=== PATIENT | female | born 1960 | race Caucasian/White ===

== ENCOUNTER 2016-08-10 07:14 | Emergency (ER) | payer BC, OTHER ==
[~2016-08-10] VITALS: Ht 162.6 cm; Wt 61.2 kg
[~2016-08-10 07:14] MED LIST: ACC200C; ACHYD1T PO; ACYC-109 PO; ASPI-587 PO; B IN1TAB2 PO; BIRTH CONTROL PILLS PO; BISO1TAB39; BISO5TAB8; BUPR150T49; CARV6.252 PO; CHLS4PK PO; CHOL200035 PO; CHOL239.; CHOL239. PO; CITA10TA PO; DCS100C PO; DEXL60CA5 PO; DICY10CA26; DOMPERIDONE 10MG PO; DOMPERIDONE PO; DULO30CA48 PO; DULO60CA6 PO; ESOM20CA; ESTR1TAB24 PO; FLC150T PO; FLUC200T45 PO; FLUO20CA25 PO; GABA-488 PO; GEMF600T3 PO; HYDR-2890 PO; HYDR1TAB PO; IBP800T PO; LEVO250T7 PO; LORA0.5T; LOW-OGESTREL; LVT.05T PO; LYSI500T13 PO; MELO-195 PO; MULT-68 PO; NITR-65 PO; NITR100C3 PO; NORG1TAB PO; OMEP20TA2 PO; ORPH100T PO; OXYB15TA PO; OXYC-100 PO; OXYC-309 PO; PHEN200T27 PO; PHEN37.555 PO; PRD50T PO; ROPI1TAB PO; TRAM50TA2 PO
[2016-08-10] MEDS ORDERED: fentaNYL INJECTION 100 MCG/2 ML AMP ONE (07:27)
[2016-08-10] MEDS ORDERED: fentaNYL INJECTION 100 MCG/2 ML AMP IVP ONE (07:30)
[2016-08-10 07:46] LABS: BASOPHILS % (AUTO) 1 % (0-10); EOSINOPHILS # (AUTO) 0.2 10^3/uL (0.0-0.3); EOSINOPHILS % (AUTO) 3 % (0-10); LYMPHOCYTES # (AUTO) 1.7 X 10^3 (1.0-4.0); LYMPHOCYTES % (AUTO) 26 % (12-44); MEAN CORPUSCULAR HEMOGLOBIN 30 PG (25-34); MEAN CORPUSCULAR HGB CONC 33 G/DL (32-36); MEAN CORPUSCULAR VOLUME 91 FL (80-99); MEAN PLATELET VOLUME 9.9 FL (7.4-10.4); MONOCYTES # (AUTO) 0.7 X 10^3 (0.0-1.0); MONOCYTES % (AUTO) 11 % (0-12); NEUTROPHILS # (AUTO) 3.9 X 10^3 (1.8-7.8); NEUTROPHILS % (AUTO) 60 % (42-75); PLATELET COUNT 246 10^3/uL (130-400); RED BLOOD COUNT 4.33 10^6/uL (4.35-5.85); RED CELL DISTRIBUTION WIDTH 13.4 % (10.0-14.5); WHITE BLOOD COUNT 6.6 10^3/uL (4.3-11.0)
[2016-08-10 07:57] LABS: PROTHROMBIN TIME PATIENT 12.4 SEC (12.2-14.7)
[2016-08-10] MEDS ORDERED: CLINDAMYCIN 900 MG/50 ML IVPB 50 ML IV ONE (08:00)
[2016-08-10] MEDS ORDERED: TETANUS,DIPTH,PERTUSS P/F (BOOSTRIX) 0.5 ML VIAL IM ONE (08:00)
[2016-08-10 08:06] LABS: ALANINE AMINOTRANSFERASE 15 U/L (0-55); ANION GAP 9 MMOL/L (5-14); ASPARTATE AMINO TRANSFERASE 24 U/L (5-34); BILIRUBIN,TOTAL 0.3 MG/DL (0.1-1.0); BLOOD UREA NITROGEN 13 MG/DL (7-18); BUN/CREATININE RATIO 19; CALCIUM 8.7 MG/DL (8.5-10.1); CARBON DIOXIDE 23 MMOL/L (21-32); CHLORIDE 109 MMOL/L (98-107); GFR ESTIMATED > 60; GLUCOSE 111 MG/DL (70-105); POTASSIUM 4.5 MMOL/L (3.6-5.0); SODIUM 141 MMOL/L (135-145); TOTAL PROTEIN 6.3 G/DL (6.4-8.2)
[2016-08-10 08:07] LABS: ALCOHOL < 10 MG/DL (<10)
[2016-08-10] MEDS ORDERED: HYDROmorphone (DILAUDID) 2 MG/ML VIAL IM STA (08:11)
[2016-08-10] MEDS ORDERED: HYDROmorphone (DILAUDID) 2 MG/ML VIAL ONE (08:12)
--- NOTE | 2016-08-10 08:14 | Diagnostic Imaging Report ---
EXAMINATION: 3 views of the left hand. INDICATION: Injury to the fifth metacarpal with a drill. FINDINGS: There is a comminuted fracture of the radial aspect of the neck of the fifth metatarsal with multiple bone fragments seen. The largest fragment is the 5 mm in length. The fracture does not appear to involve the entire transverse plane of the neck of the fifth metacarpal and appears limited to the radial aspect. No subluxation or dislocation. No other fracture seen. Air in the soft tissues is noted. IMPRESSION: Fracture with comminution involving the radial aspect of the neck of the fifth metacarpal bone. Dictated by: Dictated on workstation # [id number]
[2016-08-10] MEDS ORDERED: NS IV 500 ML 500 ML IV ONE (08:32)
[2016-08-10] MEDS ORDERED: NS IV 500 ML 500 ML ONE (08:33)
[2016-08-10] MEDS ORDERED: ONDANSETRON 4 MG/2 ML (SDV) Z0FRAN IVP ONE (08:45)
[2016-08-10] MEDS ORDERED: LIDOCAINE 1% INJ 20 ML (XYLOCAINE) VIAL INJ ONE (10:15)
--- NOTE | 2016-08-10 10:35 | ED Upper Extremity ---
General Chief Complaint: Upper Extremity Stated Complaint: LEFT HAND INJURY Nursing Triage Note: PT PRESENTS WITH A LT HAND INJURY, STATES SHE RAN A DRILL BIT THROUGH HER HAND WHILE AT WORK. BLEEDING IS CONTROLLED AT THIS TIME WITH A GAUZE DRESSING AND WRAP. Nursing Sepsis Screen: No Definite Risk Source: patient Exam Limitations: no limitations (BEBE HARDING MD) History of Present Illness Time seen by provider: 07:26 Initial Comments This 55 presents with left hand injury after she plunged a drill press through her hand. She has deviation of the fifth finger but retains sensation and capillary refill. Tendon function seems to be affected. Injury location likely involves tendons near the fifth metacarpal. Patient denies any other injuries. Onset: just prior to arrival (BEBE HARDING MD) Allergies and Home Medications Allergies Coded Allergies: Penicillins (Verified Allergy, Unknown, 03/09/08) Home Medications Acyclovir 400 Mg Tablet 400 MG PO BID (Reported) Aspirin 81 Mg Tablet. #14 81 MG PO DAILY Prescribed by: ZANDRA BEARD on 09/30/14 0921 Carvedilol 6.25 Mg Tablet 6.25 MG PO BID (Reported) Cholecalciferol (Vitamin D3) 2,000 Unit Capsule 4,000 UNIT PO DAILY (Reported) TAKE 2 (2,000UNITS) TABS Clindamycin HCl 300 Mg Capsule #40 300 MG PO QID Prescribed by: BEBE SEVERINO on 08/10/16 1036 Dexlansoprazole 60 Mg Cap.mp 60 MG PO BID (Reported) Duloxetine HCl 30 Mg Capsule. 30 MG PO HS (Reported) TAKE ALONG WITH 60MG TAB Duloxetine Hcl 60 Mg Capsule.dr 60 MG PO HS (Reported) Estradiol 1 Mg Tablet 1 MG PO DAILY (Reported) Fluoxetine Hcl 20 Mg Capsule 20 MG PO DAILY (Reported) Gabapentin 300 Mg Capsule 300 MG PO BID (Reported) Levothyroxine Sodium 50 Mcg Tablet 50 MCG PO DAILY (Reported) Lysine Hcl 500 Mg Tablet 500 MG PO DAILY (Reported) Meloxicam 15 Mg Tablet 15 MG PO DAILY (Reported) Multivitamins W-Iron 1 Tab Tablet 1 TAB PO DAILY (Reported) Oxybutynin Chloride 15 Mg Tab.osm.24 15 MG PO DAILY (Reported) Oxycodone HCl/Acetaminophen 1 Each Tablet #60 1-2 EACH PO Q6H PRN PRN PAIN Prescribed by: BEBE SEVERINO on 08/10/16 1036 Oxycodone Hcl/Acetaminophen 1 Tab Tablet 1-2 TAB PO Q4H PRN PRN PAIN (Reported) PRN PAIN Oxycodone Hcl/Acetaminophen 1 Each Tablet #30 1-2 EACH PO Q4H Prescribed by: JACKLYN GORE on 11/25/14 0922 Constitutional: no symptoms reported EENTM: no symptoms reported Respiratory: no symptoms reported Cardiovascular: no symptoms reported Gastrointestinal: no symptoms reported Genitourinary: no symptoms reported Musculoskeletal: see HPI Skin: see HPI Psychiatric/Neurological: No Symptoms Reported (BEBE HARDING MD) Past Ucxdqby-Gebqeo-Lfxxxj Hx Patient Social History Alcohol Use: Rarely Uses Recreational Drug Use: No Smoking Status: Current Everyday Smoker Type Used: Cigarettes Recent Foreign Travel: No Contact w/Someone Who Travel: No Recent Infectious Disease Expo: No Recent Hopitalizations: No (BEBE HARDING MD) Immunizations Up To Date Date of Influenza Vaccine: Mar 23, 2014 (BEBE HARDING MD) Seasonal Allergies Seasonal Allergies: Yes (BEBE HARDING MD) Surgeries HX Surgeries: Yes (LAP TONIA, BILAT C TUNNEL, NECK ARTHROSCOPY RIGHT/ KNEE, ERCP, SKIN LESION) Surgeries: Abdominal, Bladder Surgery, Gallbladder, Hysterectomy, Orthopedic (BEBE HARDING MD) Respiratory Hx Respiratory Disorders: No (BEBE HARDING MD) Cardiovascular Hx Cardiac Disorders: Yes Cardiac Disorders: Hypertension (BEBE HARDING MD) Neurological Hx Neurological Disorders: Yes (Gastroparesis) Neurological Disorders: Neuropathy (BEBE HARDING MD) Reproductive System : No Hx Reproductive Disorders: No Sexually 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 Disease: No [employer]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 [employer] History: Hysterectomy (BEBE HARDING MD) Genitourinary Hx Genitourinary Disorders: No Genitourinary Disorders: UTI-Chronic (BEBE HARDING MD) Gastrointestinal Hx Gastrointestinal Disorders: Yes (GASTROPEENPRISES, DUMPING SYNDROME, ) Gastrointestinal Disorders: Gastroesophageal Reflux (BEBE HARDING MD) Musculoskeletal Hx Musculoskeletal Disorders: Yes Musculoskeletal Disorders: Degenerate Disk Disease, Arthritis (BEBE HARDING MD) Endocrine Hx Endocrine Disorders: No (BEBE HARDING MD) HEENT HX ENT Disorders: Yes (PARTIAL PLATE, oral herpes) (BEBE HARDING MD) Cancer Hx Cancer: No (BEBE HARDING MD) Psychosocial Hx Psychiatric Problems: Yes Behavioral Health Disorders: Depression (BEBE HARDING MD) Integumentary HX Skin/Integumentary Disorder: No (BEBE HARDING MD) Blood Transfusions Hx Blood Disorders: No (BEBE HARDING MD) Physical Exam Vital Signs Vital Sign - Last 12Hours 08/10/16 07:20 Temp 97.8 Pulse 77 Resp 22 B/P 137/96 Pulse Ox 97 O2 Delivery Room Air (EDDIE IZQUIERDO APRN) Vital Signs Capillary Refill : Less Than 3 Seconds (BEBE HARDING MD) General Appearance: WD/WN moderate distress HEENT: PERRL/EOMI normal ENT inspection Neck: normal inspection Cardiovascular: regular rate, rhythm no edema no murmur Respiratory: lungs clear normal breath sounds no respiratory distress no accessory muscle use Shoulder: normal inspection non-tender no evidence of injury normal ROM Elbow/Forearm: normal inspection, non-tender, no evidence of injury, normal ROM Wrist: Yes normal inspection, Yes non-tender, Yes no evidence of injury, Yes normal ROM Hand: Left (Circular wound penetrating through the left hand near the distal fifth metacarpal. Minimal bleeding. Deviation of the fifth finger away from the hand. 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 nml as tested no motor/sensory deficits alert normal mood/affect oriented x 3 Skin: normal color warm/dry other (See above) (BEBE HARDING MD) Progress/Results/Core Measures Results/Orders Lab Results Laboratory Tests Test 08/10/16 07:25 Range/Units Activated Partial Thromboplast Time 28 24-35 SEC Alanine Aminotransferase (ALT/SGPT) 15 0-55 U/L Albumin 4.0 3.2-4.5 G/DL Alkaline Phosphatase 101 40-136 U/L Anion Gap 9 5-14 MMOL/L Aspartate Amino Transf (AST/SGOT) 24 5-34 U/L BUN/Creatinine Ratio 19 Basophils # (Auto) 0.0 0.0-0.1 10^3/uL Basophils (%) (Auto) 1 0-10 % Blood Urea Nitrogen 13 7-18 MG/DL Calcium Level 8.7 8.5-10.1 MG/DL Carbon Dioxide Level 23 21-32 MMOL/L Chloride Level 109 H 98-107 MMOL/L Creatinine 0.70 0.60-1.30 MG/DL Eosinophils # (Auto) 0.2 0.0-0.3 10^3/uL Eosinophils (%) (Auto) 3 0-10 % Estimat Glomerular Filtration Rate > 60 Glucose Level 111 H 70-105 MG/DL Hematocrit 39 35-52 % Hemoglobin 13.1 11.5-16.0 G/DL INR Comment 1.0 0.8-1.4 Lymphocytes # (Auto) 1.7 1.0-4.0 X 10^3 Lymphocytes (%) (Auto) 26 12-44 % Mean Corpuscular Hemoglobin 30 25-34 PG Mean Corpuscular Hemoglobin Concent 33 32-36 G/DL Mean Corpuscular Volume 91 80-99 FL Mean Platelet Volume 9.9 7.4-10.4 FL Monocytes # (Auto) 0.7 0.0-1.0 X 10^3 Monocytes (%) (Auto) 11 0-12 % Neutrophils # (Auto) 3.9 1.8-7.8 X 10^3 Neutrophils (%) (Auto) 60 42-75 % Platelet Count 246 130-400 10^3/uL Potassium Level 4.5 3.6-5.0 MMOL/L Prothrombin Time 12.4 12.2-14.7 SEC Red Blood Count 4.33 L 4.35-5.85 10^6/uL Red Cell Distribution Width 13.4 10.0-14.5 % Serum Alcohol < 10 <10 MG/DL Sodium Level 141 135-145 MMOL/L Total Bilirubin 0.3 0.1-1.0 MG/DL Total Protein 6.3 L 6.4-8.2 G/DL White Blood Count 6.6 4.3-11.0 10^3/uL (EDDIE IZQUIERDO APRN) Medications Given in ED Current Medications Medications Dose Ordered Sig/Abhinav Route Start Time Stop Time Status Last Admin Dose Admin Clindamycin Phosphate/Dextrose 50 ml @ 100 mls/hr ONCE ONCE IV 08/10/16 08:00 08/10/16 08:29 DC 08/10/16 08:20 100 MLS/HR Diphtheria/ Tetanus/Acell Pertussis 0.5 ml 0.5 ml ONCE ONCE IM 08/10/16 08:00 08/10/16 08:01 DC 08/10/16 08:20 0.5 ML Fentanyl Citrate 100 mcg 100 mcg STK-MED ONCE .ROUTE 08/10/16 07:27 08/10/16 07:29 DC 08/10/16 07:33 100 MCG Ondansetron HCl 8 mg ONCE ONCE IVP 08/10/16 08:45 08/10/16 08:46 DC 08/10/16 08:48 8 MG Sodium Chloride 500 ml @ 0 mls/hr Q0M ONCE IV 08/10/16 08:32 08/10/16 08:34 DC 08/10/16 08:35 100 MLS/HR (EDDIE IZQUIERDO APRN) Vital Signs/I&O Vital Sign - Last 12Hours 08/10/16 07:20 Temp 97.8 Pulse 77 Resp 22 B/P 137/96 Pulse Ox 97 O2 Delivery Room Air (EDDIE IZQUIERDO APRN) Blood Pressure Mean: 110 Progress Note : Progress Note Pain was controlled with fentanyl and Dilaudid. X-ray showed fracture of the distal fifth metacarpal. Tetanus immunization was administered. Case was reviewed with Dr. Lira who also reviewed it with Dr. Sumner. They advised wound debridement and irrigation in the emergency room, antibiotic administration, and splinting. She should contact Dr. Sumner's office for an appointment time early next week. Patient received fentanyl and Dilaudid for pain management. Clindamycin 900 mg IV was administered for initial antibiotic prophylaxis. Wound was debrided and irrigated by Eddie Izquierdo APRN. Hand was dressed and splinted with a Colles' splint. (BEBE HARDING MD) Diagnostic Imaging Diagonstic Imaging: Xray Plain Films/CT/US/NM/MRI: hand Comments Left hand x-ray viewed by me and report reviewed. See report below: NAME: TEE WHYTE [facility] REC#: [id number] PT STATUS: REG ER : 1960 PHYSICIAN: BEBE HARDING MD ADMIT DATE: 08/10/16/ER Signed Date of Exam: 08/10/16 HAND, LEFT, 3 VIEWS EXAMINATION: 3 views of the left hand. INDICATION: Injury to the fifth metacarpal with a drill. FINDINGS: There is a comminuted fracture of the radial aspect of the neck of the fifth metatarsal with multiple bone fragments seen. The largest fragment is the 5 mm in length. The fracture does not appear to involve the entire transverse plane of the neck of the fifth metacarpal and appears limited to the radial aspect. No subluxation or dislocation. No other fracture seen. Air in the soft tissues is noted. IMPRESSION: Fracture with comminution involving the radial aspect of the neck of the fifth metacarpal bone. Dictated by: Dictated on workstation # [id number] Dict: 08/10/16801 Trans: 08/10/16816 [facility] [id number] Interpreted by: JULISSA MULLER MD Electronically signed by:JULISSA MULLER MD 08/10/16 08 (BEBE HARDING MD) Departure Communication Progress Notes 1037-hand was anesthetized with a total of 8 mL of 1 percent lidocaine without epinephrine. I then thoroughly irrigated through the wound channel with 500 mL of saline and a splash shield. No foreign bodies were identified upon exploration at the end of this. This was not sutured given the contaminated nature of it. Rather, 4 x 4 gauze was placed over the dorsal and volar wound entrances, wrapped with gauze and placed in a Colles' splint. Patient has been given clindamycin and has orthopedic follow-up scheduled. (EDDIE IZQUIERDO APRN) Impression Impression: Primary Impression: Open fracture of fifth metacarpal bone of left hand Qualified Code: S62.337B - Displaced fracture of neck of fifth metacarpal bone , left hand, initial encounter for open fracture Additional Impression: Injury of tendon of left hand Qualified Code: S66.902A - Unspecified injury of unspecified muscle, fascia and tendon at wrist and hand level, left hand, initial encounter Disposition: 01 HOME, SELF-CARE Condition: Improved Departure-Patient Inst. Decision time for Depature: 09:30 (BEBE HARDING MD) Referrals: COURTNEY DONOVAN MD (PCP/Family) Primary Care Physician HELENE SUMNER DO Patient Instructions: Hand Fracture Add. Discharge Instructions: Keep the left hand elevated to the level of the heart as much as possible. Change dressing as needed when soiled. Call Dr. Sumner's office today to schedule an appointment early next week. Use your pain medications as prescribed. Icing in 20 minute intervals may help with pain and swelling. Return to care if you have problems or concerns, especially if you develop signs of infection such as pus like drainage, increasing redness, increasing pain, or fever. Complete your antibiotics as prescribed unless otherwise directed by a physician. All discharge instructions reviewed with patient and/or family. Voiced understanding. Scripts Clindamycin HCl 300 Mg [id number] Mg PO QID #40 CAP Prov:BEBE HARDING MD 08/10/16 Oxycodone HCl/Acetaminophen (Percocet 5-325 mg Tablet)1 Each Tablet1-2 Each PO Q6H PRN PAIN #60 TAB Prov:BEBE HARDING MD 08/10/16 Copy Copies To 1: HELENE SUMNER JOSHUA T MD Aug 10, 2016 10:35 EDDIE IZQUIERDO APRN Aug 10, 2016 10:39
[2016-08-10] MEDS ORDERED: OXYC-197 PO (10:36)
[2016-08-10] MEDS ORDERED: CLIN300C11 PO (10:36)
[2016-08-10 11:17] VITALS: BP 122/72
== END 2016-08-10 11:17 | disposition home or self-care (01) ==
LOC: EDUNIT# 07:14 → ER 07:16
DX: S62.337B Displaced fracture of neck of fifth metacarpal bone, left hand, initial encounter for open fracture (principal); S66.902A Unspecified injury of unspecified muscle, fascia and tendon at wrist and hand level, left hand, initial encounter; Z23 Encounter for immunization; F17.210 Nicotine dependence, cigarettes, uncomplicated; Z79.899 Other long term (current) drug therapy; Z79.82 Long term (current) use of aspirin; W31.1XXA Contact with metalworking machines, initial encounter; Y92.59 Other trade areas as the place of occurrence of the external cause; Y99.0 Civilian activity done for income or pay
CPT/HCPCS: 36415; 73130; 80053; 80320; 85025; 85610; 85730; 90471; 90715; 96361; 96365; 96375

== ENCOUNTER → 2017-07-25 | Outpatient (CLI) | payer OTHER ==
[~2017-07-25] MED LIST changes: +CLIN300C11 PO; +OXYC-197 PO
--- NOTE | 2017-07-25 12:09 | Diagnostic Imaging Report ---
Indication: Routine screening. Comparison: Comparison is made with prior exams from 02/08/2015 and 12/29/2013. The current study was also evaluated with a Computer Aided Detection (CAD) system. Findings: Scattered parenchymal densities are identified bilaterally. The parenchymal pattern is stable. No dominant mass or malignant-appearing microcalcifications are seen. Axillae are unremarkable. Impression: BI-RADS category 1. No mammographic features suspicious for malignancy are identified. ACR BI-RADS Category 1: Negative. Result letter will be mailed to the patient. Note: At least 10% of breast cancer is not imaged by mammography. Dictated on workstation # [id number]
== END ==
LOC: RAD 09:58
PROVIDERS: ATTEND Obstetrics & Gynecology
DX: Z12.31 Encounter for screening mammogram for malignant neoplasm of breast (principal)
CPT/HCPCS: 77067

== ENCOUNTER → 2018-02-08 | Outpatient (CLI) | payer OTHER ==
--- NOTE | 2018-02-08 16:57 | Diagnostic Imaging Report ---
EXAM: MRI left foot and ankle without contrast. DATE: February 08, 2018. INDICATION: 57-year-old female, lump at the volar aspect of the foot for 3-4 weeks. COMPARISON: None. TECHNIQUE: Multiple noncontrast MRI sequences at the level of the left foot and ankle were obtained. FINDINGS: There is inconsistent nwjwl-um-pfrz of imaging, amongst the imaging sequences provided. A marker was placed at the area of specific focal concern. There is a nodular area of signal measuring approximately 15 x 10 x 7 mm in size at this location which is volar to the base of the fifth metatarsal. This lesion is similar in signal to skeletal muscle on the T1-weighted sequence and is slightly T2 hypointense. Postcontrast images were not obtained. This limits assessment for internal enhancement and evaluation of potential malignancy. This abnormality is nonspecific. There is thickening of the medial cord of the plantar fascia. There is a calcaneal heel spur. There is no evidence of active plantar fasciitis. There is common peroneal tenosynovitis and tenosynovitis of tibialis posterior and flexor digitorum longus. There is no identified tendon tear. The Lisfranc ligament proper is intact. The anterior talofibular, posterior talofibular, and calcaneofibular ligaments appear intact. The anterior and posterior syndesmotic ligaments are intact. The Achilles tendon is intact. There is no acute fracture, bone contusion, or evidence of osteonecrosis. There is a ciqzkbfl-gn-mlxzq posterior subtalar joint effusion. There is no tibiotalar joint effusion. IMPRESSION: 1. Nonspecific round mass-like area of abnormal signal within the volar soft tissues at the level of the fifth metatarsal base measuring approximately 15 x 10 x 7 mm in size. Limitations for assessment of enhancement given lack of intravenous contrast. This is entirely nonspecific in appearance. 2. Common peroneal tenosynovitis and tenosynovitis of tibialis posterior and flexor digitorum longus. No identified tendon tear. 3. Veboeifz-im-aukcz posterior subtalar joint effusion. Dictated on workstation # [id number]
== END ==
LOC: RAD 15:03
PROVIDERS: ATTEND Podiatrist Foot & Ankle Surgery
DX: M65.872 Other synovitis and tenosynovitis, left ankle and foot (principal)
CPT/HCPCS: 73721

== ENCOUNTER 2018-04-24 05:37 | Outpatient (CLI) | payer OTHER ==
[~2018-04-24] VITALS: Ht 162.6 cm; Wt 63.0 kg
[~2018-04-24 05:37] MED LIST changes: -OXYC-197 PO; +OXYC1TAB87 PO
[2018-04-24] MEDS ORDERED: GABA800T2 PO (12:48)
[2018-04-24] MEDS ORDERED: ESTR1TAB24 PO (12:48)
[2018-04-24] MEDS ORDERED: CHOL4PAC PO (12:48)
[2018-04-24] MEDS ORDERED: ACYC400T PO (12:48)
[2018-04-24] MEDS ORDERED: CARV6.252 PO (12:48)
[2018-04-24] MEDS ORDERED: FLUC200T PO (12:48)
[2018-04-24] MEDS ORDERED: OXYB15TA PO (12:48)
[2018-04-24] MEDS ORDERED: LEVO75TA6 PO (12:48)
[2018-04-24] MEDS ORDERED: FLUO40CA PO (12:48)
[2018-04-24] MEDS ORDERED: MELO15TA39 PO (12:48)
== END 2018-04-24 14:01 | disposition home or self-care (01) ==
LOC: PREOP 05:37
PROVIDERS: ATTEND Urology
DX: Z01.818 Encounter for other preprocedural examination (principal)

== ENCOUNTER 2018-04-26 06:57 | Day surgery (SDC) | payer OTHER ==
[~2018-04-26] VITALS: Ht 162.6 cm; Wt 63.0 kg
[~2018-04-26 06:57] MED LIST changes: +ACYC400T PO; +CHOL4PAC PO; +FLUC200T PO; +FLUO40CA PO; +GABA800T2 PO; +LEVO75TA6 PO; +MELO15TA39 PO
--- OUTSIDE RECORDS SUMMARY | 2018-04-26 07:00 | XMS REPORT | Clinical Summary ---
Author Author [facility] Organization [facility] Address Unknown Phone Unavailable Care Team Providers Care Endoscopy Support Specialist Name Role Phone Sandy Casanova MD PCP Source Comments Some departments are not documenting in the electronic medical record. If you do not see the information that you expected, contact Release of Information in the Health Information Management department at [phone] for further assistance in locating additional records.[facility] Allergies Active Allergy Reactions Severity Noted Date Comments Penicillins SEE COMMENTS Low 04/25/2017 Unconscious Current Medications Prescription Sig. Disp. Refills Start End Date Status Date acyclovir (ZOVIRAX) 400 Take 400 mg by mouth 02/12/20 Active mg tablet daily. 17 carvedilol (COREG) 6.25 Take 6.25 mg by mouth 02/12/20 Active mg tablet daily. 17 CHOLESTYRAMINE LIGHT 4 Take 1 packet by mouth 02/12/20 Active gram packet daily. 17 estradiol (ESTRACE) 1 mg Take 1 mg by mouth daily. 02/12/20 Active tablet 17 fluconazole (DIFLUCAN) Take 200 mg by mouth 03/20/20 Active 200 mg tablet every 7 days. Mondays 17 fluoxetine(+) (PROZAC) 40 Take 40 mg by mouth 02/12/20 Active mg capsule daily. 17 gabapentin (NEURONTIN) Take 800 mg by mouth 02/12/20 Active 800 mg tablet twice daily. 17 levothyroxine (SYNTHROID) Take 75 mcg by mouth 02/12/20 Active 75 mcg tablet daily 30 minutes before 17 breakfast. meloxicam (MOBIC) 15 mg Take 15 mg by mouth 02/12/20 Active tablet daily. 17 oxybutynin XL (DITROPAN Take 15 mg by mouth 02/12/20 Active XL) 15 mg tablet daily. 17 calcium carbonate (TUMS) Chew 1,000 mg by mouth Active 500 mg (200 mg elemental daily as needed. calcium) chewable tablet pantoprazole DR Take 40 mg by mouth twice Active (PROTONIX) 40 mg tablet daily. 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 Displaced fracture of neck of left fifth metacarpal bone with routine 2016 healing Overview: Added automatically from request for surgery [id number] Trigger finger 05/21/2017 Overview: Added automatically from request for surgery [id number] Closed displaced fracture of neck of fifth metacarpal bone of left hand with routine healing Laceration of left hand 05/07/2017 Family History Medical History Relation Name Comments Stroke Mother Osteoporosis Sister Relation Name Status Comments Mother Sister Social History Tobacco Use Types Packs/Day Years Used Date Current Every Day Smoker 1 23 Smokeless Tobacco: Never Used Alcohol Use Drinks/Week oz/Week Comments Yes very rarely Sex Assigned at Date Recorded Not on file Last Filed Vital Signs Vital Sign Reading Time Taken Blood Pressure 116/70 10/12/2017 11:03 AM CDT Pulse 61 10/12/2017 11:03 AM CDT Temperature 36.8 C (98.2 F) 07/05/2017 1:47 PM [employer] Respiratory Rate - - Oxygen Saturation 97% 07/05/2017 3:15 PM [employer] Inhaled Oxygen - - Concentration Weight 61.2 kg (135 lb) 10/12/2017 11:03 AM CDT Height 162.6 cm (5' 4.02") 10/12/2017 11:03 AM CDT Body Mass Index 23.16 10/12/2017 11:03 AM CDT Plan of Treatment Health Maintenance Due Date Last Done Comments HEPATITIS C SCREENING 1960 PHYSICAL (COMPREHENSIVE) 12/07/1966 EXAM PERTUSSIS VACCINE 12/07/1970 HIV SCREENING 12/07/1974 TETANUS VACCINE 12/07/1976 CERVICAL CANCER SCREENING 12/07/1989 BREAST CANCER SCREENING 1999 COLORECTAL CANCER 12/07/2009 SCREENING SHINGLES RECOMBINANT 12/07/2009 VACCINE (1 of 2) INFLUENZA VACCINE 01/23/2018 Results Not on filefrom Last 3 Months
--- OUTSIDE RECORDS SUMMARY | 2018-04-26 07:03 | XMS REPORT | CCD ---
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 Name Role Phone PP Unavailable CCM Unavailable Summary Purpose Interface Exchange Insurance Providers Payer name Policy type / Coverage type Covered libertarian ID Effective Begin Date Effective End Date [facility] [employer] Insurance [id number] Unknown Family history Father Diagnosis Age At Onset Hypertension Unknown Diabetes Unknown Arthritis Unknown Diabetes Unknown Sister Diagnosis Age At Onset Anemia Unknown Diabetes Unknown Hyperlipidemia Unknown Osteoporosis Unknown Arthritis Unknown Hypertension Unknown Mother Diagnosis Age At Onset Anemia Unknown Hypertension Unknown Stroke Unknown Heart Attack Unknown Diabetes Unknown Arthritis Unknown Social History Social History Element Codes Description Effective Dates Marital status Unknown Kaveh 11/01/2016 Employment Unknown Currently employed [employer] 01/06/[address]: 21816826 Current every day smoker 01/06/2016 Number of cigarettes/day Unknown 10 ( Half a pack) 01/06/2016 Number of children Unknown 2 12/01/[address]: 216036384 Never drinks alcohol 12/01/2014 Allergies, Adverse Reactions, Alerts Substance Reaction Codes Entered Date Inactivated Date Status Penicillin Unknown 12/01/2014 No Inactive Date Active Past Medical History Illness Codes Condition Status Onset Date Resolved Date Atrophy of thyroid (acquired) ICD-9: 244.8 ICD-10: E03.4 Active 03/06/2016 Unknown Encounter for general adult medical examination without abnormal findings ICD-9: V70.0 ICD-10: Z00.00 Active 11/05/2017 Unknown Essential (primary) hypertension ICD-9: 401.1 ICD-10: I10 Active 07/04/2016 Unknown Major depressive disorder, recurrent, moderate ICD-9: 296.32 ICD-10: F33.1 Active 03/06/2016 Unknown Other chronic pain ICD -9: 338.29 ICD-10: G89.29 Active 11/30/2014 Unknown VACCIN FOR INFLUENZA ICD-9: V04.81 ICD-10: Z23 Active 04/30/2017 Unknown Acute bronchitis due to other specified organisms ICD-9: 466.0 ICD-10: J20.8 Active 12/13/2016 Unknown Bitten or stung by nonvenomous insect and other nonvenomous arthropods, initial encounter ICD-9: 919.4 ICD-10: W57.XXXA Active 12/13/2016 Unknown Pain in left hand ICD- 9: 729.5 ICD-10: M79.642 Active 12/13/2016 Unknown Encounter for screening mammogram for malignant neoplasm of breast ICD-9: V76.12 ICD-10: Z12.31 Active 11/01/2016 Unknown Dysuria ICD-9: 788.1 ICD-10: R30.0 Active 03/06/2016 Unknown Hypothyroidism, unspecified ICD-9: 244.9 ICD-10: E03.9 Active 11/30/2014 Unknown Major depressive disorder, recurrent, unspecified ICD-9: 296.30 ICD-10: F33.9 Active 03/06/2016 Unknown Iliotibial band syndrome, right leg ICD-9: 728.89 ICD-10: M76.31 Active 01/05/2016 Unknown Lateral epicondylitis, right elbow ICD-9: 726.32 ICD-10: M77.11 Active 09/06/2015 Unknown Pain in right hip ICD- 9: 719.45 ICD-10: M25.551 Active 09/06/2015 Unknown Hyperlipidemia Unknown Active 12/01/2014 Unknown Hypothryroidism Unknown Active 12/01/2014 Unknown Chronic pain ICD-9: 338.29 Active 11/30/2014 Unknown ESOPHAGEAL REFLUX ICD- 9: 530.81 Active 11/30/2014 Unknown HYPOTHYROIDISM ICD-9: 244.9 Active 11/30/2014 Unknown Problems Condition Codes Effective Dates Condition Status Atrophy of thyroid (acquired) ICD-9: 244.8 ICD-10: E03.4 03/06/2016 Active Encounter for general adult medical examination without abnormal findings ICD-9: V70.0 ICD-10: Z00.00 11/05/2017 Active Essential (primary) hypertension ICD-9: 401.1 ICD-10: I10 07/04/2016 Active Major depressive disorder, recurrent, moderate ICD-9: 296.32 ICD-10: F33.1 03/06/2016 Active Other chronic pain ICD -9: 338.29 ICD-10: G89.29 11/30/2014 Active VACCIN FOR INFLUENZA ICD-9: V04.81 ICD-10: Z23 04/30/2017 Active Acute bronchitis due to other specified organisms ICD-9: 466.0 ICD-10: J20.8 12/13/2016 Active Bitten or stung by nonvenomous insect and other nonvenomous arthropods, initial encounter ICD-9: 919.4 ICD-10: W57.XXXA 12/13/2016 Active Pain in left hand ICD- 9: 729.5 ICD-10: M79.642 12/13/2016 Active Encounter for screening mammogram for malignant neoplasm of breast ICD-9: V76.12 ICD-10: Z12.31 11/01/2016 Active Dysuria ICD-9: 788.1 ICD-10: R30.0 03/06/2016 Active Hypothyroidism, unspecified ICD-9: 244.9 ICD-10: E03.9 11/30/2014 Active Major depressive disorder, recurrent, unspecified ICD-9: 296.30 ICD-10: F33.9 03/06/2016 Active Iliotibial band syndrome, right leg ICD-9: 728.89 ICD-10: M76.31 01/05/2016 Active Lateral epicondylitis, right elbow ICD-9: 726.32 ICD-10: M77.11 09/06/2015 Active Pain in right hip ICD- 9: 719.45 ICD-10: M25.551 09/06/2015 Active Hyperlipidemia Unknown 12/01/2014 Active Hypothryroidism Unknown 12/01/2014 Active Chronic pain ICD-9: 338.29 11/30/2014 Active ESOPHAGEAL REFLUX ICD- 9: 530.81 11/30/2014 Active HYPOTHYROIDISM ICD-9: 244.9 11/30/2014 Active Medications Medication Codes Instructions Start Date Stop Date Status Fill Instructions Questran Light 4 gram oral powder RxNorm: 5335336 1 PO BID as needed 1 PACKET PO BID NEEDED 02/11/2018 05/06/2019 Active Different instructions!Patient requests 90 days supply Coreg 6.25 mg tablet RxNorm: 408989 TAKE 1 TABLET BY MOUTH TWICE A DAY 01/31/2018 01/25/2019 Active - Ref: [id number] levothyroxine 75 mcg tablet RxNorm: 661968 TAKE 1 TABLET BY MOUTH DAILY 01/31/2018 01/25/2019 Active - Ref: [id number] meloxicam 15 mg tablet RxNorm: 167098 Tablet(s) TAKE 1 TABLET BY MOUTH DAILY 11/05/2017 10/30/2018 Active pantoprazole 40 mg tablet,delayed release RxNorm: 954565 1 Tablet(s) PO BID 11/05/2017 10/30/2018 Active acyclovir 400 mg tablet RxNorm: 046394 Tablet(s) TAKE 1 TABLET BY MOUTH DAILY 11/05/2017 10/30/2018 Active fluoxetine 40 mg capsule RxNorm: 135991 Capsule(s) TAKE 1 CAPSULE BY MOUTH DAILY 11/05/2017 10/30/2018 Active hydrocodone 10 mg-acetaminophen 325 mg tablet RxNorm: 211911 1 Tablet(s) PO QID as needed pain 11/05/2017 12/04/2017 Inactive gabapentin 800 mg tablet RxNorm: 887240 1 Tablet(s) PO BID 10/30/2018 Active oxybutynin chloride ER 15 mg tablet,extended release 24 hr RxNorm: 494325 Tablet(s ) TAKE 1 TABLET BY MOUTH DAILY 11/05/2017 10/30/2018 Active pantoprazole 40 mg tablet,delayed release RxNorm: 768380 1 Tablet(s) PO BID 11/05/2017 11/04/2017 Inactive fluoxetine 40 mg capsule RxNorm: 986632 TAKE 1 CAPSULE BY MOUTH DAILY 08/13/2017 11/04/2017 Inactive - First Attempt Ref: [id number] gabapentin 800 mg tablet RxNorm: 277791 1 Tablet(s) PO BID 11/04/2017 Inactive hydrocodone 10 mg-acetaminophen 325 mg tablet RxNorm: 613240 1 Tablet(s) PO QID as needed pain 07/13/2017 08/11/2017 Inactive meloxicam 15 mg tablet RxNorm: 375002 TAKE 1 TABLET BY MOUTH DAILY 06/19/2017 11/04/2017 Inactive - Ref: [id number] acyclovir 400 mg tablet RxNorm: 146827 TAKE 1 TABLET BY MOUTH DAILY 06/19/2017 09/16/2017 Inactive - Ref: [id number] oxybutynin chloride ER 15 mg tablet,extended release 24 hr RxNorm: 088603 TAKE 1 TABLET BY MOUTH DAILY 06/19/20172017 Inactive - Ref: [id number] hydrocodone 10 mg-acetaminophen 325 mg tablet RxNorm: 709345 1 Tablet(s) PO QID as needed pain 04/30/2017 05/29/2017 Inactive dexlansoprazole 60 mg capsule,biphase delayed release RxNorm: 505003 1 Capsule(s) PO BID 03/06/2017 11/04/2017 Inactive oxycodone-acetaminophen 5 mg-325 mg tablet RxNorm: 1796436 1to 2 Tablet(s) PO Q4H as needed 02/05/2017 No Stop Date Active meloxicam 15 mg tablet RxNorm: 699469 Take 1 tablet by mouth daily 01/12/2017 06/18/2017 Inactive - First Attempt Ref: [id number] doxycycline hyclate 100 mg capsule RxNorm: 5821540 1 Capsule(s) PO BID 12/13/2016 12/26/2016 Inactive Coreg 6.25 mg tablet RxNorm: 570570 Tablet(s) Take 1 tablet by mouth two times daily 11/24/2016 11/18/2017 Inactive levothyroxine 75 mcg tablet RxNorm: 804818 1 Tablet(s) PO daily take 30 minutes prior to taking other medications or eating 11/22/2016 11/16/2017 Inactive Coreg 6.25 mg tablet RxNorm: 852534 Take 1 tablet by mouth two times daily 11/21/2016 11/23/2016 Inactive - Ref: [id number] levothyroxine 50 mcg tablet RxNorm: 163703 Take 1 tablet by mouth daily 11/21/2016 11/21/2016 Inactive - Ref: [id number] acyclovir 400 mg tablet RxNorm: 899265 Take 1 tablet by mouth daily Rx written by ANTONINO: LUIS MONTANO 11/21/2016 06/18/2017 Inactive - Ref: [id number] Dexilant 60 mg capsule, delayed release RxNorm: 536462 1 Capsule(s) PO BID 11/01/2016 01/24/2018 Inactive estradiol 1 mg tablet RxNorm: 967359 1 Tablet(s) PO daily 201601/24/2018 Inactive levothyroxine 75 mcg tablet RxNorm: 064055 1 Tablet(s) PO daily take 30 minutes prior to taking other medications or eating 11/01/2016 11/21/2016 Inactive estradiol 1 mg tablet RxNorm: 884056 1 Tablet(s) PO daily 201610/31/2016 Inactive oxybutynin chloride ER 15 mg tablet,extended release 24 hr RxNorm: 579379 1 Tablet (s) PO daily 11/01/2016 06/18/2017 Inactive gabapentin 800 mg tablet RxNorm: 299803 1 Tablet(s) PO UD 1/2 pill in morning and 1 pill at bedtime 11/01/2016 07/12/2017 Inactive meloxicam 15 mg tablet RxNorm: 400173 1 Tablet(s) PO daily Take 1 tablet by mouth daily 11/01/2016 01/11/2017 Inactive - First Attempt Ref: [id number] acyclovir 400 mg tablet RxNorm: 772488 1 Tablet(s) PO daily 03/201711/20/2016 Inactive Coreg 6.25 mg tablet RxNorm: 887805 1 Tablet(s) PO BID 201611/20/2016 Inactive fluoxetine 40 mg capsule RxNorm: 287956 1 Capsule(s) PO daily 11/01/2016 08/12/2017 Inactive meloxicam 15 mg tablet RxNorm: 828869 Take 1 tablet by mouth daily 07/24/2016 10/31/2016 Inactive - First Attempt Ref: [id number] oxybutynin chloride ER 15 mg tablet,extended release 24 hr RxNorm: 252604 1 Tablet (s) PO daily 07/19/2016 10/31/2016 Inactive fluoxetine 40 mg capsule RxNorm: 704381 1 Capsule(s) PO daily 07/19/2016 10/31/2016 Inactive gabapentin 800 mg tablet RxNorm: 965996 1 Tablet(s) PO UD 1/2 pill in morning and 1 pill at bedtime 07/19/2016 10/31/2016 Inactive Questran Light 4 gram oral powder RxNorm: 8794165 1 PO BID as needed 1 PACKET PO BID NEEDED 07/19/2016 10/11/2017 Inactive Different instructions!Patient requests 90 days supply fluoxetine 40 mg capsule RxNorm: 395033 1 Capsule(s) PO daily 07/04/2016 07/18/2016 Inactive oxybutynin chloride ER 15 mg tablet,extended release 24 hr RxNorm: 165329 1 Tablet (s) PO daily 07/04/2016 07/18/2016 Inactive Questran Light 4 gram oral powder RxNorm: 6527935 1 PO BID as needed 1 PACKET PO BID NEEDED 07/04/2016 07/18/2016 Inactive Different instructions!Patient requests 90 days supply gabapentin 800 mg tablet RxNorm: 026013 1 Tablet(s) PO UD 1/2 pill in morning and 1 pill at bedtime 07/04/2016 07/18/2016 Inactive Questran Light 4 gram oral powder RxNorm: 8056246 1 PACKET PO TID NEEDED 05/24/2016 10/20/2016 Inactive Patient requests 90 days supply Questran Light 4 gram oral powder RxNorm: 4740747 1 PACKET PO BID NEEDED 05/24/2016 07/03/2016 Inactive Different instructions!Patient requests 90 days supply Questran Light 4 gram oral powder RxNorm: 9407282 1 packet PO BID as needed 05/23/2016 05/23/2016 Inactive Different instructions! Questran Light 4 gram oral powder RxNorm: 7253889 1 packet PO TID as needed 05/23/2016 05/22/2016 Inactive Questran Light 4 gram oral powder RxNorm: 2447428 1 packet PO TID as needed 03/07/2016 05/22/2016 Inactive gabapentin 800 mg tablet RxNorm: 980650 1 Tablet(s) PO UD 1/2 pill in morning and 1 pill at bedtime 03/07/2016 07/03/2016 Inactive meloxicam 15 mg tablet RxNorm: 638884 1 Tablet(s) PO daily 07/03/2016 Inactive duloxetine 60 mg capsule,delayed release RxNorm: 746159 1 Capsule(s) PO QHS take in additon to 30mg pills 01/06/20162015 Inactive levothyroxine 75 mcg tablet RxNorm: 851116 1 Tablet(s) PO daily take 30 minutes prior to taking other medications or eating 01/06/2016 07/03/2016 Inactive hydrocodone 10 mg-acetaminophen 325 mg tablet RxNorm: 409369 1 Tablet(s) PO QID as needed pain 01/06/2016 02/04/2016 Inactive meloxicam 15 mg tablet RxNorm: 704330 1 Tablet(s) PO daily 01/05/2016 Inactive levothyroxine 75 mcg tablet RxNorm: 255575 1 Tablet(s) PO daily take 30 minutes prior to taking other medications or eating 01/06/2016 01/05/2016 Inactive fluoxetine 10 mg capsule RxNorm: 689478 1 Capsule(s) PO daily 01/06/2016 07/03/2016 Inactive gabapentin 300 mg capsule RxNorm: 662862 1 Capsule(s) PO BID 01/05/2016 Inactive take one capsule by mouth every 6 hours as needed and 1 capsule bymouth every night at bedtime gabapentin 300 mg capsule RxNorm: 878485 1 Capsule(s) PO QAM and 2 Capsules PO QPM 01/06/2016 03/06/2016 Inactive meloxicam 15 mg tablet RxNorm: 423562 1 Tablet(s) PO daily 01/05/2016 Inactive duloxetine 30 mg capsule,delayed release RxNorm: 843712 Capsule(s) 1 CAPSULE(S) PO QHS 09/21/2015 06/19/2016 Inactive Coreg 6.25 mg tablet RxNorm: 773132 1 Tablet(s) PO BID 201510/31/2016 Inactive fluoxetine 20 mg capsule RxNorm: 669898 1 Capsule(s) PO daily 09/21/2015 01/05/2016 Inactive acyclovir 400 mg tablet RxNorm: 740508 1 Tablet(s) PO daily 10/31/2016 Inactive levothyroxine 50 mcg tablet RxNorm: 372305 1 Tablet(s) PO daily 09/21/2015 01/05/2016 Inactive Cipro 500 mg tablet RxNorm: 235930 1 Tablet(s) PO BID 201508/02/2015 Inactive Cipro 500 mg tablet RxNorm: 151543 1 Tablet(s) PO BID 201508/09/2015 Inactive Diflucan 150 mg tablet RxNorm: 311847 1 Tablet(s) PO daily take after you finish cipro 08/03/2015 08/02/2015 Inactive Diflucan 150 mg tablet RxNorm: 338609 1 Tablet(s) PO daily take after you finish cipro 08/03/2015 08/09/2015 Inactive Coreg 6.25 mg tablet RxNorm: 572874 1 Tablet(s) PO BID 201409/20/2015 Inactive levothyroxine 50 mcg tablet RxNorm: 048332 1 Tablet(s) PO daily 05/19/2015 09/20/2015 Inactive fluoxetine 20 mg capsule RxNorm: 150806 1 Capsule(s) PO daily 03/26/2015 09/20/2015 Inactive duloxetine 30 mg capsule,delayed release RxNorm: 758666 1 CAPSULE(S) PO QHS 03/22/2015 09/20/2015 Inactive doxycycline hyclate 100 mg capsule RxNorm: 6237927 1 Capsule(s) PO BID 02/25/2015 03/06/2015 Inactive doxycycline hyclate 100 mg capsule RxNorm: 7336413 1 Capsule(s) PO BID 02/25/2015 02/24/2015 Inactive gabapentin 300 mg capsule RxNorm: 101120 1 Capsule(s) PO BID 01/05/2016 Inactive take one capsule by mouth every 6 hours as needed and 1 capsule bymouth every night at bedtime meloxicam 15 mg tablet RxNorm: 520966 1 Tablet(s) PO daily 06/201409/20/2015 Inactive duloxetine 30 mg capsule,delayed release RxNorm: 111046 1 Capsule(s) PO QHS 12/23/2014 03/21/2015 Inactive duloxetine 30 mg capsule,delayed release RxNorm: 807091 1 Capsule(s) PO QHS No Start Date 12/22/2014 Inactive oxybutynin chloride ER 15 mg tablet,extended release 24 hr RxNorm: 863968 1 Tablet (s) PO daily No Start Date 01/05/2016 Inactive lysine 500 mg tablet RxNorm: 286139 1 Tablet(s) PO daily No Start Date 01/05/2016 Inactive cholecalciferol (vitamin D3) 2,000 unit capsule RxNorm: 062240 2 Capsule(s) PO daily No Start Date 09/06/2015 Inactive oxycodone-acetaminophen 5 mg-325 mg tablet RxNorm: 3374677 1to 2 Tablet(s) PO Q4H as needed No Start Date 01/05/2016 Inactive acyclovir 400 mg tablet RxNorm: 198537 1 Tablet(s) PO daily No Start Date 09/20/2015 Inactive dexlansoprazole 60 mg capsule,biphase delayed release RxNorm: 727279 1 Capsule(s) PO BID No Start Date 10/31/2016 Inactive fluoxetine 20 mg capsule RxNorm: 083107 1 Capsule(s) PO daily No Start Date 03/25/2015 Inactive gabapentin 300 mg capsule RxNorm: 014687 1 Capsule(s) PO BID No Start Date 12/22/2014 Inactive meloxicam 15 mg tablet RxNorm: 403567 1 Tablet(s) PO daily No Start Date 12/22/2014 Inactive levothyroxine 50 mcg tablet RxNorm: 374947 1 Tablet(s) PO daily No Start Date 05/18/2015 Inactive duloxetine 60 mg capsule,delayed release RxNorm: 630588 1 Capsule(s) PO QHS No Start Date 09/20/2015 Inactive estradiol 1 mg tablet RxNorm: 525149 1 Tablet(s) PO daily No Start Date 10/31/2016 Inactive multivitamin with iron tablet RxNorm: 1 Tablet(s) PO daily No Start Date 09/06/2015 Inactive Medication Administered No Medication Administered data Immunizations Vaccine Codes Date Status Influenza CVX: 141 04/30/2017 completed Influenza CVX: 141 03/25/2014 completed Tetanus, Diptheria, Pertussis CVX: 113 completed Tetanus/Diptheria CVX: 113 06/25/1997 completed Assessments Condition Codes Effective Dates Essential (primary) hypertension ICD-10: I10 ICD-9: 401.1 11/05/2017 Other chronic pain ICD-10: G89.29 ICD-9: 338.29 11/05/2017 Major depressive disorder, recurrent, moderate ICD-10: F33.1 ICD-9: 296.32 11/05/2017 Encounter for general adult medical examination without abnormal findings ICD-10: Z00.00 ICD-9: V70.0 11/05/2017 Atrophy of thyroid (acquired) ICD-10: E03.4 ICD-9: 244.8 11/05/2017 VACCIN FOR INFLUENZA ICD-10: Z23 ICD-9: V04.81 04/30/2017 Pain in left hand ICD-10: M79.642 ICD-9: 729.5 12/13/2016 Acute bronchitis due to other specified organisms ICD-10: J20.8 ICD-9: 466.0 12/13/2016 Bitten or stung by nonvenomous insect and other nonvenomous arthropods, initial encounter ICD-10: W57.XXXA ICD-9: 919.4 12/13/2016 Encounter for screening mammogram for malignant neoplasm of breast ICD-10: Z12.31 ICD-9: V76.12 11/01/2016 Dysuria ICD-10: R30.0 ICD-9: 788.1 03/07/2016 Major depressive disorder, recurrent, unspecified ICD-10: F33.9 ICD-9: 296.30 01/06/2016 Hypothyroidism, unspecified ICD-10: E03.9 ICD-9: 244.9 01/06/2016 Iliotibial band syndrome, right leg ICD-10: M76.31 ICD-9: 728.89 01/06/2016 Lateral epicondylitis, right elbow ICD-10: M77.11 ICD-9: 726.32 09/07/2015 Pain in right hip ICD-10: M25.551 ICD-9: 719.45 09/07/2015 ESOPHAGEAL REFLUX ICD-9: 530.81 2014 Chronic pain ICD-9: 338.29 12/01/2014 HYPOTHYROIDISM ICD-9: 244.9 12/01/2014 Reason For Visit Reason For Visit Effective Dates Notes hypothyroid 11/05/2017 hypothyroid 07/13/2017 vaccination against influenza 04/30/2017 hypothyroid 03/06/2017 thumb and hand pain 12/13/2016 hypothyroid 11/01/2016 hypothyroid 07/04/2016 hypothyroid 03/07/2016 hypothyroid 01/06/2016 gastroesophageal reflux 09/07/2015 gastroesophageal reflux 12/01/2014 Results Observation Observation Code Item Item Code Result Date Free T4 Cry546 FREE T4 0.68 ng/dL 11/23/2017 Tsh Ord6 TSH (3rd IS) 1.03 uIU/mL 11/23/2017 Lipid Ord30 CHOL 159 mg/dL 11/23/2017 Lipid Ord30 HDL 37.0 mg/dl 11/23/2017 Lipid Ord30 TRIG 156 mg/dL 11/23/2017 Lipid Ord30 LDL 91 mg/dL 11/23/2017 Lipid Ord30 C/HDL 4.3 Ratio 11/23/2017 Cbc With Differential Ord2 WBC 5.37 K/ul 11/23/2017 Cbc With Differential Ord2 RBC 4.40 M/ul 11/23/2017 Cbc With Differential Ord2 HGB 13.3 g/dl 11/23/2017 Cbc With Differential Ord2 Neut% 46.9 % 11/23/2017 Cbc With Differential Ord2 HCT 40.8 % 11/23/2017 Cbc With Differential Ord2 Lymph% 33.9 % 11/23/2017 Cbc With Differential Ord2 MCV 92.7 fl 11/23/2017 Cbc With Differential Ord2 MCH 30.2 pg 11/23/2017 Cbc With Differential Ord2 [place]% 15.1 % 11/23/2017 Cbc With Differential Ord2 Eos% 3.9 % 11/23/2017 Cbc With Differential Ord2 MCHC 32.6 pg 11/23/2017 Cbc With Differential Ord2 Baso% 0.2 % 11/23/2017 Cbc With Differential Ord2 PLT 248 K/ul 11/23/2017 Cbc With Differential Ord2 Neut ABS# 2.52 K/ul 11/23/2017 Cbc With Differential Ord2 RDW 13.4 % 11/23/2017 Cbc With Differential Ord2 Lymph ABS# 1.82 K/ul 11/23/2017 Cbc With Differential Ord2 [place] ABS# 0.8 K/ul 11/23/2017 Cbc With Differential Ord2 Eos ABS# 0.2 K/ul 11/23/2017 Cbc With Differential Ord2 Baso ABS# 0.0 K/ul 11/23/2017 Comp Metabolic Inq622 NA 139 mEq/L 11/23/2017 Comp Metabolic Aex276 K 4.4 mEq/L 11/23/2017 Comp Metabolic Zyk986 CL 107 mEq/L 11/23/2017 Comp Metabolic Gnv488 CO2 26.0 mEq/L 11/23/2017 Comp Metabolic Wke438 ANION GAP 10 11/23/2017 Comp Metabolic Xkz743 GLUCOSE 108 mg/dL 11/23/2017 Comp Metabolic Xsp788 Creat 0.6 mg/dL 11/23/2017 Comp Metabolic Dsc215 eGFR 118 ml/min/1.73m2 11/23/2017 Comp Metabolic Bpd014 BUN 24 mg/dL 11/23/2017 Comp Metabolic Chm482 B/C Ratio 42.9 Ratio 11/23/2017 Comp Metabolic Pru187 CALCIUM 9.0 mg/dL 11/23/2017 Comp Metabolic Nhq515 ALK PHOS 72 U/L 11/23/2017 Comp Metabolic Qeq859 AST(SGOT) 17 U/L 11/23/2017 Comp Metabolic Qsy028 ALT(SGPT) 12 U/L 11/23/2017 Comp Metabolic Etq511 BILI T 0.4 mg/dL 11/23/2017 Comp Metabolic Kox331 ALBUMIN 3.9 g/dL 11/23/2017 Comp Metabolic Pqr861 TPRO 5.9 g/dL 11/23/2017 Comp Metabolic Lbq179 GLOB 2.0 g/dL 11/23/2017 Comp Metabolic Meu588 A/G Ratio 2.0 Ratio 11/23/2017 Comp Metabolic Rpx725 Osmo 282 mOsmo 11/23/2017 Hepatitis Panel (Abc) 68502 HEPATITIS B SURFACE AG . 05/2017 Hepatitis Panel (Abc) 84444 HEPATITIS B SURFACE AG NEGATIVE 10/04/2016 Hepatitis Panel (Abc) 06719 HEPATITIS B CORE AB, IGM . Hepatitis Panel (Abc) 10367 HEPATITIS B CORE AB, IGM NEGATIVE 10/04/2016 Hepatitis Panel (Abc) 09351 HEPATITIS A AB, IGM . 2016 Hepatitis Panel (Abc) 67000 HEPATITIS A AB, IGM NEGATIVE 05/2017 Hepatitis Panel (Abc) 83807 HEPATITIS C ANTIBODY . 2016 Hepatitis Panel (Abc) 57563 HEPATITIS C ANTIBODY NEGATIVE 05/2017 Comp Metabolic Vip422 NA 137 mEq/L 03/07/2016 Comp Metabolic Fjp925 K 3.9 mEq/L 03/07/2016 Comp Metabolic Poo679 CL 103 mEq/L 03/07/2016 Comp Metabolic Vzl361 CO2 27.0 mEq/L 03/07/2016 Comp Metabolic Xvv367 ANION GAP 11 03/07/2016 Comp Metabolic Tdl408 GLUCOSE 116 mg/dL 03/07/2016 Comp Metabolic Kju944 Creat 0.7 mg/dL 03/07/2016 Comp Metabolic Baw333 eGFR 98 ml/min/1.73m2 03/07/2016 Comp Metabolic Ssf937 BUN 20 mg/dL 03/07/2016 Comp Metabolic Qlg874 B/C Ratio 30.3 Ratio 03/07/2016 Comp Metabolic Xcm655 CALCIUM 9.3 mg/dL 03/07/2016 Comp Metabolic Ryu243 ALK PHOS 87 U/L 03/07/2016 Comp Metabolic Zxg268 AST(SGOT) 14 U/L 03/07/2016 Comp Metabolic Fve023 ALT(SGPT) 10 U/L 03/07/2016 Comp Metabolic Hxz759 BILI T 0.3 mg/dL 03/07/2016 Comp Metabolic Yxr182 ALBUMIN 4.3 g/dL 03/07/2016 Comp Metabolic Cjh754 TPRO 6.4 g/dL 03/07/2016 Comp Metabolic Uch872 GLOB 2.1 g/dL 03/07/2016 Comp Metabolic Dva724 A/G Ratio 2.0 Ratio 03/07/2016 Comp Metabolic Tgn349 Osmo 277 mOsmo 03/07/2016 Cbc With Differential Ord2 WBC 8.35 K/ul 03/07/2016 Cbc With Differential Ord2 RBC 4.39 M/ul 03/07/2016 Cbc With Differential Ord2 HGB 13.1 g/dl 03/07/2016 Cbc With Differential Ord2 HCT 40.1 % 03/07/2016 Cbc With Differential Ord2 Neut% 54.3 % 03/07/2016 Cbc With Differential Ord2 MCV 91.3 fl 03/07/2016 Cbc With Differential Ord2 Lymph% 33.2 % 03/07/2016 Cbc With Differential Ord2 MCH 29.8 pg 03/07/2016 Cbc With Differential Ord2 [place]% 9.5 % 03/07/2016 Cbc With Differential Ord2 MCHC 32.7 pg 03/07/2016 Cbc With Differential Ord2 Eos% 2.6 % 03/07/2016 Cbc With Differential Ord2 Baso% 0.4 % 03/07/2016 Cbc With Differential Ord2 PLT 270 K/ul 03/07/2016 Cbc With Differential Ord2 RDW 13.6 % 03/07/2016 Cbc With Differential Ord2 Neut ABS# 4.54 K/ul 03/07/2016 Cbc With Differential Ord2 Lymph ABS# 2.77 K/ul 03/07/2016 Cbc With Differential Ord2 [place] ABS# 0.8 K/ul 03/07/2016 Cbc With Differential Ord2 Eos ABS# 0.2 K/ul 03/07/2016 Cbc With Differential Ord2 Baso ABS# 0.0 K/ul 03/07/2016 Tsh Ord6 hTSH II 0.93 uIU/mL 03/07/2016 T4 Ord4 T4 6.0 ug/dL 03/07/2016 Free T4 Qbo744 FREE T4 0.65 ng/dL 08/27/2015 Comp Metabolic Fel476 NA 137 mEq/L 08/27/2015 Comp Metabolic Nqg501 K 4.5 mEq/L 08/27/2015 Comp Metabolic Icr812 CL 104 mEq/L 08/27/2015 Comp Metabolic Mqx032 CO2 26.0 mEq/L 08/27/2015 Comp Metabolic Wkj740 ANION GAP 12 08/27/2015 Comp Metabolic Flv191 GLUCOSE 101 mg/dL 08/27/2015 Comp Metabolic Swh682 Creat 0.5 mg/dL 08/27/2015 Comp Metabolic Ajv872 eGFR 124 ml/min/1.73m2 08/27/2015 Comp Metabolic Rya313 BUN 16 mg/dL 08/27/2015 Comp Metabolic Nhd893 B/C Ratio 29.6 Ratio 08/27/2015 Comp Metabolic Enx403 CALCIUM 9.1 mg/dL 08/27/2015 Comp Metabolic Rpx543 ALK PHOS 79 U/L 08/27/2015 Comp Metabolic Jvc469 AST(SGOT) 15 U/L 08/27/2015 Comp Metabolic Hdy229 ALT(SGPT) 12 U/L 08/27/2015 Comp Metabolic Xoq126 BILI T 0.7 mg/dL 08/27/2015 Comp Metabolic Pul467 ALBUMIN 4.2 g/dL 08/27/2015 Comp Metabolic Dru312 TPRO 6.3 g/dL 08/27/2015 Comp Metabolic Fpq757 GLOB 2.1 g/dL 08/27/2015 Comp Metabolic Znc387 A/G Ratio 2.0 Ratio 08/27/2015 Comp Metabolic Wfd210 Osmo 275 mOsmo 08/27/2015 Lipid Ord30 CHOL 259 mg/dL 08/27/2015 Lipid Ord30 HDL 50.0 mg/dl 08/27/2015 Lipid Ord30 TRIG 154 mg/dL 08/27/2015 Lipid Ord30 LDL 178 mg/dL 08/27/2015 Lipid Ord30 C/HDL 5.2 Ratio 08/27/2015 Cbc With Differential Ord2 WBC 6.02 K/ul 08/27/2015 Cbc With Differential Ord2 RBC 4.76 M/ul 08/27/2015 Cbc With Differential Ord2 HGB 14.0 g/dl 08/27/2015 Cbc With Differential Ord2 HCT 43.3 % 08/27/2015 Cbc With Differential Ord2 Neut% 55.1 % 08/27/2015 Cbc With Differential Ord2 MCV 91.0 fl 08/27/2015 Cbc With Differential Ord2 Lymph% 29.1 % 08/27/2015 Cbc With Differential Ord2 [place]% 12.5 % 08/27/2015 Cbc With Differential Ord2 MCH 29.4 pg 08/27/2015 Cbc With Differential Ord2 MCHC 32.3 pg 08/27/2015 Cbc With Differential Ord2 Eos% 3.0 % 08/27/2015 Cbc With Differential Ord2 Baso% 0.3 % 08/27/2015 Cbc With Differential Ord2 PLT 279 K/ul 08/27/2015 Cbc With Differential Ord2 Neut ABS# 3.32 K/ul 08/27/2015 Cbc With Differential Ord2 RDW 13.7 % 08/27/2015 Cbc With Differential Ord2 Lymph ABS# 1.75 K/ul 08/27/2015 Cbc With Differential Ord2 [place] ABS# 0.8 K/ul 08/27/2015 Cbc With Differential Ord2 Eos ABS# 0.2 K/ul 08/27/2015 Cbc With Differential Ord2 Baso ABS# 0.0 K/ul 08/27/2015 Cbc With Differential Ord2 New Analyzer Notice Please note new ref ranges starting 07-07-2015 due to implemntation of new five part differential hematolgy analyzer. 08/27/2015 Tsh Ord6 hTSH II 0.39 uIU/mL 08/27/2015 Culture Urine [id number] URINE CULTURE SEE NOTES 08/06/2015 Culture Urine [id number] Continued Results 08/06/2015 Urine Culture Ucult Complete >100,000 col/ml aerobic growth sent to ref lab 08/04/2015 Review of Systems System Result Effective Dates Constitutional recent illness 11/05/2017 Constitutional No chills 11/05/2017 Constitutional fatigue 11/05/2017 Constitutional No fever 11/05/2017 Constitutional No insomnia 11/05/2017 Constitutional No malaise 11/05/2017 Eyes No blindness 11/05/2017 Eyes No vision change 11/05/2017 Ears/Nose/Throat/Neck No dental pain Ears/Nose/Throat/Neck No dizziness 2017 Ears/Nose/Throat/Neck No dysphagia 2017 Ears/Nose/Throat/Neck No headache 2017 Ears/Nose/Throat/Neck No hearing loss Ears/Nose/Throat/Neck No nasal allergies 11/05/2017 Ears/Nose/Throat/Neck No sore throat Ears/Nose/Throat/Neck No postnasal drip 11/05/2017 Ears/Nose/Throat/Neck No sinus congestion 11/05/2017 Cardiovascular No chest pain/pressure Cardiovascular No dyspnea 11/05/2017 Cardiovascular No edema 11/05/2017 Cardiovascular No exercise intolerance Cardiovascular No fatigue 11/05/2017 Cardiovascular No near-syncope/dizziness 11/05/2017 Respiratory No chest tightness 2017 Respiratory No cough 11/05/2017 Respiratory No dyspnea 11/05/2017 Respiratory No pedal edema 11/05/2017 Gastrointestinal No abdominal pain 2017 Gastrointestinal No constipation 2017 Gastrointestinal No diarrhea 11/05/2017 Gastrointestinal No gastroesophageal reflux 11/05/2017 Gastrointestinal No nausea 11/05/2017 Gastrointestinal No vomiting 11/05/2017 Genitourinary/Nephrology No dysuria 11/05 Genitourinary/Nephrology No nocturia Genitourinary/Nephrology No urinary incontinence 11/05/2017 Musculoskeletal stiffness 11/05/2017 Musculoskeletal arthralgia(s) 11/05/2017 Musculoskeletal bone pain 11/05/2017 Musculoskeletal No muscle weakness 2017 Musculoskeletal No myalgias 11/05/2017 Dermatologic No rash 11/05/2017 Dermatologic No sores 11/05/2017 Neurologic No dizziness 11/05/2017 Neurologic No headache 11/05/2017 Neurologic No neck pain 11/05/2017 Neurologic No syncope 11/05/2017 Psychiatric anxiety 11/05/2017 Psychiatric depression 11/05/2017 Psychiatric disturbances of emotion 11/05 Constitutional No chills 07/13/2017 Constitutional fatigue 07/13/2017 Constitutional No fever 07/13/2017 Constitutional No insomnia 07/13/2017 Constitutional No malaise 07/13/2017 Eyes No blindness 07/13/2017 Eyes No vision change 07/13/2017 Ears/Nose/Throat/Neck No dental pain Ears/Nose/Throat/Neck No dizziness 2017 Ears/Nose/Throat/Neck No dysphagia 2017 Ears/Nose/Throat/Neck No headache 2017 Ears/Nose/Throat/Neck No hearing loss Ears/Nose/Throat/Neck No nasal allergies 07/13/2017 Ears/Nose/Throat/Neck No sore throat Ears/Nose/Throat/Neck No postnasal drip 07/13/2017 Ears/Nose/Throat/Neck No sinus congestion 07/13/2017 Cardiovascular No chest pain/pressure Cardiovascular No dyspnea 07/13/2017 Cardiovascular No edema 07/13/2017 Cardiovascular No exercise intolerance Cardiovascular No fatigue 07/13/2017 Cardiovascular No near-syncope/dizziness 07/13/2017 Respiratory No chest tightness 2017 Respiratory No cough 07/13/2017 Respiratory No dyspnea 07/13/2017 Respiratory No pedal edema 07/13/2017 Gastrointestinal No abdominal pain 2017 Gastrointestinal No constipation 2017 Gastrointestinal No diarrhea 07/13/2017 Gastrointestinal No gastroesophageal reflux 07/13/2017 Gastrointestinal No nausea 07/13/2017 Gastrointestinal No vomiting 07/13/2017 Genitourinary/Nephrology No dysuria 07/13 Genitourinary/Nephrology No nocturia Genitourinary/Nephrology No urinary incontinence 07/13/2017 Musculoskeletal stiffness 07/13/2017 Musculoskeletal arthralgia(s) 07/13/2017 Musculoskeletal No muscle weakness 2017 Musculoskeletal No myalgias 07/13/2017 Dermatologic No rash 07/13/2017 Dermatologic No sores 07/13/2017 Neurologic No dizziness 07/13/2017 Neurologic No headache 07/13/2017 Neurologic No neck pain 07/13/2017 Neurologic No syncope 07/13/2017 Psychiatric anxiety 07/13/2017 Psychiatric depression 07/13/2017 Psychiatric disturbances of emotion 07/13 Musculoskeletal bone pain 07/13/2017 Constitutional recent illness 07/13/2017 Constitutional recent illness 03/06/2017 Constitutional No chills 03/06/2017 Constitutional No fatigue 03/06/2017 Constitutional No fever 03/06/2017 Constitutional No insomnia 03/06/2017 Constitutional No malaise 03/06/2017 Eyes No blindness 03/06/2017 Eyes No vision change 03/06/2017 Ears/Nose/Throat/Neck No dental pain 05/2017 Ears/Nose/Throat/Neck No dizziness 2016 Ears/Nose/Throat/Neck No dysphagia 2016 Ears/Nose/Throat/Neck No headache 2016 Ears/Nose/Throat/Neck No hearing loss 05/2017 Ears/Nose/Throat/Neck No nasal allergies 03/06/2017 Ears/Nose/Throat/Neck No sore throat 05/2017 Ears/Nose/Throat/Neck No postnasal drip 03/06/2017 Ears/Nose/Throat/Neck No sinus congestion 03/06/2017 Cardiovascular No chest pain/pressure 05/2017 Cardiovascular No dyspnea 03/06/2017 Cardiovascular No edema 03/06/2017 Cardiovascular No exercise intolerance Cardiovascular No fatigue 03/06/2017 Cardiovascular No near-syncope/dizziness 03/06/2017 Respiratory No chest tightness 2016 Respiratory No cough 03/06/2017 Respiratory No dyspnea 03/06/2017 Respiratory No pedal edema 03/06/2017 Gastrointestinal No abdominal pain 2016 Gastrointestinal No constipation 2016 Gastrointestinal No diarrhea 03/06/2017 Gastrointestinal No gastroesophageal reflux 03/06/2017 Gastrointestinal No nausea 03/06/2017 Gastrointestinal No vomiting 03/06/2017 Genitourinary/Nephrology No dysuria 03/06 Genitourinary/Nephrology No nocturia 05/2017 Genitourinary/Nephrology No urinary incontinence 03/06/2017 Musculoskeletal stiffness 03/06/2017 Musculoskeletal swelling 03/06/2017 Musculoskeletal arthralgia(s) 03/06/2017 Musculoskeletal No muscle weakness 2016 Musculoskeletal No myalgias 03/06/2017 Dermatologic No rash 03/06/2017 Dermatologic No sores 03/06/2017 Neurologic No dizziness 03/06/2017 Neurologic No headache 03/06/2017 Neurologic No neck pain 03/06/2017 Neurologic No syncope 03/06/2017 Psychiatric anxiety 03/06/2017 Psychiatric depression 03/06/2017 Psychiatric disturbances of emotion 03/06 Constitutional recent illness 12/13/2016 Constitutional No chills 12/13/2016 Constitutional No diaphoresis 12/13/2016 Constitutional No fever 12/13/2016 Eyes No eye erythema 12/13/2016 Ears/Nose/Throat/Neck No nasal discharge 12/13/2016 Ears/Nose/Throat/Neck nasal allergies Cardiovascular No chest pain/pressure Respiratory cough 12/13/2016 Respiratory chest congestion 12/13/2016 Respiratory No dyspnea 12/13/2016 Respiratory productive sputum 12/13/2016 Gastrointestinal No abdominal pain 2016 Musculoskeletal joint complaint 2016 Dermatologic No rash 12/13/2016 Neurologic No alteration of consciousness 12/13/2016 Neurologic No mental status change 2016 Constitutional recent illness 11/01/2016 Constitutional No chills 11/01/2016 Constitutional No fatigue 11/01/2016 Constitutional No fever 11/01/2016 Constitutional No insomnia 11/01/2016 Constitutional No malaise 11/01/2016 Eyes No blindness 11/01/2016 Eyes No vision change 11/01/2016 Ears/Nose/Throat/Neck No dental pain 03/2017 Ears/Nose/Throat/Neck No dizziness 2016 Ears/Nose/Throat/Neck No dysphagia 2016 Ears/Nose/Throat/Neck No headache 2016 Ears/Nose/Throat/Neck No hearing loss 03/2017 Ears/Nose/Throat/Neck No nasal allergies 11/01/2016 Ears/Nose/Throat/Neck No sore throat 03/2017 Ears/Nose/Throat/Neck No postnasal drip 11/01/2016 Ears/Nose/Throat/Neck No sinus congestion 11/01/2016 Cardiovascular No chest pain/pressure 03/2017 Cardiovascular No dyspnea 11/01/2016 Cardiovascular No edema 11/01/2016 Cardiovascular No exercise intolerance Cardiovascular No fatigue 11/01/2016 Cardiovascular No near-syncope/dizziness 11/01/2016 Respiratory No chest tightness 2016 Respiratory No cough 11/01/2016 Respiratory No dyspnea 11/01/2016 Respiratory No pedal edema 11/01/2016 Gastrointestinal No abdominal pain 2016 Gastrointestinal No constipation 2016 Gastrointestinal No diarrhea 11/01/2016 Gastrointestinal No gastroesophageal reflux 11/01/2016 Gastrointestinal No nausea 11/01/2016 Gastrointestinal No vomiting 11/01/2016 Genitourinary/Nephrology No dysuria 11/01 Genitourinary/Nephrology No nocturia 03/2017 Genitourinary/Nephrology No urinary incontinence 11/01/2016 Musculoskeletal stiffness 11/01/2016 Musculoskeletal swelling 11/01/2016 Musculoskeletal arthralgia(s) 11/01/2016 Musculoskeletal No muscle weakness 2016 Musculoskeletal No myalgias 11/01/2016 Dermatologic No rash 11/01/2016 Dermatologic No sores 11/01/2016 Neurologic No dizziness 11/01/2016 Neurologic No headache 11/01/2016 Neurologic No neck pain 11/01/2016 Neurologic No syncope 11/01/2016 Psychiatric anxiety 11/01/2016 Psychiatric depression 11/01/2016 Constitutional recent illness 07/04/2016 Constitutional No chills 07/04/2016 Constitutional No fatigue 07/04/2016 Constitutional No fever 07/04/2016 Constitutional No insomnia 07/04/2016 Constitutional No malaise 07/04/2016 Eyes No blindness 07/04/2016 Eyes No vision change 07/04/2016 Ears/Nose/Throat/Neck No dental pain 03/2017 Ears/Nose/Throat/Neck No dizziness 2016 Ears/Nose/Throat/Neck No dysphagia 2016 Ears/Nose/Throat/Neck No headache 2016 Ears/Nose/Throat/Neck No hearing loss 03/2017 Ears/Nose/Throat/Neck No nasal allergies 07/04/2016 Ears/Nose/Throat/Neck No sore throat 03/2017 Ears/Nose/Throat/Neck No postnasal drip 07/04/2016 Ears/Nose/Throat/Neck No sinus congestion 07/04/2016 Cardiovascular No chest pain/pressure 03/2017 Cardiovascular No dyspnea 07/04/2016 Cardiovascular No edema 07/04/2016 Cardiovascular No exercise intolerance Cardiovascular No fatigue 07/04/2016 Cardiovascular No near-syncope/dizziness 07/04/2016 Respiratory No chest tightness 2016 Respiratory No cough 07/04/2016 Respiratory No dyspnea 07/04/2016 Respiratory No pedal edema 07/04/2016 Gastrointestinal No abdominal pain 2016 Gastrointestinal No constipation 2016 Gastrointestinal No diarrhea 07/04/2016 Gastrointestinal No gastroesophageal reflux 07/04/2016 Gastrointestinal No nausea 07/04/2016 Gastrointestinal No vomiting 07/04/2016 Genitourinary/Nephrology No dysuria 07/04 Genitourinary/Nephrology No nocturia 03/2017 Genitourinary/Nephrology No urinary incontinence 07/04/2016 Musculoskeletal stiffness 07/04/2016 Musculoskeletal swelling 07/04/2016 Musculoskeletal arthralgia(s) 07/04/2016 Musculoskeletal No muscle weakness 2016 Musculoskeletal No myalgias 07/04/2016 Dermatologic No rash 07/04/2016 Dermatologic No sores 07/04/2016 Neurologic No dizziness 07/04/2016 Neurologic No headache 07/04/2016 Neurologic No neck pain 07/04/2016 Neurologic No syncope 07/04/2016 Psychiatric anxiety 07/04/2016 Psychiatric depression 07/04/2016 Constitutional recent illness 03/07/2016 Constitutional No chills 03/07/2016 Constitutional No fatigue 03/07/2016 Constitutional No fever 03/07/2016 Constitutional No insomnia 03/07/2016 Constitutional No malaise 03/07/2016 Ears/Nose/Throat/Neck No dysphagia 2015 Ears/Nose/Throat/Neck No headache 2015 Ears/Nose/Throat/Neck No nasal allergies 03/07/2016 Ears/Nose/Throat/Neck No sore throat Cardiovascular No chest pain/pressure Cardiovascular No dyspnea 03/07/2016 Cardiovascular No edema 03/07/2016 Cardiovascular No exercise intolerance Cardiovascular No fatigue 03/07/2016 Cardiovascular No near-syncope/dizziness 03/07/2016 Respiratory No chest tightness 2015 Respiratory No cough 03/07/2016 Respiratory No dyspnea 03/07/2016 Respiratory No pedal edema 03/07/2016 Gastrointestinal No abdominal pain 2015 Gastrointestinal No constipation 2015 Gastrointestinal No diarrhea 03/07/2016 Gastrointestinal No gastroesophageal reflux 03/07/2016 Gastrointestinal No nausea 03/07/2016 Gastrointestinal No vomiting 03/07/2016 Genitourinary/Nephrology No dysuria 03/07 Genitourinary/Nephrology No nocturia Genitourinary/Nephrology No urinary incontinence 03/07/2016 Musculoskeletal stiffness 03/07/2016 Musculoskeletal arthralgia(s) 03/07/2016 Musculoskeletal No myalgias 03/07/2016 Psychiatric anxiety 03/07/2016 Psychiatric depression 03/07/2016 Constitutional recent illness 01/06/2016 Constitutional No chills 01/06/2016 Constitutional No fatigue 01/06/2016 Constitutional No fever 01/06/2016 Constitutional No insomnia 01/06/2016 Constitutional No malaise 01/06/2016 Eyes No blindness 01/06/2016 Eyes No vision change 01/06/2016 Ears/Nose/Throat/Neck No dental pain Ears/Nose/Throat/Neck No dizziness 2015 Ears/Nose/Throat/Neck No dysphagia 2015 Ears/Nose/Throat/Neck No headache 2015 Ears/Nose/Throat/Neck No hearing loss Ears/Nose/Throat/Neck No nasal allergies 01/06/2016 Ears/Nose/Throat/Neck No sore throat Ears/Nose/Throat/Neck No postnasal drip 01/06/2016 Ears/Nose/Throat/Neck No sinus congestion 01/06/2016 Cardiovascular No chest pain/pressure Cardiovascular No dyspnea 01/06/2016 Cardiovascular No edema 01/06/2016 Cardiovascular No exercise intolerance Cardiovascular No fatigue 01/06/2016 Cardiovascular No near-syncope/dizziness 01/06/2016 Respiratory No chest tightness 2015 Respiratory No cough 01/06/2016 Respiratory No dyspnea 01/06/2016 Respiratory No pedal edema 01/06/2016 Gastrointestinal No abdominal pain 2015 Gastrointestinal No constipation 2015 Gastrointestinal No diarrhea 01/06/2016 Gastrointestinal No gastroesophageal reflux 01/06/2016 Gastrointestinal No nausea 01/06/2016 Gastrointestinal No vomiting 01/06/2016 Genitourinary/Nephrology No dysuria 01/05 Genitourinary/Nephrology No nocturia Genitourinary/Nephrology No urinary incontinence 01/06/2016 Musculoskeletal stiffness 01/06/2016 Musculoskeletal swelling 01/06/2016 Musculoskeletal arthralgia(s) 01/06/2016 Musculoskeletal No muscle weakness 2015 Musculoskeletal No myalgias 01/06/2016 Dermatologic No rash 01/06/2016 Dermatologic No sores 01/06/2016 Neurologic No dizziness 01/06/2016 Neurologic No headache 01/06/2016 Neurologic No neck pain 01/06/2016 Neurologic No syncope 01/06/2016 Psychiatric anxiety 01/06/2016 Psychiatric depression 01/06/2016 Constitutional recent illness 09/07/2015 Constitutional No chills 09/07/2015 Constitutional No fatigue 09/07/2015 Constitutional No fever 09/07/2015 Constitutional No insomnia 09/07/2015 Constitutional No malaise 09/07/2015 Eyes No blindness 09/07/2015 Eyes No vision change 09/07/2015 Ears/Nose/Throat/Neck No dental pain Ears/Nose/Throat/Neck No dizziness 2015 Ears/Nose/Throat/Neck No dysphagia 2015 Ears/Nose/Throat/Neck No headache 2015 Ears/Nose/Throat/Neck No hearing loss Ears/Nose/Throat/Neck No nasal allergies 09/07/2015 Ears/Nose/Throat/Neck No sore throat Ears/Nose/Throat/Neck No postnasal drip 09/07/2015 Ears/Nose/Throat/Neck No sinus congestion 09/07/2015 Cardiovascular No chest pain/pressure Cardiovascular No dyspnea 09/07/2015 Cardiovascular No edema 09/07/2015 Cardiovascular No exercise intolerance Cardiovascular No fatigue 09/07/2015 Cardiovascular No near-syncope/dizziness 09/07/2015 Respiratory No chest tightness 2015 Respiratory No cough 09/07/2015 Respiratory No dyspnea 09/07/2015 Respiratory No pedal edema 09/07/2015 Gastrointestinal No abdominal pain 2015 Gastrointestinal No constipation 2015 Gastrointestinal No diarrhea 09/07/2015 Gastrointestinal No gastroesophageal reflux 09/07/2015 Gastrointestinal No nausea 09/07/2015 Gastrointestinal No vomiting 09/07/2015 Genitourinary/Nephrology No dysuria 09/06 Genitourinary/Nephrology No nocturia Genitourinary/Nephrology No urinary incontinence 09/07/2015 Musculoskeletal stiffness 09/07/2015 Musculoskeletal swelling 09/07/2015 Musculoskeletal No muscle weakness 2015 Musculoskeletal No myalgias 09/07/2015 Dermatologic No rash 09/07/2015 Dermatologic No sores 09/07/2015 Neurologic No dizziness 09/07/2015 Neurologic No headache 09/07/2015 Neurologic No neck pain 09/07/2015 Neurologic No syncope 09/07/2015 Psychiatric anxiety 09/07/2015 Psychiatric depression 09/07/2015 Musculoskeletal arthralgia(s) 09/07/2015 Constitutional recent illness 12/01/2014 Constitutional No chills 12/01/2014 Constitutional No fatigue 12/01/2014 Constitutional No fever 12/01/2014 Constitutional No insomnia 12/01/2014 Constitutional No malaise 12/01/2014 Eyes No blindness 12/01/2014 Eyes No vision change 12/01/2014 Ears/Nose/Throat/Neck No dental pain 02/2015 Ears/Nose/Throat/Neck No dizziness 2014 Ears/Nose/Throat/Neck No dysphagia 2014 Ears/Nose/Throat/Neck No headache 2014 Ears/Nose/Throat/Neck No hearing loss 02/2015 Ears/Nose/Throat/Neck No nasal allergies 12/01/2014 Ears/Nose/Throat/Neck No sore throat 02/2015 Ears/Nose/Throat/Neck No postnasal drip 12/01/2014 Ears/Nose/Throat/Neck No sinus congestion 12/01/2014 Cardiovascular No chest pain/pressure 02/2015 Cardiovascular No dyspnea 12/01/2014 Cardiovascular No edema 12/01/2014 Cardiovascular No exercise intolerance Cardiovascular No fatigue 12/01/2014 Cardiovascular No near-syncope/dizziness 12/01/2014 Respiratory No chest tightness 2014 Respiratory No cough 12/01/2014 Respiratory No dyspnea 12/01/2014 Respiratory No pedal edema 12/01/2014 Gastrointestinal No abdominal pain 2014 Gastrointestinal No constipation 2014 Gastrointestinal No diarrhea 12/01/2014 Gastrointestinal No gastroesophageal reflux 12/01/2014 Gastrointestinal No nausea 12/01/2014 Gastrointestinal No vomiting 12/01/2014 Genitourinary/Nephrology No dysuria 12/01 Genitourinary/Nephrology No nocturia 02/2015 Genitourinary/Nephrology No urinary incontinence 12/01/2014 Musculoskeletal No stiffness 12/01/2014 Musculoskeletal No swelling 12/01/2014 Musculoskeletal No muscle weakness 2014 Musculoskeletal No myalgias 12/01/2014 Dermatologic No rash 12/01/2014 Dermatologic No sores 12/01/2014 Dermatologic No scar 12/01/2014 Neurologic No dizziness 12/01/2014 Neurologic No headache 12/01/2014 Neurologic No neck pain 12/01/2014 Neurologic No syncope 12/01/2014 Psychiatric anxiety 12/01/2014 Psychiatric depression 12/01/2014 Physical Exam Exam Name System Name Item Name Status Result Effective Dates Notes Full Exam - General 1994 Constitutional general appearance Development: well developed 11/05/2017 None Full Exam - General 1994 Constitutional general appearance Development: appears stated age 0511/05/2017 None Full Exam - General 1994 Constitutional general appearance Hygiene/Attention to Grooming: good hygiene 11/05/2017 None Full Exam - General 1994 Eyes conjunctiva /eyelids Overall: conjunctiva clear 11/05/2017 None Full Exam - General 1994 Eyes conjunctiva /eyelids Overall: cornea clear 11/05/2017 None Full Exam - General 1994 Eyes conjunctiva /eyelids Overall: eyelids normal 11/05/2017 None Full Exam - General 1994 Eyes pupils and irises Overall: pupils equal, round, reactive to light and accomodation 11/05/2017 None Full Exam - General 1994 Ears/Nose/Throat otoscopic exam Overall: external auditory canals clear 11/05/2017 None Full Exam - General 1994 Ears/Nose/Throat otoscopic exam Overall: tympanic membranes clear 11/05/2017 None Full Exam - General 1994 Ears/Nose/Throat lips/teeth/gingiva Overall: benign lips 11/05/2017 None Full Exam - General 1994 Ears/Nose/Throat lips/teeth/gingiva Overall: normal dentition 11/05/2017 None Full Exam - General 1994 Ears/Nose/Throat oral cavity/pharynx/larynx Overall: oral mucosa clear 11/05/2017 None Full Exam - General 1994 Ears/Nose/Throat oral cavity/pharynx/larynx Overall: oropharyngeal mucosa clear 11/05/2017 None Full Exam - General 1994 Ears/Nose/Throat oral cavity/pharynx/larynx Overall: hypopharynx benign 11/05/2017 None Full Exam - General 1994 Ears/Nose/Throat oral cavity/pharynx/larynx Overall: no masses 11/05/2017 None Full Exam - General 1994 Respiratory auscultation Overall: breath sounds clear bilaterally 11/05/2017 None Full Exam - General 1994 Respiratory respiratory effort/rhythm Overall: no retractions 11/05/2017 None Full Exam - General 1994 Respiratory respiratory effort/rhythm Overall: normal rate 11/05/2017 None Full Exam - General 1994 Cardiovascular extremities Overall: no clubbing 11/05/2017 None Full Exam - General 1994 Cardiovascular auscultation of heart Overall: regular rate 11/05/2017 None Full Exam - General 1994 Cardiovascular auscultation of heart Overall: normal heart sounds 11/05/2017 None Full Exam - General 1994 Abdomen abdominal exam Overall: no tenderness 11/05/2017 None Full Exam - General 1994 Abdomen abdominal exam Overall: normal bowel sounds 11/05/2017 None Full Exam - General 1994 Lymphatic neck nodes Overall: anterior cervical chain benign 11/05/2017 None Full Exam - General 1994 Musculoskeletal digits and nails DIPs: fifth 11/05/2017 None Full Exam - General 1994 Musculoskeletal lower extremity Palpation - thigh: tenderness 11/05/2017 right greater trochanteric bursal inflammation Full Exam - General 1994 Musculoskeletal spine, ribs and pelvis Overall: spine benign 11/05/2017 None Full Exam - General 1994 Musculoskeletal spine, ribs and pelvis Overall: sacroiliac joint benign 11/05/2017 None Full Exam - General 1994 Musculoskeletal spine, ribs and pelvis Overall: good posture 11/05/2017 None Full Exam - General 1994 Musculoskeletal head and neck Overall: head atraumatic 11/05/2017 None Full Exam - General 1994 Musculoskeletal head and neck Overall: cervical spine benign 11/05/2017 None Full Exam - General 1994 Neurologic deep tendon reflexes Overall: deep tendon reflexes intact 11/05/2017 None Full Exam - General 1994 Neurologic cranial nerves Overall: crainial nerves 2 - 12 grossly intact 11/05/2017 None Full Exam - General 1994 Psychiatric orientation/consciousness Overall: oriented to person, place and time 11/05/2017 None Full Exam - General 1994 Psychiatric mood and affect Overall: normal mood and affect 11/05/2017 None Full Exam - General 1994 Constitutional general appearance Development: well developed 07/13/2017 None Full Exam - General 1994 Constitutional general appearance Development: appears stated age 0107/13/2017 None Full Exam - General 1994 Constitutional general appearance Hygiene/Attention to Grooming: good hygiene 07/13/2017 None Full Exam - General 1994 Eyes conjunctiva /eyelids Overall: conjunctiva clear 07/13/2017 None Full Exam - General 1994 Eyes conjunctiva /eyelids Overall: cornea clear 07/13/2017 None Full Exam - General 1994 Eyes conjunctiva /eyelids Overall: eyelids normal 07/13/2017 None Full Exam - General 1994 Eyes pupils and irises Overall: pupils equal, round, reactive to light and accomodation 07/13/2017 None Full Exam - General 1994 Ears/Nose/Throat otoscopic exam Overall: external auditory canals clear 07/13/2017 None Full Exam - General 1994 Ears/Nose/Throat otoscopic exam Overall: tympanic membranes clear 07/13/2017 None Full Exam - General 1994 Ears/Nose/Throat lips/teeth/gingiva Overall: benign lips 07/13/2017 None Full Exam - General 1994 Ears/Nose/Throat lips/teeth/gingiva Overall: normal dentition 07/13/2017 None Full Exam - General 1994 Ears/Nose/Throat oral cavity/pharynx/larynx Overall: oral mucosa clear 07/13/2017 None Full Exam - General 1994 Ears/Nose/Throat oral cavity/pharynx/larynx Overall: oropharyngeal mucosa clear 07/13/2017 None Full Exam - General 1994 Ears/Nose/Throat oral cavity/pharynx/larynx Overall: hypopharynx benign 07/13/2017 None Full Exam - General 1994 Ears/Nose/Throat oral cavity/pharynx/larynx Overall: no masses 07/13/2017 None Full Exam - General 1994 Respiratory auscultation Overall: breath sounds clear bilaterally 07/13/2017 None Full Exam - General 1994 Respiratory respiratory effort/rhythm Overall: no retractions 07/13/2017 None Full Exam - General 1994 Respiratory respiratory effort/rhythm Overall: normal rate 07/13/2017 None Full Exam - General 1994 Cardiovascular extremities Overall: no clubbing 07/13/2017 None Full Exam - General 1994 Cardiovascular auscultation of heart Overall: regular rate 07/13/2017 None Full Exam - General 1994 Cardiovascular auscultation of heart Overall: normal heart sounds 07/13/2017 None Full Exam - General 1994 Abdomen abdominal exam Overall: no tenderness 07/13/2017 None Full Exam - General 1994 Abdomen abdominal exam Overall: normal bowel sounds 07/13/2017 None Full Exam - General 1994 Lymphatic neck nodes Overall: anterior cervical chain benign 07/13/2017 None Full Exam - General 1994 Musculoskeletal digits and nails DIPs: fifth 07/13/2017 None Full Exam - General 1994 Musculoskeletal lower extremity Palpation - thigh: tenderness 07/13/2017 right greater trochanteric bursal inflammation Full Exam - General 1994 Musculoskeletal spine, ribs and pelvis Overall: spine benign 07/13/2017 None Full Exam - General 1994 Musculoskeletal spine, ribs and pelvis Overall: sacroiliac joint benign 07/13/2017 None Full Exam - General 1994 Musculoskeletal spine, ribs and pelvis Overall: good posture 07/13/2017 None Full Exam - General 1994 Musculoskeletal head and neck Overall: head atraumatic 07/13/2017 None Full Exam - General 1994 Musculoskeletal head and neck Overall: cervical spine benign 07/13/2017 None Full Exam - General 1994 Neurologic deep tendon reflexes Overall: deep tendon reflexes intact 07/13/2017 None Full Exam - General 1994 Neurologic cranial nerves Overall: crainial nerves 2 - 12 grossly intact 07/13/2017 None Full Exam - General 1994 Psychiatric orientation/consciousness Overall: oriented to person, place and time 07/13/2017 None Full Exam - General 1994 Psychiatric mood and affect Overall: normal mood and affect 07/13/2017 None Full Exam - General 1994 Constitutional general appearance Development: well developed 03/06/2017 None Full Exam - General 1994 Constitutional general appearance Development: appears stated age 0903/06/2017 None Full Exam - General 1994 Constitutional general appearance Hygiene/Attention to Grooming: good hygiene 03/06/2017 None Full Exam - General 1994 Eyes conjunctiva /eyelids Overall: conjunctiva clear 03/06/2017 None Full Exam - General 1994 Eyes conjunctiva /eyelids Overall: cornea clear 03/06/2017 None Full Exam - General 1994 Eyes conjunctiva /eyelids Overall: eyelids normal 03/06/2017 None Full Exam - General 1994 Eyes pupils and irises Overall: pupils equal, round, reactive to light and accomodation 03/06/2017 None Full Exam - General 1994 Ears/Nose/Throat otoscopic exam Overall: external auditory canals clear 03/06/2017 None Full Exam - General 1994 Ears/Nose/Throat otoscopic exam Overall: tympanic membranes clear 03/06/2017 None Full Exam - General 1994 Ears/Nose/Throat lips/teeth/gingiva Overall: benign lips 03/06/2017 None Full Exam - General 1994 Ears/Nose/Throat lips/teeth/gingiva Overall: normal dentition 03/06/2017 None Full Exam - General 1994 Ears/Nose/Throat oral cavity/pharynx/larynx Overall: oral mucosa clear 03/06/2017 None Full Exam - General 1994 Ears/Nose/Throat oral cavity/pharynx/larynx Overall: oropharyngeal mucosa clear 03/06/2017 None Full Exam - General 1994 Ears/Nose/Throat oral cavity/pharynx/larynx Overall: hypopharynx benign 03/06/2017 None Full Exam - General 1994 Ears/Nose/Throat oral cavity/pharynx/larynx Overall: no masses 03/06/2017 None Full Exam - General 1994 Respiratory auscultation Overall: breath sounds clear bilaterally 03/06/2017 None Full Exam - General 1994 Respiratory respiratory effort/rhythm Overall: no retractions 03/06/2017 None Full Exam - General 1994 Respiratory respiratory effort/rhythm Overall: normal rate 03/06/2017 None Full Exam - General 1994 Cardiovascular extremities Overall: no clubbing 03/06/2017 None Full Exam - General 1994 Cardiovascular auscultation of heart Overall: regular rate 03/06/2017 None Full Exam - General 1994 Cardiovascular auscultation of heart Overall: normal heart sounds 03/06/2017 None Full Exam - General 1994 Abdomen abdominal exam Overall: no tenderness 03/06/2017 None Full Exam - General 1994 Abdomen abdominal exam Overall: normal bowel sounds 03/06/2017 None Full Exam - General 1994 Musculoskeletal lower extremity Palpation - thigh: tenderness 03/06/2017 right greater trochanteric bursal inflammation Full Exam - General 1994 Musculoskeletal spine, ribs and pelvis Overall: spine benign 03/06/2017 None Full Exam - General 1994 Musculoskeletal spine, ribs and pelvis Overall: sacroiliac joint benign 03/06/2017 None Full Exam - General 1994 Musculoskeletal spine, ribs and pelvis Overall: good posture 03/06/2017 None Full Exam - General 1994 Musculoskeletal head and neck Overall: head atraumatic 03/06/2017 None Full Exam - General 1994 Musculoskeletal head and neck Overall: cervical spine benign 03/06/2017 None Full Exam - General 1994 Neurologic deep tendon reflexes Overall: deep tendon reflexes intact 03/06/2017 None Full Exam - General 1994 Neurologic cranial nerves Overall: crainial nerves 2 - 12 grossly intact 03/06/2017 None Full Exam - General 1994 Psychiatric orientation/consciousness Overall: oriented to person, place and time 03/06/2017 None Full Exam - General 1994 Psychiatric mood and affect Overall: normal mood and affect 03/06/2017 None Full Exam - General 1994 Lymphatic neck nodes Overall: anterior cervical chain benign 03/06/2017 None Full Exam - General 1994 Musculoskeletal digits and nails DIPs: fifth 03/06/2017 None Full Exam - General 1994 Constitutional general appearance Overall: well developed 12/13/2016 None Full Exam - General 1994 Constitutional general appearance Overall: in no acute distress 12/13/2016 None Full Exam - General 1994 Constitutional general appearance Overall: well nourished 12/13/2016 None Full Exam - General 1994 Eyes conjunctiva /eyelids Overall: conjunctiva clear 12/13/2016 None Full Exam - General 1994 Eyes conjunctiva /eyelids Overall: eyelids normal 12/13/2016 None Full Exam - General 1994 Ears/Nose/Throat otoscopic exam Overall: external auditory canals clear 12/13/2016 None Full Exam - General 1994 Ears/Nose/Throat otoscopic exam Overall: tympanic membranes clear 12/13/2016 None Full Exam - General 1994 Ears/Nose/Throat lips/teeth/gingiva Overall: benign lips 12/13/2016 None Full Exam - General 1994 Ears/Nose/Throat oral cavity/pharynx/larynx Overall: oral mucosa clear 12/13/2016 None Full Exam - General 1994 Ears/Nose/Throat oral cavity/pharynx/larynx Overall: oropharyngeal mucosa clear 12/13/2016 None Full Exam - General 1994 Respiratory respiratory effort/rhythm Overall: no retractions 12/13/2016 None Full Exam - General 1994 Respiratory respiratory effort/rhythm Overall: normal rate 12/13/2016 None Full Exam - General 1994 Respiratory auscultation Lower lung field: rhonchi 12/13/2016 None Full Exam - General 1994 Cardiovascular auscultation of heart Overall: regular rate 12/13/2016 None Full Exam - General 1994 Cardiovascular auscultation of heart Overall: normal heart sounds 12/13/2016 None Full Exam - General 1994 Musculoskeletal gait and station Overall: normal gait 12/13/2016 None Full Exam - General 1994 Musculoskeletal gait and station Overall: normal station 12/13/2016 None Full Exam - General 1994 Musculoskeletal spine, ribs and pelvis Overall: good posture 12/13/2016 None Full Exam - General 1994 Musculoskeletal head and neck Overall: head atraumatic 12/13/2016 None Full Exam - General 1994 Neurologic cranial nerves Overall: crainial nerves 2 - 12 grossly intact 12/13/2016 None Full Exam - General 1994 Neurologic gait Overall: no ataxia, no unsteadiness 12/13/2016 None Full Exam - General 1994 Psychiatric orientation/consciousness Overall: oriented to person, place and time 12/13/2016 None Full Exam - General 1994 Psychiatric mood and affect Overall: normal mood and affect 12/13/2016 None Full Exam - General 1994 Psychiatric appearance Overall: well-groomed, good eye contact 12/13/2016 None Full Exam - General 1994 Musculoskeletal upper extremity ROM - wrist: decreased extension 12/13/2016 None Full Exam - General 1994 Musculoskeletal upper extremity ROM - wrist: decreased radial bending 12/13/2016 None Full Exam - General 1994 Musculoskeletal upper extremity ROM - wrist: decreased flexion 12/13/2016 None Full Exam - General 1994 Neurologic coordination Overall: no tremors 12/13/2016 None Full Exam - General 1994 Cardiovascular inspection of carotid pulses Overall: strong, bilaterally equal, no bruits 12/13/2016 None Full Exam - General 1994 Constitutional general appearance Development: well developed 11/01/2016 None Full Exam - General 1994 Constitutional general appearance Development: appears stated age 0511/01/2016 None Full Exam - General 1994 Constitutional general appearance Hygiene/Attention to Grooming: good hygiene 11/01/2016 None Full Exam - General 1994 Eyes conjunctiva /eyelids Overall: conjunctiva clear 11/01/2016 None Full Exam - General 1994 Eyes conjunctiva /eyelids Overall: cornea clear 11/01/2016 None Full Exam - General 1994 Eyes conjunctiva /eyelids Overall: eyelids normal 11/01/2016 None Full Exam - General 1994 Eyes pupils and irises Overall: pupils equal, round, reactive to light and accomodation 11/01/2016 None Full Exam - General 1994 Ears/Nose/Throat otoscopic exam Overall: external auditory canals clear 11/01/2016 None Full Exam - General 1994 Ears/Nose/Throat otoscopic exam Overall: tympanic membranes clear 11/01/2016 None Full Exam - General 1994 Ears/Nose/Throat lips/teeth/gingiva Overall: benign lips 11/01/2016 None Full Exam - General 1994 Ears/Nose/Throat lips/teeth/gingiva Overall: normal dentition 11/01/2016 None Full Exam - General 1994 Ears/Nose/Throat oral cavity/pharynx/larynx Overall: oral mucosa clear 11/01/2016 None Full Exam - General 1994 Ears/Nose/Throat oral cavity/pharynx/larynx Overall: oropharyngeal mucosa clear 11/01/2016 None Full Exam - General 1994 Ears/Nose/Throat oral cavity/pharynx/larynx Overall: hypopharynx benign 11/01/2016 None Full Exam - General 1994 Ears/Nose/Throat oral cavity/pharynx/larynx Overall: no masses 11/01/2016 None Full Exam - General 1994 Respiratory auscultation Overall: breath sounds clear bilaterally 11/01/2016 None Full Exam - General 1994 Respiratory respiratory effort/rhythm Overall: no retractions 11/01/2016 None Full Exam - General 1994 Respiratory respiratory effort/rhythm Overall: normal rate 11/01/2016 None Full Exam - General 1994 Cardiovascular extremities Overall: no clubbing 11/01/2016 None Full Exam - General 1994 Cardiovascular auscultation of heart Overall: regular rate 11/01/2016 None Full Exam - General 1994 Cardiovascular auscultation of heart Overall: normal heart sounds 11/01/2016 None Full Exam - General 1994 Abdomen abdominal exam Overall: no tenderness 11/01/2016 None Full Exam - General 1994 Abdomen abdominal exam Overall: normal bowel sounds 11/01/2016 None Full Exam - General 1994 Musculoskeletal upper extremity Palpation - elbow: tender lateral epicondyle 11/01/2016 None Full Exam - General 1994 Musculoskeletal lower extremity Palpation - thigh: tenderness 11/01/2016 right greater trochanteric bursal inflammation Full Exam - General 1994 Musculoskeletal spine, ribs and pelvis Overall: spine benign 11/01/2016 None Full Exam - General 1994 Musculoskeletal spine, ribs and pelvis Overall: sacroiliac joint benign 11/01/2016 None Full Exam - General 1994 Musculoskeletal spine, ribs and pelvis Overall: good posture 11/01/2016 None Full Exam - General 1994 Musculoskeletal head and neck Overall: head atraumatic 11/01/2016 None Full Exam - General 1994 Musculoskeletal head and neck Overall: cervical spine benign 11/01/2016 None Full Exam - General 1994 Neurologic deep tendon reflexes Overall: deep tendon reflexes intact 11/01/2016 None Full Exam - General 1994 Neurologic cranial nerves Overall: crainial nerves 2 - 12 grossly intact 11/01/2016 None Full Exam - General 1994 Psychiatric orientation/consciousness Overall: oriented to person, place and time 11/01/2016 None Full Exam - General 1994 Psychiatric mood and affect Overall: normal mood and affect 11/01/2016 None Full Exam - General 1994 Constitutional general appearance Development: well developed 07/04/2016 None Full Exam - General 1994 Constitutional general appearance Development: appears stated age 0107/04/2016 None Full Exam - General 1994 Constitutional general appearance Hygiene/Attention to Grooming: good hygiene 07/04/2016 None Full Exam - General 1994 Eyes conjunctiva /eyelids Overall: conjunctiva clear 07/04/2016 None Full Exam - General 1994 Eyes conjunctiva /eyelids Overall: cornea clear 07/04/2016 None Full Exam - General 1994 Eyes conjunctiva /eyelids Overall: eyelids normal 07/04/2016 None Full Exam - General 1994 Eyes pupils and irises Overall: pupils equal, round, reactive to light and accomodation 07/04/2016 None Full Exam - General 1994 Ears/Nose/Throat otoscopic exam Overall: external auditory canals clear 07/04/2016 None Full Exam - General 1994 Ears/Nose/Throat otoscopic exam Overall: tympanic membranes clear 07/04/2016 None Full Exam - General 1994 Ears/Nose/Throat lips/teeth/gingiva Overall: benign lips 07/04/2016 None Full Exam - General 1994 Ears/Nose/Throat lips/teeth/gingiva Overall: normal dentition 07/04/2016 None Full Exam - General 1994 Ears/Nose/Throat oral cavity/pharynx/larynx Overall: oral mucosa clear 07/04/2016 None Full Exam - General 1994 Ears/Nose/Throat oral cavity/pharynx/larynx Overall: oropharyngeal mucosa clear 07/04/2016 None Full Exam - General 1994 Ears/Nose/Throat oral cavity/pharynx/larynx Overall: hypopharynx benign 07/04/2016 None Full Exam - General 1994 Ears/Nose/Throat oral cavity/pharynx/larynx Overall: no masses 07/04/2016 None Full Exam - General 1994 Respiratory auscultation Overall: breath sounds clear bilaterally 07/04/2016 None Full Exam - General 1994 Respiratory respiratory effort/rhythm Overall: no retractions 07/04/2016 None Full Exam - General 1994 Respiratory respiratory effort/rhythm Overall: normal rate 07/04/2016 None Full Exam - General 1994 Cardiovascular extremities Overall: no clubbing 07/04/2016 None Full Exam - General 1994 Cardiovascular auscultation of heart Overall: regular rate 07/04/2016 None Full Exam - General 1994 Cardiovascular auscultation of heart Overall: normal heart sounds 07/04/2016 None Full Exam - General 1994 Abdomen abdominal exam Overall: no tenderness 07/04/2016 None Full Exam - General 1994 Abdomen abdominal exam Overall: normal bowel sounds 07/04/2016 None Full Exam - General 1994 Musculoskeletal upper extremity Palpation - elbow: tender lateral epicondyle 07/04/2016 None Full Exam - General 1994 Musculoskeletal lower extremity Palpation - thigh: tenderness 07/04/2016 right greater trochanteric bursal inflammation Full Exam - General 1994 Musculoskeletal spine, ribs and pelvis Overall: spine benign 07/04/2016 None Full Exam - General 1994 Musculoskeletal spine, ribs and pelvis Overall: sacroiliac joint benign 07/04/2016 None Full Exam - General 1994 Musculoskeletal spine, ribs and pelvis Overall: good posture 07/04/2016 None Full Exam - General 1994 Musculoskeletal head and neck Overall: head atraumatic 07/04/2016 None Full Exam - General 1994 Musculoskeletal head and neck Overall: cervical spine benign 07/04/2016 None Full Exam - General 1994 Neurologic deep tendon reflexes Overall: deep tendon reflexes intact 07/04/2016 None Full Exam - General 1994 Neurologic cranial nerves Overall: crainial nerves 2 - 12 grossly intact 07/04/2016 None Full Exam - General 1994 Psychiatric orientation/consciousness Overall: oriented to person, place and time 07/04/2016 None Full Exam - General 1994 Psychiatric mood and affect Overall: normal mood and affect 07/04/2016 None Full Exam - General 1994 Constitutional general appearance Development: well developed 03/07/2016 None Full Exam - General 1994 Constitutional general appearance Development: appears stated age 0903/07/2016 None Full Exam - General 1994 Constitutional general appearance Hygiene/Attention to Grooming: good hygiene 03/07/2016 None Full Exam - General 1994 Eyes conjunctiva /eyelids Overall: conjunctiva clear 03/07/2016 None Full Exam - General 1994 Eyes conjunctiva /eyelids Overall: cornea clear 03/07/2016 None Full Exam - General 1994 Eyes conjunctiva /eyelids Overall: eyelids normal 03/07/2016 None Full Exam - General 1994 Eyes pupils and irises Overall: pupils equal, round, reactive to light and accomodation 03/07/2016 None Full Exam - General 1994 Ears/Nose/Throat otoscopic exam Overall: external auditory canals clear 03/07/2016 None Full Exam - General 1994 Ears/Nose/Throat otoscopic exam Overall: tympanic membranes clear 03/07/2016 None Full Exam - General 1994 Ears/Nose/Throat lips/teeth/gingiva Overall: benign lips 03/07/2016 None Full Exam - General 1994 Ears/Nose/Throat lips/teeth/gingiva Overall: normal dentition 03/07/2016 None Full Exam - General 1994 Ears/Nose/Throat oral cavity/pharynx/larynx Overall: oral mucosa clear 03/07/2016 None Full Exam - General 1994 Ears/Nose/Throat oral cavity/pharynx/larynx Overall: oropharyngeal mucosa clear 03/07/2016 None Full Exam - General 1994 Ears/Nose/Throat oral cavity/pharynx/larynx Overall: hypopharynx benign 03/07/2016 None Full Exam - General 1994 Ears/Nose/Throat oral cavity/pharynx/larynx Overall: no masses 03/07/2016 None Full Exam - General 1994 Respiratory auscultation Overall: breath sounds clear bilaterally 03/07/2016 None Full Exam - General 1994 Respiratory respiratory effort/rhythm Overall: no retractions 03/07/2016 None Full Exam - General 1994 Respiratory respiratory effort/rhythm Overall: normal rate 03/07/2016 None Full Exam - General 1994 Cardiovascular extremities Overall: no clubbing 03/07/2016 None Full Exam - General 1994 Cardiovascular auscultation of heart Overall: regular rate 03/07/2016 None Full Exam - General 1994 Cardiovascular auscultation of heart Overall: normal heart sounds 03/07/2016 None Full Exam - General 1994 Abdomen abdominal exam Overall: no tenderness 03/07/2016 None Full Exam - General 1994 Abdomen abdominal exam Overall: normal bowel sounds 03/07/2016 None Full Exam - General 1994 Musculoskeletal upper extremity Palpation - elbow: tender lateral epicondyle 03/07/2016 None Full Exam - General 1994 Musculoskeletal lower extremity Palpation - thigh: tenderness 03/07/2016 right greater trochanteric bursal inflammation Full Exam - General 1994 Musculoskeletal spine, ribs and pelvis Overall: spine benign 03/07/2016 None Full Exam - General 1994 Musculoskeletal spine, ribs and pelvis Overall: sacroiliac joint benign 03/07/2016 None Full Exam - General 1994 Musculoskeletal spine, ribs and pelvis Overall: good posture 03/07/2016 None Full Exam - General 1994 Musculoskeletal head and neck Overall: head atraumatic 03/07/2016 None Full Exam - General 1994 Musculoskeletal head and neck Overall: cervical spine benign 03/07/2016 None Full Exam - General 1994 Neurologic deep tendon reflexes Overall: deep tendon reflexes intact 03/07/2016 None Full Exam - General 1994 Neurologic cranial nerves Overall: crainial nerves 2 - 12 grossly intact 03/07/2016 None Full Exam - General 1994 Psychiatric orientation/consciousness Overall: oriented to person, place and time 03/07/2016 None Full Exam - General 1994 Psychiatric mood and affect Overall: normal mood and affect 03/07/2016 None Full Exam - General 1994 Constitutional general appearance Development: well developed 01/06/2016 None Full Exam - General 1994 Constitutional general appearance Development: appears stated age 0701/06/2016 None Full Exam - General 1994 Constitutional general appearance Hygiene/Attention to Grooming: good hygiene 01/06/2016 None Full Exam - General 1994 Eyes conjunctiva /eyelids Overall: conjunctiva clear 01/06/2016 None Full Exam - General 1994 Eyes conjunctiva /eyelids Overall: cornea clear 01/06/2016 None Full Exam - General 1994 Eyes conjunctiva /eyelids Overall: eyelids normal 01/06/2016 None Full Exam - General 1994 Eyes pupils and irises Overall: pupils equal, round, reactive to light and accomodation 01/06/2016 None Full Exam - General 1994 Ears/Nose/Throat otoscopic exam Overall: external auditory canals clear 01/06/2016 None Full Exam - General 1994 Ears/Nose/Throat otoscopic exam Overall: tympanic membranes clear 01/06/2016 None Full Exam - General 1994 Ears/Nose/Throat lips/teeth/gingiva Overall: benign lips 01/06/2016 None Full Exam - General 1994 Ears/Nose/Throat lips/teeth/gingiva Overall: normal dentition 01/06/2016 None Full Exam - General 1994 Ears/Nose/Throat oral cavity/pharynx/larynx Overall: oral mucosa clear 01/06/2016 None Full Exam - General 1994 Ears/Nose/Throat oral cavity/pharynx/larynx Overall: oropharyngeal mucosa clear 01/06/2016 None Full Exam - General 1994 Ears/Nose/Throat oral cavity/pharynx/larynx Overall: hypopharynx benign 01/06/2016 None Full Exam - General 1994 Ears/Nose/Throat oral cavity/pharynx/larynx Overall: no masses 01/06/2016 None Full Exam - General 1994 Respiratory auscultation Overall: breath sounds clear bilaterally 01/06/2016 None Full Exam - General 1994 Respiratory respiratory effort/rhythm Overall: no retractions 01/06/2016 None Full Exam - General 1994 Respiratory respiratory effort/rhythm Overall: normal rate 01/06/2016 None Full Exam - General 1994 Cardiovascular extremities Overall: no clubbing 01/06/2016 None Full Exam - General 1994 Cardiovascular auscultation of heart Overall: regular rate 01/06/2016 None Full Exam - General 1994 Cardiovascular auscultation of heart Overall: normal heart sounds 01/06/2016 None Full Exam - General 1994 Abdomen abdominal exam Overall: no tenderness 01/06/2016 None Full Exam - General 1994 Abdomen abdominal exam Overall: normal bowel sounds 01/06/2016 None Full Exam - General 1994 Musculoskeletal upper extremity Palpation - elbow: tender lateral epicondyle 01/06/2016 None Full Exam - General 1994 Musculoskeletal lower extremity Palpation - thigh: tenderness 01/06/2016 right greater trochanteric bursal inflammation Full Exam - General 1994 Musculoskeletal spine, ribs and pelvis Overall: spine benign 01/06/2016 None Full Exam - General 1994 Musculoskeletal spine, ribs and pelvis Overall: sacroiliac joint benign 01/06/2016 None Full Exam - General 1994 Musculoskeletal spine, ribs and pelvis Overall: good posture 01/06/2016 None Full Exam - General 1994 Musculoskeletal head and neck Overall: head atraumatic 01/06/2016 None Full Exam - General 1994 Musculoskeletal head and neck Overall: cervical spine benign 01/06/2016 None Full Exam - General 1994 Neurologic deep tendon reflexes Overall: deep tendon reflexes intact 01/06/2016 None Full Exam - General 1994 Neurologic cranial nerves Overall: crainial nerves 2 - 12 grossly intact 01/06/2016 None Full Exam - General 1994 Psychiatric orientation/consciousness Overall: oriented to person, place and time 01/06/2016 None Full Exam - General 1994 Psychiatric mood and affect Overall: normal mood and affect 01/06/2016 None Full Exam - General 1994 Constitutional general appearance Development: well developed 09/07/2015 None Full Exam - General 1994 Constitutional general appearance Development: appears stated age 0309/07/2015 None Full Exam - General 1994 Constitutional general appearance Hygiene/Attention to Grooming: good hygiene 09/07/2015 None Full Exam - General 1994 Eyes conjunctiva /eyelids Overall: conjunctiva clear 09/07/2015 None Full Exam - General 1994 Eyes conjunctiva /eyelids Overall: cornea clear 09/07/2015 None Full Exam - General 1994 Eyes conjunctiva /eyelids Overall: eyelids normal 09/07/2015 None Full Exam - General 1994 Eyes pupils and irises Overall: pupils equal, round, reactive to light and accomodation 09/07/2015 None Full Exam - General 1994 Ears/Nose/Throat otoscopic exam Overall: external auditory canals clear 09/07/2015 None Full Exam - General 1994 Ears/Nose/Throat otoscopic exam Overall: tympanic membranes clear 09/07/2015 None Full Exam - General 1994 Ears/Nose/Throat lips/teeth/gingiva Overall: benign lips 09/07/2015 None Full Exam - General 1994 Ears/Nose/Throat lips/teeth/gingiva Overall: normal dentition 09/07/2015 None Full Exam - General 1994 Ears/Nose/Throat oral cavity/pharynx/larynx Overall: oral mucosa clear 09/07/2015 None Full Exam - General 1994 Ears/Nose/Throat oral cavity/pharynx/larynx Overall: oropharyngeal mucosa clear 09/07/2015 None Full Exam - General 1994 Ears/Nose/Throat oral cavity/pharynx/larynx Overall: hypopharynx benign 09/07/2015 None Full Exam - General 1994 Ears/Nose/Throat oral cavity/pharynx/larynx Overall: no masses 09/07/2015 None Full Exam - General 1994 Respiratory auscultation Overall: breath sounds clear bilaterally 09/07/2015 None Full Exam - General 1994 Respiratory respiratory effort/rhythm Overall: no retractions 09/07/2015 None Full Exam - General 1994 Respiratory respiratory effort/rhythm Overall: normal rate 09/07/2015 None Full Exam - General 1994 Cardiovascular extremities Overall: no clubbing 09/07/2015 None Full Exam - General 1994 Cardiovascular auscultation of heart Overall: regular rate 09/07/2015 None Full Exam - General 1994 Cardiovascular auscultation of heart Overall: normal heart sounds 09/07/2015 None Full Exam - General 1994 Abdomen abdominal exam Overall: no tenderness 09/07/2015 None Full Exam - General 1994 Abdomen abdominal exam Overall: normal bowel sounds 09/07/2015 None Full Exam - General 1994 Lymphatic neck nodes Overall: anterior cervical chain benign 09/07/2015 None Full Exam - General 1994 Lymphatic neck nodes Overall: posterior cervical chain benign 09/07/2015 None Full Exam - General 1994 Musculoskeletal spine, ribs and pelvis Overall: spine benign 09/07/2015 None Full Exam - General 1994 Musculoskeletal spine, ribs and pelvis Overall: sacroiliac joint benign 09/07/2015 None Full Exam - General 1994 Musculoskeletal spine, ribs and pelvis Overall: good posture 09/07/2015 None Full Exam - General 1994 Musculoskeletal head and neck Overall: head atraumatic 09/07/2015 None Full Exam - General 1994 Musculoskeletal head and neck Overall: cervical spine benign 09/07/2015 None Full Exam - General 1994 Integument inspection of skin Overall: few scattered moles, no gross abnormalities 09/07/2015 None Full Exam - General 1994 Neurologic deep tendon reflexes Overall: deep tendon reflexes intact 09/07/2015 None Full Exam - General 1994 Neurologic cranial nerves Overall: crainial nerves 2 - 12 grossly intact 09/07/2015 None Full Exam - General 1994 Psychiatric orientation/consciousness Overall: oriented to person, place and time 09/07/2015 None Full Exam - General 1994 Psychiatric mood and affect Overall: normal mood and affect 09/07/2015 None Full Exam - General 1994 Musculoskeletal lower extremity Palpation - thigh: tenderness 09/07/2015 right greater trochanteric bursal inflammation Full Exam - General 1994 Musculoskeletal upper extremity Palpation - elbow: tender lateral epicondyle 09/07/2015 None Full Exam - General 1994 Constitutional general appearance Development: well developed 12/01/2014 None Full Exam - General 1994 Constitutional general appearance Development: appears stated age 0612/01/2014 None Full Exam - General 1994 Constitutional general appearance Hygiene/Attention to Grooming: good hygiene 12/01/2014 None Full Exam - General 1994 Eyes conjunctiva /eyelids Overall: conjunctiva clear 12/01/2014 None Full Exam - General 1994 Eyes conjunctiva /eyelids Overall: cornea clear 12/01/2014 None Full Exam - General 1994 Eyes conjunctiva /eyelids Overall: eyelids normal 12/01/2014 None Full Exam - General 1994 Eyes pupils and irises Overall: pupils equal, round, reactive to light and accomodation 12/01/2014 None Full Exam - General 1994 Ears/Nose/Throat otoscopic exam Overall: external auditory canals clear 12/01/2014 None Full Exam - General 1994 Ears/Nose/Throat otoscopic exam Overall: tympanic membranes clear 12/01/2014 None Full Exam - General 1994 Ears/Nose/Throat lips/teeth/gingiva Overall: benign lips 12/01/2014 None Full Exam - General 1994 Ears/Nose/Throat lips/teeth/gingiva Overall: normal dentition 12/01/2014 None Full Exam - General 1994 Ears/Nose/Throat oral cavity/pharynx/larynx Overall: oral mucosa clear 12/01/2014 None Full Exam - General 1994 Ears/Nose/Throat oral cavity/pharynx/larynx Overall: oropharyngeal mucosa clear 12/01/2014 None Full Exam - General 1994 Ears/Nose/Throat oral cavity/pharynx/larynx Overall: hypopharynx benign 12/01/2014 None Full Exam - General 1994 Ears/Nose/Throat oral cavity/pharynx/larynx Overall: no masses 12/01/2014 None Full Exam - General 1994 Respiratory auscultation Overall: breath sounds clear bilaterally 12/01/2014 None Full Exam - General 1994 Respiratory respiratory effort/rhythm Overall: no retractions 12/01/2014 None Full Exam - General 1994 Respiratory respiratory effort/rhythm Overall: normal rate 12/01/2014 None Full Exam - General 1994 Cardiovascular extremities Overall: no clubbing 12/01/2014 None Full Exam - General 1994 Cardiovascular auscultation of heart Overall: regular rate 12/01/2014 None Full Exam - General 1994 Cardiovascular auscultation of heart Overall: normal heart sounds 12/01/2014 None Full Exam - General 1994 Abdomen abdominal exam Overall: no tenderness 12/01/2014 None Full Exam - General 1994 Abdomen abdominal exam Overall: normal bowel sounds 12/01/2014 None Full Exam - General 1994 Lymphatic neck nodes Overall: anterior cervical chain benign 12/01/2014 None Full Exam - General 1994 Lymphatic neck nodes Overall: posterior cervical chain benign 12/01/2014 None Full Exam - General 1994 Musculoskeletal spine, ribs and pelvis Overall: spine benign 12/01/2014 None Full Exam - General 1994 Musculoskeletal spine, ribs and pelvis Overall: sacroiliac joint benign 12/01/2014 None Full Exam - General 1994 Musculoskeletal spine, ribs and pelvis Overall: good posture 12/01/2014 None Full Exam - General 1994 Musculoskeletal head and neck Overall: head atraumatic 12/01/2014 None Full Exam - General 1994 Musculoskeletal head and neck Overall: cervical spine benign 12/01/2014 None Full Exam - General 1994 Integument inspection of skin Overall: few scattered moles, no gross abnormalities 12/01/2014 None Full Exam - General 1994 Neurologic deep tendon reflexes Overall: deep tendon reflexes intact 12/01/2014 None Full Exam - General 1994 Neurologic cranial nerves Overall: crainial nerves 2 - 12 grossly intact 12/01/2014 None Full Exam - General 1994 Psychiatric orientation/consciousness Overall: oriented to person, place and time 12/01/2014 None Full Exam - General 1994 Psychiatric mood and affect Overall: normal mood and affect 12/01/2014 None Full Exam - General 1994 Musculoskeletal lower extremity Inspection - ankle: presence of a scar 12/01/2014 None Procedures Procedure Codes Date FLU VAC NO PRSV 4 WEI 3 YRS+ CPT-4: 86216 04/30/2017 IMMUNIZATION ADMIN CPT -4: 35959 04/30/2017 TOBACCO-USE [employer] TE[employer] 3-[address]: [id number] CPT-4: G0436 03/06/2017 URINALYSIS NONAUTO W/O SCOPE CPT-4: 15349 03/07/2016 URINALYSIS NONAUTO W/O SCOPE CPT-4: 99024 08/03/2015 Vital Signs Date Vital 11/05/2017 Blood Pressure 1: 124/70 Code : 8480-6 BMI: 24.0 Code : 70552-9 Heart Rate 1 : 70 bpm Height: 5'4" SpO2: 98% Weight: 140 lbs 07/13/2017 Blood Pressure 1: 126/82 Code : 8480-6 BMI: 23.7 Code : 61232-6 Heart Rate 1 : 80 bpm Height: 5'4" SpO2: 97% Weight: 138 lbs 03/06/2017 Blood Pressure 1: 120/76 Code : 8480-6 BMI: 23.3 Code : 39599-2 Heart Rate 1 : 79 bpm Height: 5'4" SpO2: 97% Weight: 136 lbs 12/13/2016 Blood Pressure 1: 132/80 Code : 8480-6 BMI: 23.3 Code : 49668-0 Heart Rate 1 : 88 bpm Height: 5'4" SpO2: 97% Weight: 136 lbs 11/01/2016 Blood Pressure 1: 128/76 Code : 8480-6 BMI: 23.5 Code : 26620-6 Heart Rate 1 : 77 bpm Height: 5'4" SpO2: 98% Weight: 137 lbs 07/04/2016 Blood Pressure 1: 132/86 Code : 8480-6 BMI: 22.8 Code : 47111-2 Heart Rate 1 : 71 bpm Height: 5'4" SpO2: 98% Weight: 133 lbs 03/07/2016 Blood Pressure 1: 118/70 Code : 8480-6 BMI: 23.0 Code : 29098-6 Heart Rate 1 : 76 bpm Height: 5'4" SpO2: 98% Temperature: 37.1 (C) / 98.7 (F) Weight: 134 lbs 01/06/2016 Blood Pressure 1: 130/78 Code : 8480-6 BMI: 23.7 Code : 61913-8 Heart Rate 1 : 76 bpm Height: 5'4" SpO2: 98% Weight: 138 lbs 09/07/2015 Blood Pressure 1: 118/78 Code : 8480-6 BMI: 24.7 Code : 56085-1 Heart Rate 1 : 81 bpm Height: 5'4" SpO2: 97% Weight: 144 lbs 12/01/2014 Blood Pressure 1: 145/70 Code : 8480-6 BMI: 24.9 Code : 81405-2 Heart Rate 1 : 88 bpm Height: 5'4" Respiratory Rate: 16 bpm Weight: 145 lbs Functional Status No Functional Status data History of Present Illness Symptom Name Status Result Effective Date Notes hypothyroid Location at the level of the thyroid 11/05/2017 None hypothyroid Quality chronic 11/05/2017 None hypothyroid Onset and Resolution ongoing 11/05/2017 None hypothyroid Alleviating Factors medication 11/05/2017 None depression Onset and Resolution ongoing 11/05/2017 None depression Alleviating Factors medication 11/05/2017 None hypertension Quality primary hypertension 11/05/2017 None hypertension Onset and Resolution ongoing 11/05/2017 None hypertension Onset of Symptom during adulthood 11/05/2017 None hypertension Blood Pressure Values not checking blood pressure at home 11/05/2017 None hypertension Alleviating Factors medication 11/05/2017 None hypertension Pertinent Findings dizziness 11/05/2017 -"always feels off balance" hypertension Pertinent Findings Denies dyspnea 11/05/2017 None hypertension Pertinent Findings edema 11/05/2017 -since it has gotten warmer outside with working; hands swell constantly hypertension Quality chronic 11/05/2017 None hypertension Quality stable 11/05/2017 None hypothyroid Location at the level of the thyroid 07/13/2017 None hypothyroid Quality chronic 07/13/2017 None hypothyroid Onset and Resolution ongoing 07/13/2017 None hypothyroid Alleviating Factors medication 07/13/2017 None depression Onset and Resolution ongoing 07/13/2017 None depression Alleviating Factors medication 07/13/2017 None hypertension Quality primary hypertension 07/13/2017 None hypertension Onset and Resolution ongoing 07/13/2017 None hypertension Onset of Symptom during adulthood 07/13/2017 None hypertension Blood Pressure Values not checking blood pressure at home 07/13/2017 None hypertension Alleviating Factors medication 07/13/2017 None hypertension Pertinent Findings dizziness 07/13/2017 None hypertension Pertinent Findings Denies dyspnea 07/13/2017 None hypertension Pertinent Findings Denies edema 07/13/2017 None dizziness Quality imbalance 07/13/2017 None dizziness Quality lightheadedness 07/13/2017 None dizziness Quality intermittent 07/13/2017 None dizziness Onset and Resolution ongoing 07/13/2017 None dizziness Frequency of Episodes daily 07/13/2017 None hypothyroid Location at the level of the thyroid 03/06/2017 None hypothyroid Quality chronic 03/06/2017 None hypothyroid Onset and Resolution ongoing 03/06/2017 None hypothyroid Alleviating Factors medication 03/06/2017 None depression Onset and Resolution ongoing 03/06/2017 None depression Alleviating Factors medication 03/06/2017 None hypertension Quality primary hypertension 03/06/2017 None hypertension Onset and Resolution ongoing 03/06/2017 None hypertension Onset of Symptom during adulthood 03/06/2017 None hypertension Alleviating Factors medication 03/06/2017 None hypertension Blood Pressure Values not checking blood pressure at home 03/06/2017 None hypertension Pertinent Findings dizziness 03/06/2017 None hypertension Pertinent Findings Denies dyspnea 03/06/2017 None hypertension Pertinent Findings Denies edema 03/06/2017 None cough Quality intermittent 03/06/2017 None cough Onset and Resolution ongoing 03/06/2017 None cough Quality productive 03/06/2017 None cough Onset of Symptom 2.5 months ago 03/06/2017 None cough Frequency of Episodes daily 03/06/2017 None cough Pertinent Findings sputum production 03/06/2017 thick, [place] cough Pertinent Findings Denies fever 03/06/2017 None dizziness Quality intermittent 03/06/2017 None dizziness Quality lightheadedness 03/06/2017 None dizziness Quality imbalance 03/06/2017 None dizziness Onset and Resolution ongoing 03/06/2017 None dizziness Frequency of Episodes daily 03/06/2017 None cough Quality acute None thumb and hand pain Limitation on Activities moderately limits activities 12/13/2016 None thumb and hand pain Location in the right thumb 12/13/2016 None thumb and hand pain Quality acute 12/13/2016 None thumb and hand pain Pertinent Findings Denies fever 12/13/2016 None thumb and hand pain Pertinent Findings decreased range of motion 12/13/2016 None hypothyroid Location at the level of the thyroid 11/01/2016 None hypothyroid Quality chronic 11/01/2016 None hypothyroid Onset and Resolution ongoing 11/01/2016 None hypothyroid Alleviating Factors medication 11/01/2016 None depression Onset and Resolution ongoing 11/01/2016 None depression Alleviating Factors medication 11/01/2016 None hand pain Location on the left 11/01/2016 None hand pain Onset and Resolution ongoing 11/01/2016 None hypothyroid Location at the level of the thyroid 07/04/2016 None hypothyroid Quality chronic 07/04/2016 None hypothyroid Onset and Resolution ongoing 07/04/2016 None hypothyroid Alleviating Factors medication 07/04/2016 None depression Onset and Resolution ongoing 07/04/2016 None joint complaint Location diffusely 07/04/2016 None fatigue Onset and Resolution gradual in onset 07/04/2016 None fatigue Onset and Resolution ongoing 07/04/2016 None fatigue Onset of Symptom months ago 07/04/2016 None paresthesia Location on both legs 07/04/2016 None paresthesia Quality intermittent 07/04/2016 None paresthesia Quality pins and needles 07/04/2016 None paresthesia Onset and Resolution ongoing 07/04/2016 None cough Quality intermittent 07/04/2016 None cough Quality productive 07/04/2016 None cough Onset and Resolution ongoing 07/04/2016 None cough Triggers cigarette smoking 07/04/2016 None cough Pertinent Findings Denies fever 07/04/2016 None cough Pertinent Findings Denies chills 07/04/2016 None cough Pertinent Findings sputum production 07/04/2016 None joint complaint Quality chronic 07/04/2016 None joint complaint Onset and Resolution ongoing 07/04/2016 None depression Alleviating Factors medication 07/04/2016 None hypothyroid Location at the level of the thyroid 03/07/2016 None hypothyroid Quality chronic 03/07/2016 None hypothyroid Onset and Resolution ongoing 03/07/2016 None hypothyroid Triggers no known associated factors 03/07/2016 None hypothyroid Alleviating Factors medication 03/07/2016 None depression Quality worsening 03/07/2016 None depression Onset and Resolution ongoing 03/07/2016 None fatigue Onset and Resolution gradual in onset 03/07/2016 None fatigue Onset and Resolution ongoing 03/07/2016 None fatigue Onset of Symptom months ago 03/07/2016 None joint complaint Location diffusely 03/07/2016 None hypothyroid Location at the level of the thyroid 01/06/2016 None hypothyroid Quality chronic 01/06/2016 None hypothyroid Onset and Resolution ongoing 01/06/2016 None hypothyroid Triggers no known associated factors 01/06/2016 None hypothyroid Alleviating Factors medication 01/06/2016 None elbow pain Location on the right 01/06/2016 None depression Onset and Resolution ongoing 01/06/2016 None hip pain Location on the right 01/06/2016 None fatigue Onset and Resolution ongoing 01/06/2016 None fatigue Onset and Resolution gradual in onset 01/06/2016 None fatigue Onset of Symptom months ago 01/06/2016 None depression Quality worsening 01/06/2016 None hip pain Quality worsening 01/06/2016 None hip pain Onset and Resolution ongoing 01/06/2016 None gastroesophageal reflux Quality chronic 09/07/2015 None gastroesophageal reflux Onset and Resolution ongoing 09/07/2015 None gastroesophageal reflux Severity moderate 09/07/2015 None gastroesophageal reflux Triggers no known associated factors 09/07/2015 None hypothyroid Location at the level of the thyroid 09/07/2015 None hypothyroid Quality chronic 09/07/2015 None hypothyroid Onset and Resolution ongoing 09/07/2015 None hypothyroid Triggers no known associated factors 09/07/2015 None ankle pain Location on the right 09/07/2015 None ankle pain Severity moderate 09/07/2015 None ankle pain Quality chronic 09/07/2015 None gastroesophageal reflux Alleviating Factors medication 09/07/2015 dexilant hypothyroid Alleviating Factors medication 09/07/2015 None elbow pain Location on the right 09/07/2015 None depression Onset and Resolution ongoing 09/07/2015 None hip pain Location on the right 09/07/2015 None pruritus Location-Major on the neck 09/07/2015 None pruritus Location-Major on the hands 09/07/2015 None gastroesophageal reflux Quality chronic 12/01/2014 None gastroesophageal reflux Onset and Resolution ongoing 12/01/2014 None gastroesophageal reflux Severity moderate 12/01/2014 None gastroesophageal reflux Triggers no known associated factors 12/01/2014 None hypothyroid Location at the level of the thyroid 12/01/2014 None hypothyroid Quality chronic 12/01/2014 None hypothyroid Onset and Resolution ongoing 12/01/2014 None hypothyroid Triggers no known associated factors 12/01/2014 None ankle pain Location on the right 12/01/2014 None ankle pain Quality throbbing 12/01/2014 None ankle pain Severity moderate 12/01/2014 None Advance Directives No Advance Directive data Encounters Encounter Performer Location Codes Date ([id number]) PREV VISIT EST AGE 40-64 Diagnosis: Encounter for general adult medical examination without abnormal findings[ICD10: Z00.00] [facility] CPT-4: 10179 11/05/2017 ([id number]) 61650 EST. PATIENT, LEVEL IV Diagnosis: Essential (primary) hypertension[ICD10: I10] Diagnosis: Atrophy of thyroid (acquired)[ICD10: E03.4] Diagnosis: Major depressive disorder, recurrent, moderate[ICD10: F33.1] Diagnosis: Other chronic pain[ICD10: G89.29] [facility] CPT-4: 95987 07/13/2017 ([id number]) 35445 EST. PATIENT, LEVEL IV Diagnosis: Essential (primary) hypertension[ICD10: I10] Diagnosis: Major depressive disorder, recurrent, moderate[ICD10: F33.1] Diagnosis: Atrophy of thyroid (acquired)[ICD10: E03.4] Diagnosis: Other chronic pain[ICD10: G89.29] [facility]anova MD, [facility] CPT-4: 05694 03/06/2017 [id number] EST. PATIENT, LEVEL IV Diagnosis: Acute bronchitis due to other specified organisms[ICD10: J20.8] Diagnosis: Pain in left hand[ICD10: M79.642] Diagnosis: Bitten or stung by nonvenomous insect and other nonvenomous arthropods, initial encounter[ICD10: W57.XXXA] Luis Casanova MD, [facility] CPT-4: 24921 12/13/2016 ([id number]) [id number] EST. PATIENT, LEVEL IV Diagnosis: Atrophy of thyroid (acquired)[ICD10: E03.4] Diagnosis: Major depressive disorder, recurrent, moderate[ICD10: F33.1] Diagnosis: Essential (primary) hypertension[ICD10: I10] Diagnosis: Encounter for screening mammogram for malignant neoplasm of breast[ ICD10: Z12.31] Sandy Casanova MD, [facility] CPT-4: 47134 11/01/2016 ([id number]) 02515 EST. PATIENT, LEVEL IV Diagnosis: Atrophy of thyroid (acquired)[ICD10: E03.4] Diagnosis: Major depressive disorder, recurrent, moderate[ICD10: F33.1] Diagnosis: Essential (primary) hypertension[ICD10: I10] Sandy Casanova MD, [facility] CPT-4: 04400 07/04/2016 ([id number]) [id number] EST. PATIENT, LEVEL IV Diagnosis: Atrophy of thyroid (acquired)[ICD10: E03.4] Diagnosis: Major depressive disorder, recurrent, moderate[ICD10: F33.1] Diagnosis: Other chronic pain[ICD10: G89.29] Diagnosis: Dysuria[ICD10: R30.0] Sandy Casanova MD, [facility] CPT-4: 68073 03/07/2016 ([id number]) 32008 EST. PATIENT, LEVEL IV Diagnosis: Hypothyroidism, unspecified[ICD10: E03.9] Diagnosis: Other chronic pain[ICD10: G89.29] Diagnosis: Major depressive disorder, recurrent, unspecified[ICD10: F33.9] Diagnosis: Iliotibial band syndrome, right leg[ICD10: M76.31] Sandy Casanova MD, [facility] CPT-4: 69576 01/06/2016 ([id number]) 37249 EST. PATIENT, LEVEL IV Diagnosis: Hypothyroidism, unspecified[ICD10: E03.9] Diagnosis: Pain in right hip[ICD10: M25.551] Diagnosis: Lateral epicondylitis, right elbow[ICD10: M77.11] Diagnosis: Major depressive disorder, recurrent, unspecified[ICD10: F33.9] [facility] CPT-4: 43880 09/07/2015 ([id number]) OFFICE VISIT, NEW - LEVEL 4 Diagnosis: ESOPHAGEAL REFLUX[ICD9: 530.81] Diagnosis: HYPOTHYROIDISM[ICD9: 244.9] Diagnosis: Chronic pain[ICD9: 338.29] Sandy Casanova MD, [facility] CPT- 4: 76098 12/01/2014 Plan of Care Planned Activity Notes Codes Status Date Visit Plan: Well Adult - pt was counseled about diet, exercise, and encouraged to follow a heart healthy diet and increase activity level. The patient was instructed to RTC yearly for well adult exams and PRN for acute illnesses. The pt was also instructed to have yearly labs for check of cholesterol, thyroid, chem panel, CBC, and renal functioning. Hypertension - well controlled - continue with current medications, continue with no added salt diet. Pt has been encouraged to exercise daily. The pt has been advised to call the office if there are any acute concerns about change in blood pressure readings at home. Hypothyroidism - pt with chronic hypothyroidism, continue with current medication, will monitor pt to signs or symptoms of lack of adequate supplementation. Pt is to continue with current dose of medication unless directed otherwise. Check labs at regular intervals wither q 3 months or q 6 months based on previous levels of control. Chronic Pain Syndrome - pt has chronic pain - has been maintained on current medications, has not sought out other medications, only uses PRN pain medications as directed, and understands the consequences of over-medication. 11/05/2017 Visit Plan: Well Adult - pt was counseled about diet, exercise, and encouraged to follow a heart healthy diet and increase activity level. The patient was instructed to RTC yearly for well adult exams and PRN for acute illnesses. The pt was also instructed to have yearly labs for check of cholesterol, thyroid, chem panel, CBC, and renal functioning. Hypertension - well controlled - continue with current medications, continue with no added salt diet. Pt has been encouraged to exercise daily. The pt has been advised to call the office if there are any acute concerns about change in blood pressure readings at home. Hypothyroidism - pt with chronic hypothyroidism, continue with current medication, will monitor pt to signs or symptoms of lack of adequate supplementation. Pt is to continue with current dose of medication unless directed otherwise. Check labs at regular intervals wither q 3 months or q 6 months based on previous levels of control. Chronic Pain Syndrome - pt has chronic pain - has been maintained on current medications, has not sought out other medications, only uses PRN pain medications as directed, and understands the consequences of over-medication. 11/05/2017 Appointment: [facility] [phone] [id number] (15 min) Moderate 11/05/2017 Patient Education: Patient Medication Summary Completed 11/05/2017 Visit Plan: Hypertension - well controlled - continue with current medications, continue with no added salt diet. Pt has been encouraged to exercise daily. The pt has been advised to call the office if there are any acute concerns about change in blood pressure readings at home. Hypothyroidism - pt with chronic hypothyroidism, continue with current medication, will monitor pt to signs or symptoms of lack of adequate supplementation. Pt is to continue with current dose of medication unless directed otherwise. Check labs at regular intervals wither q 3 months or q 6 months based on previous levels of control. Chronic Depression and anxiety - the pt has symptoms of chronic anxiety and depression that have been fairly well controlled since the last office visit. The pt has expected periods of exacerbation with abatement of the symptoms with change in situational exposure. No change in current medications. Chronic Pain Syndrome - pt has chronic pain - has been maintained on current medications, has not sought out other medications, only uses PRN pain medications as directed, and understands the consequences of over-medication. 07/13/2017 Appointment: Sandy Cas[facility]el[facility] [phone] [id number] [place] (15 min) Moderate 07/13/2017 Patient Education: Patient Medication Summary Completed 07/13/2017 Appointment: Sandy Casanova WPtel[facility] [phone] [id number] [place] (15 min) Moderate 07/09/2017 Appointment: Injection 04/30/2017 Patient Education: Patient Medication Summary Completed 04/30/2017 Patient Education: Smoking and Tobacco Addiction Completed 04/30/2017 Visit Plan: Hypertension - well controlled - continue with current medications, continue with no added salt diet. Pt has been encouraged to exercise daily. The pt has been advised to call the office if there are any acute concerns about change in blood pressure readings at home. Chronic Depression and anxiety - the pt has symptoms of chronic anxiety and depression that have been fairly well controlled since the last office visit. The pt has expected periods of exacerbation with abatement of the symptoms with change in situational exposure. No change in current medications. Significant marital issues - I have recommended that she needs to have discussions with her top lift nailer about her possible marital issues. Hypothyroidism - pt with chronic hypothyroidism, continue with current medication, will monitor pt to signs or symptoms of lack of adequate supplementation. Pt is to continue with current dose of medication unless directed otherwise. Check labs at regular intervals wither q 3 months or q 6 months based on previous levels of control. Chronic Pain Syndrome - pt has chronic pain - has been maintained on current medications , has not sought out other medications, only uses PRN pain medications as directed, and understands the consequences of over-medication. 03/06/2017 Appointment: Sandy Casanova WPtel[facility] [phone] [id number] [place] (15 min) Moderate 03/06/2017 Patient Education: Patient Medication Summary Completed 03/06/2017 Patient Education: Smoking and Tobacco Addiction Completed 03/06/2017 Visit Plan: Bronchitis - acute case of bronchitis identified. Pt has been given antibiotics and pt has been instructed to call if symptoms are not improved, or if symptoms acutely worsen. Tick bite - Pt has tick panel and labs ordered - will send RX - pt is to notify clinic with any changes, questions, or concerns. 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 Sumner. 12/13/2016 Appointment: Luis oMntano [facility]el[facility] [phone] [id number] (15 min) Moderate 12/13/2016 Patient Education: Patient Medication Summary Completed 12/13/2016 Patient Education: Smoking and Tobacco Addiction Completed 12/13/2016 Patient Education: Obesity Completed 12/13/2016 Visit Plan: Hypertension - well controlled - continue with current medications, continue with no added salt diet. Pt has been encouraged to exercise daily. The pt has been advised to call the office if there are any acute concerns about change in blood pressure readings at home. Hypothyroidism - pt with chronic hypothyroidism, continue with current medication, will monitor pt to signs or symptoms of lack of adequate supplementation. Pt is to continue with current dose of medication unless directed otherwise. Check labs at regular intervals wither q 3 months or q 6 months based on previous levels of control. Arthritis- occasionally uncontrolled symptoms- recommend pt to take antiinflammatory as directed for pain control. Use tylenol for break through pain symptoms. 11/01/2016 Appointment: Sandy Casanova WPtel[facility] [phone] [id number] (15 min) Moderate 11/01/2016 Patient Education: Patient Medication Summary Completed 11/01/2016 Patient Education: Smoking and Tobacco Addiction Completed 11/01/2016 Care Plan: [facility] [id number] Pending 11/01/2016 Visit Plan: Hypertension - well controlled - continue with current medications, continue with no added salt diet. Pt has been encouraged to exercise daily. The pt has been advised to call the office if there are any acute concerns about change in blood pressure readings at home. Hypothyroidism - pt with chronic hypothyroidism, continue with current medication, will monitor pt to signs or symptoms of lack of adequate supplementation. Pt is to continue with current dose of medication unless directed otherwise. Check labs at regular intervals wither q 3 months or q 6 months based on previous levels of control. Depression - recommended counseling - pt not interested at this time - she has situational depression - no longer happy with home life and cannot figure out how to be happy with her . 07/04/2016 Appointment: Sandy Casanova WPtel: [phone] [id number] (15 min) Moderate 07/04/2016 Patient Education: Patient Medication Summary Completed 07/04/2016 Patient Education: Smoking and Tobacco Addiction Completed 07/04/2016 Visit Plan: Hypothyroidism - pt with chronic hypothyroidism , continue with current medication, will monitor pt to signs or symptoms of lack of adequate supplementation. Pt is to continue with current dose of medication unless directed otherwise. Check labs at regular intervals wither q 3 months or q 6 months based on previous levels of control. Chronic Depression and anxiety - the pt has symptoms of chronic anxiety and depression that have been fairly well controlled since the last office visit. The pt has expected periods of exacerbation with abatement of the symptoms with change in situational exposure. No change in current medications. Chronic Pain Syndrome - pt has chronic pain - has been maintained on current medications, has not sought out other medications, only uses PRN pain medications as directed, and understands the consequences of over-medication. 03/07/2016 Appointment: Sandy Casanova WPtel: [phone] [id number] (15 min) Moderate 03/07/2016 Patient Education: Patient Medication Summary Completed 03/07/2016 Patient Education: Smoking and Tobacco Addiction Completed 03/07/2016 Appointment: Sandy Casanova WPtel: [phone] [id number] (15 min) Moderate 02/08/2016 Visit Plan: Hypothyroidism - pt with chronic hypothyroidism , continue with current medication, will monitor pt to signs or symptoms of lack of adequate supplementation. Pt is to continue with current dose of medication unless directed otherwise. Check labs at regular intervals wither q 3 months or q 6 months based on previous levels of control. Iliotibial band syndrome- recommended use of anti-inflammatories and pt given handout on Iliotibial band exercises. Chronic Pain Syndrome - pt has chronic pain - has been maintained on current medications, has not sought out other medications, only uses PRN pain medications as directed, and understands the consequences of over-medication. Depression - pt has significant situational issues - she has a difficult relationship at home - recommended counseling. 01/06/2016 Appointment: Sandy Casanova WPtel: [phone] [id number] [employer] (15 min) Moderate 01/06/2016 Patient Education: Patient Medication Summary Completed 01/06/2016 Patient Education: Smoking and Tobacco Addiction Completed 01/06/2016 Visit Plan: Hypothyroidism - pt with chronic hypothyroidism , continue with current medication, will monitor pt to signs or symptoms of lack of adequate supplementation. Pt is to continue with current dose of medication unless directed otherwise. Check labs at regular intervals wither q 3 months or q 6 months based on previous levels of control. 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 Depression - uncontrolled - recommended pt to seek counseling - also recommended pt needs to break up the cymbalta and take 30mg in the morning and 60mg at bedtime. 09/07/2015 Patient Education: Patient Medication Summary Completed 09/07/2015 Patient Education: Smoking and Tobacco Addiction Completed 09/07/2015 Appointment: Lab Draw 08/03/2015 Appointment: Lab Draw 08/03/2015 Patient Education: Patient Medication Summary Completed 08/03/2015 Visit Plan: Hypothyroidism - pt with chronic hypothyroidism , continue with current medication, will monitor pt to signs or symptoms of lack of adequate supplementation. Pt is to continue with current dose of medication unless directed otherwise. Check labs at regular intervals wither q 3 months or q 6 months based on previous levels of control. Chronic Depression and anxiety - the pt has symptoms of chronic anxiety and depression that have been fairly well controlled since the last office visit. The pt has expected periods of exacerbation with abatement of the symptoms with change in situational exposure. No change in current medications. Esophageal Reflux - the patient has been counseled against excessive intake of caffeine, spicy foods, peppermint, and cinnamon - all of which can exacerbate esophageal reflux. The patient is to take medications as prescribed and call the office if the symptoms are not improving. Chronic Pain Syndrome - pt has chronic pain - has been maintained on current medications, has not sought out other medications, only uses PRN pain medications as directed, and understands the consequences of over-medication. 12/01/2014 Appointment: Sandy Casanova WPtel: [phone] [id number] [place] (S) New Patient 12/01/2014 Patient Education: Patient Medication Summary Completed 12/01/2014 Instructions Comment . Hypertension - well controlled - continue with current medications, continue with no added salt diet. Pt has been encouraged to exercise daily. The pt has been advised to call the office if there are any acute concerns about change in blood pressure readings at home. Hypothyroidism - pt with chronic hypothyroidism, continue with current medication, will monitor pt to signs or symptoms of lack of adequate supplementation. Pt is to continue with current dose of medication unless directed otherwise. Check labs at regular intervals wither q 3 months or q 6 months based on previous levels of control. Depression - recommended counseling - pt not interested at this time - she has situational depression - no longer happy with home life and cannot figure out how to be happy with her . . Well Adult - pt was counseled about diet, exercise, and encouraged to follow a heart healthy diet and increase activity level. The patient was instructed to RTC yearly for well adult exams and PRN for acute illnesses. The pt was also instructed to have yearly labs for check of cholesterol, thyroid, chem panel, CBC, and renal functioning. Hypertension - well controlled - continue with current medications, continue with no added salt diet. Pt has been encouraged to exercise daily. The pt has been advised to call the office if there are any acute concerns about change in blood pressure readings at home. Hypothyroidism - pt with chronic hypothyroidism, continue with current medication, will monitor pt to signs or symptoms of lack of adequate supplementation. Pt is to continue with current dose of medication unless directed otherwise. Check labs at regular intervals wither q 3 months or q 6 months based on previous levels of control. Chronic Pain Syndrome - pt has chronic pain - has been maintained on current medications, has not sought out other medications, only uses PRN pain medications as directed, and understands the consequences of over-medication. . Well Adult - pt was counseled about diet, exercise, and encouraged to follow a heart healthy diet and increase activity level. The patient was instructed to RTC yearly for well adult exams and PRN for acute illnesses. The pt was also instructed to have yearly labs for check of cholesterol, thyroid, chem panel, CBC, and renal functioning. Hypertension - well controlled - continue with current medications, continue with no added salt diet. Pt has been encouraged to exercise daily. The pt has been advised to call the office if there are any acute concerns about change in blood pressure readings at home. Hypothyroidism - pt with chronic hypothyroidism, continue with current medication, will monitor pt to signs or symptoms of lack of adequate supplementation. Pt is to continue with current dose of medication unless directed otherwise. Check labs at regular intervals wither q 3 months or q 6 months based on previous levels of control. Chronic Pain Syndrome - pt has chronic pain - has been maintained on current medications, has not sought out other medications, only uses PRN pain medications as directed, and understands the consequences of over-medication. . Hypothyroidism - pt with chronic hypothyroidism, continue with current medication, will monitor pt to signs or symptoms of lack of adequate supplementation. Pt is to continue with current dose of medication unless directed otherwise. Check labs at regular intervals wither q 3 months or q 6 months based on previous levels of control. Chronic Depression and anxiety - the pt has symptoms of chronic anxiety and depression that have been fairly well controlled since the last office visit. The pt has expected periods of exacerbation with abatement of the symptoms with change in situational exposure. No change in current medications. Chronic Pain Syndrome - pt has chronic pain - has been maintained on current medications, has not sought out other medications, only uses PRN pain medications as directed, and understands the consequences of over-medication. . Hypothyroidism - pt with chronic hypothyroidism, continue with current medication, will monitor pt to signs or symptoms of lack of adequate supplementation. Pt is to continue with current dose of medication unless directed otherwise. Check labs at regular intervals wither q 3 months or q 6 months based on previous levels of control. Chronic Depression and anxiety - the pt has symptoms of chronic anxiety and depression that have been fairly well controlled since the last office visit. The pt has expected periods of exacerbation with abatement of the symptoms with change in situational exposure. No change in current medications. Esophageal Reflux - the patient has been counseled against excessive intake of caffeine, spicy foods, peppermint, and cinnamon - all of which can exacerbate esophageal reflux. The patient is to take medications as prescribed and call the office if the symptoms are not improving. Chronic Pain Syndrome - pt has chronic pain - has been maintained on current medications, has not sought out other medications, only uses PRN pain medications as directed, and understands the consequences of over-medication. . Bronchitis - acute case of bronchitis identified. Pt has been given antibiotics and pt has been instructed to call if symptoms are not improved, or if symptoms acutely worsen. Tick bite - Pt has tick panel and labs ordered - will send RX - pt is to notify clinic with any changes, questions, or concerns. 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 Sumner. 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 break up the cymbalta and take 30mg in the morning and 60mg at bedtime. . Hypothyroidism - pt with chronic hypothyroidism, continue with current medication, will monitor pt to signs or symptoms of lack of adequate supplementation. Pt is to continue with current dose of medication unless directed otherwise. Check labs at regular intervals wither q 3 months or q 6 months based on previous levels of control. 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 Depression - uncontrolled - recommended pt to seek counseling - also recommended pt needs to break up the cymbalta and take 30mg in the morning and 60mg at bedtime. . Hypertension - well controlled - continue with current medications, continue with no added salt diet. Pt has been encouraged to exercise daily. The pt has been advised to call the office if there are any acute concerns about change in blood pressure readings at home. Hypothyroidism - pt with chronic hypothyroidism, continue with current medication, will monitor pt to signs or symptoms of lack of adequate supplementation. Pt is to continue with current dose of medication unless directed otherwise. Check labs at regular intervals wither q 3 months or q 6 months based on previous levels of control. Chronic Depression and anxiety - the pt has symptoms of chronic anxiety and depression that have been fairly well controlled since the last office visit. The pt has expected periods of exacerbation with abatement of the symptoms with change in situational exposure. No change in current medications. Chronic Pain Syndrome - pt has chronic pain - has been maintained on current medications, has not sought out other medications, only uses PRN pain medications as directed, and understands the consequences of over-medication. . Hypertension - well controlled - continue with current medications, continue with no added salt diet. Pt has been encouraged to exercise daily. The pt has been advised to call the office if there are any acute concerns about change in blood pressure readings at home. Hypothyroidism - pt with chronic hypothyroidism, continue with current medication, will monitor pt to signs or symptoms of lack of adequate supplementation. Pt is to continue with current dose of medication unless directed otherwise. Check labs at regular intervals wither q 3 months or q 6 months based on previous levels of control. Arthritis- occasionally uncontrolled symptoms- recommend pt to take antiinflammatory as directed for pain control. Use tylenol for break through pain symptoms. . Hypothyroidism - pt with chronic hypothyroidism, continue with current medication, will monitor pt to signs or symptoms of lack of adequate supplementation. Pt is to continue with current dose of medication unless directed otherwise. Check labs at regular intervals wither q 3 months or q 6 months based on previous levels of control. Iliotibial band syndrome- recommended use of anti-inflammatories and pt given handout on Iliotibial band exercises. Chronic Pain Syndrome - pt has chronic pain - has been maintained on current medications, has not sought out other medications, only uses PRN pain medications as directed, and understands the consequences of over-medication. Depression - pt has significant situational issues - she has a difficult relationship at home - recommended counseling. Dr. Willy Echevarria - hand specialist in [place]. Hypertension - well controlled - continue with current medications, continue with no added salt diet. Pt has been encouraged to exercise daily. The pt has been advised to call the office if there are any acute concerns about change in blood pressure readings at home. Chronic Depression and anxiety - the pt has symptoms of chronic anxiety and depression that have been fairly well controlled since the last office visit. The pt has expected periods of exacerbation with abatement of the symptoms with change in situational exposure. No change in current medications. Significant marital issues - I have recommended that she needs to have discussions with her top lift nailer about her possible marital issues. Hypothyroidism - pt with chronic hypothyroidism, continue with current medication, will monitor pt to signs or symptoms of lack of adequate supplementation. Pt is to continue with current dose of medication unless directed otherwise. Check labs at regular intervals wither q 3 months or q 6 months based on previous levels of control. Chronic Pain Syndrome - pt has chronic pain - has been maintained on current medications, has not sought out other medications, only uses PRN pain medications as directed, and understands the consequences of over-medication.
[2018-04-26] MEDS ORDERED: LACTATED RINGERS 1,000 ML IV PRN (07:04)
--- OUTSIDE RECORDS SUMMARY | 2018-04-26 07:05 | XMS REPORT | CCD ---
Author Author [facility] Organization [facility] Address [address] [place] [address] Phone Care Team Providers Care Nurse Research Name Role Phone PP Unavailable CCM Unavailable Summary Purpose Interface Exchange Insurance Providers Payer name Policy type / Coverage type Covered green party ID Effective Begin Date Effective End Date [facility] [id number] Unknown Family history Father Diagnosis Age At [...] Unknown Kaveh 11/01/2016 Employment Unknown Currently employed [employer] 01/06/[address]: 87013007 Current every day smoker 01/06/2016 Number of cigarettes/day Unknown 10 ( Half a pack) 01/06/2016 Number of children Unknown 2 12/01/[address]: 121225286 Never drinks alcohol 12/01/2014 Allergies, Adverse Reactions, Alerts Allergies, Adverse Reactions, Alerts data not found Past Medical History Illness Codes Condition Status Onset Date Resolved Date Atrophy of thyroid (acquired) ICD-9: 244.8 ICD-10: E03.4 Active 03/06/2016 Unknown Essential (primary) hypertension ICD-9: 401.1 ICD-10: [...] (acquired) ICD-9: 244.8 ICD-10: E03.4 03/06/2016 Active Essential (primary) hypertension ICD-9: 401.1 ICD-10: [...] Start Date Stop Date Status Fill Instructions gabapentin 800 mg tablet RxNorm: 131852 1 Tablet(s) PO BID 05/03/2018 Active hydrocodone 10 mg-acetaminophen 325 mg tablet RxNorm: 068096 1 Tablet(s) PO QID as needed pain 07/13/2017 08/11/2017 Active meloxicam 15 mg tablet RxNorm: 858502 TAKE 1 TABLET BY MOUTH DAILY 06/19/2017 06/13/2018 Active - Ref: [id number] acyclovir 400 mg tablet RxNorm: 053802 TAKE 1 TABLET BY MOUTH DAILY 06/19/2017 09/16/2017 Active - Ref: [id number] oxybutynin chloride ER 15 mg tablet,extended release 24 hr RxNorm: 310525 TAKE 1 TABLET BY MOUTH DAILY 06/19/20172017 Active - Ref: [id number] hydrocodone 10 mg-acetaminophen 325 mg tablet RxNorm: 027866 1 Tablet(s) PO QID as needed pain 04/30/2017 05/29/2017 Inactive dexlansoprazole 60 mg capsule,biphase delayed release RxNorm: 318570 1 Capsule(s) PO BID 03/06/2017 07/03/2017 Inactive oxycodone-acetaminophen 5 mg-325 mg tablet RxNorm: 5662515 1to 2 Tablet(s) PO Q4H as needed 02/05/2017 No Stop Date Active meloxicam 15 mg tablet RxNorm: 512388 Take 1 tablet by mouth daily 01/12/2017 06/18/2017 Inactive - First Attempt Ref: [id number] doxycycline hyclate 100 mg capsule RxNorm: 8516044 1 Capsule(s) PO BID 12/13/2016 12/26/2016 Inactive Coreg 6.25 mg tablet RxNorm: 570168 Tablet(s) Take 1 tablet by mouth two times daily 11/24/2016 11/18/2017 Active levothyroxine 75 mcg tablet RxNorm: 728955 1 Tablet(s) PO daily take 30 minutes prior to taking other medications or eating 11/22/2016 11/16/2017 Active Coreg 6.25 mg tablet RxNorm: 620906 Take 1 tablet by mouth two times daily 11/21/2016 11/23/2016 Inactive - Ref: [id number] levothyroxine 50 mcg tablet RxNorm: 577731 Take 1 tablet by mouth daily 11/21/2016 11/21/2016 Inactive - Ref: [id number] acyclovir 400 mg tablet RxNorm: 300606 Take 1 tablet by mouth daily Rx written by ANTONINO: LUIS MONTANO 11/21/2016 06/18/2017 Inactive - Ref: [id number] Dexilant 60 mg capsule, delayed release RxNorm: 526665 1 Capsule(s) PO BID 11/01/2016 01/24/2018 Active estradiol 1 mg tablet RxNorm: 031994 1 Tablet(s) PO daily 201601/24/2018 Active fluoxetine 40 mg capsule RxNorm: 841621 1 Capsule(s) PO daily 11/01/2016 01/24/2018 Active levothyroxine 75 mcg tablet RxNorm: 764637 1 Tablet(s) PO daily take 30 minutes prior to taking other medications or eating 11/01/2016 11/21/2016 Inactive estradiol 1 mg tablet RxNorm: 062823 1 Tablet(s) PO daily 201610/31/2016 Inactive oxybutynin chloride ER 15 mg tablet,extended release 24 hr RxNorm: 260610 1 Tablet (s) PO daily 11/01/2016 06/18/2017 Inactive gabapentin 800 mg tablet RxNorm: 942867 1 Tablet(s) PO UD 1/2 pill in morning and 1 pill at bedtime 11/01/2016 07/12/2017 Inactive meloxicam 15 mg tablet RxNorm: 352148 1 Tablet(s) PO daily Take 1 tablet by mouth daily 11/01/2016 01/11/2017 Inactive - First Attempt Ref: [id number] acyclovir 400 mg tablet RxNorm: 579400 1 Tablet(s) PO daily 03/201711/20/2016 Inactive Coreg 6.25 mg tablet RxNorm: 315140 1 Tablet(s) PO BID 201611/20/2016 Inactive meloxicam 15 mg tablet RxNorm: 131773 Take 1 tablet by mouth daily 07/24/2016 10/31/2016 Inactive - First Attempt Ref: [id number] Questran Light 4 gram oral powder RxNorm: 7595066 1 PO BID as needed 1 PACKET PO BID NEEDED 07/19/2016 10/11/2017 Active Different instructions!Patient requests 90 days supply oxybutynin chloride ER 15 mg tablet,extended release 24 hr RxNorm: 373167 1 Tablet (s) PO daily 07/19/2016 10/31/2016 Inactive fluoxetine 40 mg capsule RxNorm: 300536 1 Capsule(s) PO daily 07/19/2016 10/31/2016 Inactive gabapentin 800 mg tablet RxNorm: 608011 1 Tablet(s) PO UD 1/2 pill in morning and 1 pill at bedtime 07/19/2016 10/31/2016 Inactive fluoxetine 40 mg capsule RxNorm: 494125 1 Capsule(s) PO daily 07/04/2016 07/18/2016 Inactive oxybutynin chloride ER 15 mg tablet,extended release 24 hr RxNorm: 716260 1 Tablet (s) PO daily 07/04/2016 07/18/2016 Inactive Questran Light 4 gram oral powder RxNorm: 2330981 1 PO BID as needed 1 PACKET PO BID NEEDED 07/04/2016 07/18/2016 Inactive Different instructions!Patient requests 90 days supply gabapentin 800 mg tablet RxNorm: 164781 1 Tablet(s) PO UD 1/2 pill in morning and 1 pill at bedtime 07/04/2016 07/18/2016 Inactive Questran Light 4 gram oral powder RxNorm: 5716827 1 PACKET PO TID NEEDED 05/24/2016 10/20/2016 Inactive Patient requests 90 days supply Questran Light 4 gram oral powder RxNorm: 9265668 1 PACKET PO BID NEEDED 05/24/2016 07/03/2016 Inactive Different instructions!Patient requests 90 days supply Questran Light 4 gram oral powder RxNorm: 4123663 1 packet PO BID as needed 05/23/2016 05/23/2016 Inactive Different instructions! Questran Light 4 gram oral powder RxNorm: 2162162 1 packet PO TID as needed 05/23/2016 05/22/2016 Inactive Questran Light 4 gram oral powder RxNorm: 8491918 1 packet PO TID as needed 03/07/2016 05/22/2016 Inactive gabapentin 800 mg tablet RxNorm: 137580 1 Tablet(s) PO UD 1/2 pill in morning and 1 pill at bedtime 03/07/2016 07/03/2016 Inactive meloxicam 15 mg tablet RxNorm: 767220 1 Tablet(s) PO daily 07/03/2016 Inactive duloxetine 60 mg capsule,delayed release RxNorm: 425068 1 Capsule(s) PO QHS take in additon to 30mg pills 01/06/20162015 Inactive levothyroxine 75 mcg tablet RxNorm: 615593 1 Tablet(s) PO daily take 30 minutes prior to taking other medications or eating 01/06/2016 07/03/2016 Inactive hydrocodone 10 mg-acetaminophen 325 mg tablet RxNorm: 310231 1 Tablet(s) PO QID as needed pain 01/06/2016 02/04/2016 Inactive meloxicam 15 mg tablet RxNorm: 357170 1 Tablet(s) PO daily 01/05/2016 Inactive levothyroxine 75 mcg tablet RxNorm: 860049 1 Tablet(s) PO daily take 30 minutes prior to taking other medications or eating 01/06/2016 01/05/2016 Inactive fluoxetine 10 mg capsule RxNorm: 831198 1 Capsule(s) PO daily 01/06/2016 07/03/2016 Inactive gabapentin 300 mg capsule RxNorm: 741781 1 Capsule(s) PO BID 01/05/2016 Inactive take one capsule by mouth every 6 hours as needed and 1 capsule bymouth every night at bedtime gabapentin 300 mg capsule RxNorm: 675467 1 Capsule(s) PO QAM and 2 Capsules PO QPM 01/06/2016 03/06/2016 Inactive meloxicam 15 mg tablet RxNorm: 018276 1 Tablet(s) PO daily 01/05/2016 Inactive duloxetine 30 mg capsule,delayed release RxNorm: 657012 Capsule(s) 1 CAPSULE(S) PO QHS 09/21/2015 06/19/2016 Inactive Coreg 6.25 mg tablet RxNorm: 103845 1 Tablet(s) PO BID 201510/31/2016 Inactive fluoxetine 20 mg capsule RxNorm: 235277 1 Capsule(s) PO daily 09/21/2015 01/05/2016 Inactive acyclovir 400 mg tablet RxNorm: 970839 1 Tablet(s) PO daily 10/31/2016 Inactive levothyroxine 50 mcg tablet RxNorm: 116669 1 Tablet(s) PO daily 09/21/2015 01/05/2016 Inactive Cipro 500 mg tablet RxNorm: 165635 1 Tablet(s) PO BID 201508/02/2015 Inactive Cipro 500 mg tablet RxNorm: 809849 1 Tablet(s) PO BID 201508/09/2015 Inactive Diflucan 150 mg tablet RxNorm: 825210 1 Tablet(s) PO daily take after you finish cipro 08/03/2015 08/02/2015 Inactive Diflucan 150 mg tablet RxNorm: 740943 1 Tablet(s) PO daily take after you finish cipro 08/03/2015 08/09/2015 Inactive Coreg 6.25 mg tablet RxNorm: 506099 1 Tablet(s) PO BID 201409/20/2015 Inactive levothyroxine 50 mcg tablet RxNorm: 760124 1 Tablet(s) PO daily 05/19/2015 09/20/2015 Inactive fluoxetine 20 mg capsule RxNorm: 495381 1 Capsule(s) PO daily 03/26/2015 09/20/2015 Inactive duloxetine 30 mg capsule,delayed release RxNorm: 011475 1 CAPSULE(S) PO QHS 03/22/2015 09/20/2015 Inactive doxycycline hyclate 100 mg capsule RxNorm: 4585797 1 Capsule(s) PO BID 02/25/2015 03/06/2015 Inactive doxycycline hyclate 100 mg capsule RxNorm: 1981243 1 Capsule(s) PO BID 02/25/2015 02/24/2015 Inactive gabapentin 300 mg capsule RxNorm: 282740 1 Capsule(s) PO BID 01/05/2016 Inactive take one capsule by mouth every 6 hours as needed and 1 capsule bymouth every night at bedtime meloxicam 15 mg tablet RxNorm: 376293 1 Tablet(s) PO daily 06/201409/20/2015 Inactive duloxetine 30 mg capsule,delayed release RxNorm: 018587 1 Capsule(s) PO QHS 12/23/2014 03/21/2015 Inactive duloxetine 30 mg capsule,delayed release RxNorm: 402922 1 Capsule(s) PO QHS No Start Date 12/22/2014 Inactive oxybutynin chloride ER 15 mg tablet,extended release 24 hr RxNorm: 255868 1 Tablet (s) PO daily No Start Date 01/05/2016 Inactive lysine 500 mg tablet RxNorm: 031410 1 Tablet(s) PO daily No Start Date 01/05/2016 Inactive cholecalciferol (vitamin D3) 2,000 unit capsule RxNorm: 813036 2 Capsule(s) PO daily No Start Date 09/06/2015 Inactive oxycodone-acetaminophen 5 mg-325 mg tablet RxNorm: 3497933 1to 2 Tablet(s) PO Q4H as needed No Start Date 01/05/2016 Inactive acyclovir 400 mg tablet RxNorm: 780089 1 Tablet(s) PO daily No Start Date 09/20/2015 Inactive dexlansoprazole 60 mg capsule,biphase delayed release RxNorm: 522952 1 Capsule(s) PO BID No Start Date 10/31/2016 Inactive fluoxetine 20 mg capsule RxNorm: 201881 1 Capsule(s) PO daily No Start Date 03/25/2015 Inactive gabapentin 300 mg capsule RxNorm: 926618 1 Capsule(s) PO BID No Start Date 12/22/2014 Inactive meloxicam 15 mg tablet RxNorm: 517079 1 Tablet(s) PO daily No Start Date 12/22/2014 Inactive levothyroxine 50 mcg tablet RxNorm: 627732 1 Tablet(s) PO daily No Start Date 05/18/2015 Inactive duloxetine 60 mg capsule,delayed release RxNorm: 324534 1 Capsule(s) PO QHS No Start Date 09/20/2015 Inactive estradiol 1 mg tablet RxNorm: 993530 1 Tablet(s) PO daily No Start Date 10/31/2016 Inactive multivitamin with iron tablet RxNorm: 1 Tablet(s) PO daily No Start Date 09/06/2015 Inactive Medication Administered No Medication Administered data Immunizations Vaccine Codes Date Status Influenza CVX: 141 04/30/2017 completed Influenza CVX: 141 03/25/2014 completed Tetanus, Diptheria, Pertussis CVX: 113 completed Tetanus/Diptheria CVX: 113 06/25/1997 completed Assessments Condition Codes Effective Dates Major depressive disorder, recurrent, moderate ICD-10: F33.1 ICD-9: 296.32 07/13/2017 Other chronic pain ICD-10: G89.29 ICD-9: 338.29 07/13/2017 Essential (primary) hypertension ICD-10: I10 ICD-9: 401.1 07/13/2017 Atrophy of thyroid (acquired) ICD-10: E03.4 ICD-9: 244.8 07/13/2017 VACCIN FOR INFLUENZA ICD-10: Z23 ICD-9: V04.81 [...] Reason For Visit Effective Dates Notes hypothyroid 07/13/2017 vaccination against influenza 04/30/2017 hypothyroid 03/06/2017 thumb and hand pain 12/13/2016 hypothyroid 11/01/2016 hypothyroid 07/04/2016 hypothyroid 03/07/2016 hypothyroid 01/06/2016 gastroesophageal reflux 09/07/2015 gastroesophageal reflux 12/01/2014 Results Observation Observation Code Item Item Code Result Date Hepatitis Panel (Abc) 23907 HEPATITIS B SURFACE AG . 05/2017 Hepatitis Panel (Abc) 06630 HEPATITIS B SURFACE AG NEGATIVE 10/04/2016 Hepatitis Panel (Abc) 83324 HEPATITIS B CORE AB, IGM . Hepatitis Panel (Abc) 68434 HEPATITIS B CORE AB, IGM NEGATIVE 10/04/2016 Hepatitis Panel (Abc) 95446 HEPATITIS A AB, IGM . 2016 Hepatitis Panel (Abc) 70549 HEPATITIS A AB, IGM NEGATIVE 05/2017 Hepatitis Panel (Abc) 54872 HEPATITIS C ANTIBODY . 04/12/ 2017 Hepatitis Panel (Abc) 96658 HEPATITIS C ANTIBODY NEGATIVE 05/2017 Comp Metabolic Vdb946 NA 137 mEq/L 03/07/2016 Comp Metabolic Jjm505 K 3.9 mEq/L 03/07/2016 Comp Metabolic Wtn620 CL 103 mEq/L 03/07/2016 Comp Metabolic Oja853 CO2 27.0 mEq/L 03/07/2016 Comp Metabolic Vak066 ANION GAP 11 03/07/2016 Comp Metabolic Kxe477 GLUCOSE 116 mg/dL 03/07/2016 Comp Metabolic Grt625 Creat 0.7 mg/dL 03/07/2016 Comp Metabolic Lzr784 eGFR 98 ml/min/1.73m2 03/07/2016 Comp Metabolic Rlw983 BUN 20 mg/dL 03/07/2016 Comp Metabolic Xvz174 B/C Ratio 30.3 Ratio 03/07/2016 Comp Metabolic Zbq501 CALCIUM 9.3 mg/dL 03/07/2016 Comp Metabolic Lnf842 ALK PHOS 87 U/L 03/07/2016 Comp Metabolic Njn265 AST(SGOT) 14 U/L 03/07/2016 Comp Metabolic Jtr112 ALT(SGPT) 10 U/L 03/07/2016 Comp Metabolic Jnv052 BILI T 0.3 mg/dL 03/07/2016 Comp Metabolic Hri915 ALBUMIN 4.3 g/dL 03/07/2016 Comp Metabolic Bvg382 TPRO 6.4 g/dL 03/07/2016 Comp Metabolic Xfk566 GLOB 2.1 g/dL 03/07/2016 Comp Metabolic Sox850 A/G Ratio 2.0 Ratio 03/07/2016 Comp Metabolic Lyi671 Osmo 277 mOsmo 03/07/2016 Cbc With Differential [...] 29.8 pg 03/07/2016 Cbc With Differential Ord2 [place]% 9.5 % 03/07/2016 Cbc With Differential Ord2 [...] 2.77 K/ul 03/07/2016 Cbc With Differential Ord2 [place] ABS# 0.8 K/ul 03/07/2016 Cbc With Differential Ord2 Eos ABS# 0.2 K/ul 03/07/2016 Cbc With Differential Ord2 Baso ABS# 0.0 K/ul 03/07/2016 Tsh Ord6 hTSH II 0.93 uIU/mL 03/07/2016 T4 Ord4 T4 6.0 ug/dL 03/07/2016 Free T4 Xkh407 FREE T4 0.65 ng/dL 08/27/2015 Comp Metabolic Fwv602 NA 137 mEq/L 08/27/2015 Comp Metabolic Fnc122 K 4.5 mEq/L 08/27/2015 Comp Metabolic Qqq301 CL 104 mEq/L 08/27/2015 Comp Metabolic Eon722 CO2 26.0 mEq/L 08/27/2015 Comp Metabolic Hoa831 ANION GAP 12 08/27/2015 Comp Metabolic Olj358 GLUCOSE 101 mg/dL 08/27/2015 Comp Metabolic Zkr073 Creat 0.5 mg/dL 08/27/2015 Comp Metabolic Aom400 eGFR 124 ml/min/1.73m2 08/27/2015 Comp Metabolic Dxl552 BUN 16 mg/dL 08/27/2015 Comp Metabolic Brm323 B/C Ratio 29.6 Ratio 08/27/2015 Comp Metabolic Dek450 CALCIUM 9.1 mg/dL 08/27/2015 Comp Metabolic Egg635 ALK PHOS 79 U/L 08/27/2015 Comp Metabolic Oee828 AST(SGOT) 15 U/L 08/27/2015 Comp Metabolic Xah014 ALT(SGPT) 12 U/L 08/27/2015 Comp Metabolic Goc195 BILI T 0.7 mg/dL 08/27/2015 Comp Metabolic Zop957 ALBUMIN 4.2 g/dL 08/27/2015 Comp Metabolic Vjk025 TPRO 6.3 g/dL 08/27/2015 Comp Metabolic Wxu035 GLOB 2.1 g/dL 08/27/2015 Comp Metabolic Rhv077 A/G Ratio 2.0 Ratio 08/27/2015 Comp Metabolic Wzw148 Osmo 275 mOsmo 08/27/2015 Lipid Ord30 CHOL 259 mg/dL 08/27/2015 Lipid Ord30 HDL 50.0 mg/dl 08/27/2015 Lipid Ord30 TRIG 154 mg/dL 08/27/2015 Lipid Ord30 LDL 178 mg/dL 08/27/2015 Lipid Ord30 C/HDL 5.2 Ratio 08/27/2015 Cbc With Differential Ord2 WBC 6.02 K/ul 08/27/2015 Cbc With Differential Ord2 RBC 4.76 M/ul 08/27/2015 Cbc With Differential Ord2 HGB 14.0 g/dl 08/27/2015 Cbc With Differential Ord2 Neut% 55.1 % 08/27/2015 Cbc With Differential Ord2 HCT 43.3 % 08/27/2015 Cbc With Differential Ord2 Lymph% 29.1 % 08/27/2015 Cbc With Differential Ord2 MCV 91.0 fl 08/27/2015 Cbc With Differential Ord2 [place]% 12.5 % 08/27/2015 Cbc With Differential Ord2 MCH 29.4 pg 08/27/2015 Cbc With Differential Ord2 Eos% 3.0 % 08/27/2015 Cbc With Differential Ord2 MCHC 32.3 pg 08/27/2015 Cbc With Differential Ord2 Baso% 0.3 % 08/27/2015 Cbc With Differential Ord2 PLT 279 K/ul 08/27/2015 Cbc With Differential Ord2 Neut ABS# 3.32 K/ul 08/27/2015 Cbc With Differential Ord2 RDW 13.7 % 08/27/2015 Cbc With Differential Ord2 Lymph ABS# 1.75 K/ul 08/27/2015 Cbc With Differential Ord2 [place] ABS# 0.8 K/ul 08/27/2015 Cbc With Differential Ord2 Eos ABS# 0.2 K/ul 08/27/2015 Cbc With Differential Ord2 Baso ABS# 0.0 K/ul 08/27/2015 Cbc With Differential Ord2 New Analyzer Notice Please note new ref ranges starting 07-07-2015 due to implemntation of new five part differential hematolgy analyzer. 08/27/2015 Tsh Ord6 hTSH II 0.39 uIU/mL 08/27/2015 Culture Urine [id number] URINE CULTURE SEE NOTES 08/06/2015 Culture Urine [id number] Continued Results 08/06/2015 Urine Culture Ucult Complete >100,000 col/ml aerobic growth sent to ref lab 08/04/2015 Review of Systems System Result Effective Dates Constitutional No chills 07/13/2017 Constitutional fatigue 07/13/2017 [...] NO PRSV 4 WEI 3 YRS+ CPT-4: 34384 04/30/2017 IMMUNIZATION ADMIN CPT -4: 57191 04/30/2017 TOBACCO-USE ORACLE ANALYST 3-[address]: 620378235 CPT-4: G0436 03/06/2017 URINALYSIS NONAUTO W/O SCOPE CPT-4: 29013 03/07/2016 URINALYSIS NONAUTO W/O SCOPE CPT-4: 66337 08/03/2015 Vital Signs Date Vital 07/13/2017 Blood Pressure 1: 126/82 Code : 8480-6 BMI: 23.7 Code : 10730-0 Heart Rate 1 : 80 bpm Height: 5'4" SpO2: 97% Weight: 138 lbs 03/06/2017 Blood Pressure 1: 120/76 Code : 8480-6 BMI: 23.3 Code : 79580-0 Heart Rate 1 : 79 bpm Height: 5'4" SpO2: 97% Weight: 136 lbs 12/13/2016 Blood Pressure 1: 132/80 Code : 8480-6 BMI: 23.3 Code : 72049-2 Heart Rate 1 : 88 bpm Height: 5'4" SpO2: 97% Weight: 136 lbs 11/01/2016 Blood Pressure 1: 128/76 Code : 8480-6 BMI: 23.5 Code : 81203-9 Heart Rate 1 : 77 bpm Height: 5'4" SpO2: 98% Weight: 137 lbs 07/04/2016 Blood Pressure 1: 132/86 Code : 8480-6 BMI: 22.8 Code : 39122-7 Heart Rate 1 : 71 bpm Height: 5'4" SpO2: 98% Weight: 133 lbs 03/07/2016 Blood Pressure 1: 118/70 Code : 8480-6 BMI: 23.0 Code : 88935-1 Heart Rate 1 : 76 bpm Height: 5'4" SpO2: 98% Temperature: 37.1 (C) / 98.7 (F) Weight: 134 lbs 01/06/2016 Blood Pressure 1: 130/78 Code : 8480-6 BMI: 23.7 Code : 58029-3 Heart Rate 1 : 76 bpm Height: 5'4" SpO2: 98% Weight: 138 lbs 09/07/2015 Blood Pressure 1: 118/78 Code : 8480-6 BMI: 24.7 Code : 55415-4 Heart Rate 1 : 81 bpm Height: 5'4" SpO2: 97% Weight: 144 lbs 12/01/2014 Blood Pressure 1: 145/70 Code : 8480-6 BMI: 24.9 Code : 14414-9 Heart Rate 1 : 88 bpm Height: [...] data Encounters Encounter Performer Location Codes Date ([id number]) 25062 EST. PATIENT, LEVEL IV Diagnosis: Essential (primary) hypertension[ICD10: I10] Diagnosis: Atrophy of thyroid (acquired)[ICD10: E03.4] Diagnosis: Major depressive disorder, recurrent, moderate[ICD10: F33.1] Diagnosis: Other chronic pain[ICD10: G89.29] Sandy Casanova MD, [facility] CPT-4: 27102 07/13/2017 ([id number]) 66054 EST. PATIENT, LEVEL IV Diagnosis: Essential (primary) hypertension[ICD10: I10] Diagnosis: Major depressive disorder, recurrent, moderate[ICD10: F33.1] Diagnosis: Atrophy of thyroid (acquired)[ICD10: E03.4] Diagnosis: Other chronic pain[ICD10: G89.29] Sandy Casanova MD, [facility] CPT-4: 53610 03/06/2017 [id number] EST. PATIENT, LEVEL IV Diagnosis: Acute bronchitis due to other specified organisms[ICD10: J20.8] Diagnosis: Pain in left hand[ICD10: M79.642] Diagnosis: Bitten or stung by nonvenomous insect and other nonvenomous arthropods, initial encounter[ICD10: W57.XXXA] Luis Casanova MD, [facility] CPT-4: 23044 12/13/2016 ([id number]) 78664 EST. PATIENT, LEVEL IV Diagnosis: Atrophy of thyroid (acquired)[ICD10: E03.4] Diagnosis: Major depressive disorder, recurrent, moderate[ICD10: F33.1] Diagnosis: Essential (primary) hypertension[ICD10: I10] Diagnosis: Encounter for screening mammogram for malignant neoplasm of breast[ ICD10: Z12.31] Sandy Casanova MD, [facility] CPT-4: 61541 11/01/2016 ([id number]) 33743 EST. PATIENT, LEVEL IV Diagnosis: Atrophy of thyroid (acquired)[ICD10: E03.4] Diagnosis: Major depressive disorder, recurrent, moderate[ICD10: F33.1] Diagnosis: Essential (primary) hypertension[ICD10: I10] Sandy Casanova MD, [facility] CPT-4: 50165 07/04/2016 ([id number]) 72511 EST. PATIENT, LEVEL IV Diagnosis: Atrophy of thyroid (acquired)[ICD10: E03.4] Diagnosis: Major depressive disorder, recurrent, moderate[ICD10: F33.1] Diagnosis: Other chronic pain[ICD10: G89.29] Diagnosis: Dysuria[ICD10: R30.0] Sandy Casanova MD, [facility] CPT-4: 70251 03/07/2016 ([id number]) 50049 EST. PATIENT, LEVEL IV Diagnosis: Hypothyroidism, unspecified[ICD10: E03.9] Diagnosis: Other chronic pain[ICD10: G89.29] Diagnosis: Major depressive disorder, recurrent, unspecified[ICD10: F33.9] Diagnosis: Iliotibial band syndrome, right leg[ICD10: M76.31] Sandy Casanova MD, [facility] CPT-4: 59145 01/06/2016 ([id number] 78528 EST. PATIENT, LEVEL IV Diagnosis: Hypothyroidism, unspecified[ICD10: E03.9] Diagnosis: Pain in right hip[ICD10: M25.551] Diagnosis: Lateral epicondylitis, right elbow[ICD10: M77.11] Diagnosis: Major depressive disorder, recurrent, unspecified[ICD10: F33.9] Sandy Casanova MD, [facility] CPT-4: 11424 09/07/2015 ([id number]) OFFICE VISIT, NEW - LEVEL 4 Diagnosis: ESOPHAGEAL REFLUX[ICD9: 530.81] Diagnosis: HYPOTHYROIDISM[ICD9: 244.9] Diagnosis: Chronic pain[ICD9: 338.29] Sandy Casanova MD, [facility] CPT- 4: 26617 12/01/2014 Plan of Care Planned Activity Notes Codes Status Date Patient Education: Patient Medication Summary Completed 07/13/2017 Appointment: Sandy Casanova WPtel: [address] [place], [place] [phone] (15 min) Moderate 07/09/2017 Appointment: Injection 04/30/2017 Patient Education: Patient Medication Summary Completed 04/30/2017 Patient Education: Smoking and Tobacco Addiction Completed 04/30/2017 Appointment: Sandy Casanova WPtel: [address] [place], [place] [phone] (15 min) Moderate 03/06/2017 Patient Education: Patient Medication Summary Completed 03/06/2017 Patient Education: Smoking and Tobacco Addiction Completed 03/06/2017 Appointment: Luis Montano WPtel: [address] [place], [place] [phone] [place] (15 min) Moderate 12/13/2016 Patient Education: Patient Medication Summary Completed 12/13/2016 Patient Education: Smoking and Tobacco Addiction Completed 12/13/2016 Patient Education: Obesity Completed 12/13/2016 Appointment: Sandy Casanova WPtel: [phone] [facility] (15 min) Moderate 11/01/2016 Patient Education: Patient Medication Summary Completed 11/01/2016 Patient Education: Smoking and Tobacco Addiction Completed 11/01/2016 Care Plan: SCREENINGMAMMOGRAPHYDIGITAL [facility] : 32249-4 Pending 11/01/2016 Appointment: Sandy Casanova WPtel: [facility] [place] (15 min) Moderate 07/04/2016 Patient Education: Patient Medication Summary Completed 07/04/2016 Patient Education: Smoking and Tobacco Addiction Completed 07/04/2016 Appointment: Sandy Casanova WPtel: [facility] [place] (15 min) Moderate 03/07/2016 Patient Education: Patient Medication Summary Completed 03/07/2016 Patient Education: Smoking and Tobacco Addiction Completed 03/07/2016 Appointment: Sandy Casanova WPtel: [facility] [place] (15 min) Moderate 02/08/2016 Appointment: Sandy Casanova WPtel: [facility] [place] (15 min) Moderate 01/06/2016 Patient Education: Patient Medication Summary Completed 01/06/2016 Patient Education: Smoking and Tobacco Addiction Completed 01/06/2016 Patient Education: Patient Medication Summary Completed 09/07/2015 Patient Education: Smoking and Tobacco Addiction Completed 09/07/2015 Appointment: Lab Draw 08/03/2015 Appointment: Lab Draw 08/03/2015 Patient Education: Patient Medication Summary Completed 08/03/2015 Appointment: Sandy Casanova WPtel: [facility] [place] (S) New Patient 12/01/2014 Patient Education: Patient Medication Summary Completed 12/01/2014 Instructions No Instructions
--- OUTSIDE RECORDS SUMMARY | 2018-04-26 07:06 | XMS REPORT | Continuity of Care Document ---
Author Author Puja Flanagan RN [facility] Ambulatory Address [address] [place] [address] Phone Care Team Providers Care Brand Mgr Name Role Phone Marybel Figueroaserena TYLER Unavailable Payers Payer name Insurance type Covered alliance party ID Authorization(s) Unknown Problems Condition Effective Dates (start - stop) Clinical Status Loss of weight - New onset Thrush - Recurrent Pain in joint involving multiple sites - *Chronic Family History Family Member Diagnosis Age At Onset Status Unknown Social History Social History Element Description Quantity Unknown Allergies, Adverse Reactions, Alerts Substance Reaction Severity Status PENICILLINS fever/unconscious Unknown METOCLOPRAMIDE HCL severe anxiety Unknown DOMPERIDONE stomach pain (severe) Unknown Medications Medication Instructions Dosage Effective Dates (start - stop) Status Cymbalta 60 mg capsule,delayed release take 1 capsule (60MG) by oral route every day 60 MG - Active tramadol 50 mg tablet prn - Active carvedilol 6.25 mg tablet take 1 tablet (6.25MG) by oral route 2 times every day with food 6.25 MG - Active oxybutynin chloride ER 15 mg tablet,extended release 24 hr take 2 tablet (30MG ) by oral route every day 30 MG - Active meloxicam 15 mg tablet take 1 tablet (15MG) by oral route every day 15 MG - Active acyclovir 400 mg tablet take 1 tablet (400MG) by oral route 2 times every day 400 MG - Active nystatin 100,000 unit/mL oral suspension take 1 teaspoon ([id number]) by oral route 4 times every day [id number] UNITS - Active Tums 200 mg calcium (500 mg) chewable tablet - Active fluconazole 100 mg tablet take 1 tablet (100MG) by oral route every day 100 MG - Active estradiol 1 mg tablet take 1 tablet (1MG) by oral route every day 1 MG - Active omeprazole 40 mg capsule,delayed release take 1 capsule (40MG) by oral route every day before a meal 40 MG - Active ondansetron 8 mg disintegrating tablet take 1 tablet (8MG) by oral route every 8 hours for [address] on top of the tongue where it will dissolve, then swallow 8 MG - Active hydrocodone 10 mg-acetaminophen 325 mg tablet take 1 tablet by oral route every 4 - 6 hours as needed for pain 0 - Active Pepto-Bismol 262 mg/15 mL oral suspension - Active levothyroxine 50 mcg capsule take 1 capsule (50MCG) by oral route every day 50 MCG - Active multivitamin capsule - Active cholestyramine (bulk) powder - Active Dexilant 60 mg capsule, delayed release take 1 capsule (60MG) by oral route every day 60 MG - Active Immunizations Vaccine Date Status Comments Unknown Results Test Name Date and Time Measure Units Reference Range Abnormal Flag Comments Panel Description: CBC WBC 15:58:00 8.7 K/uL 4.8-10.8 RBC 15:58:00 4.39 M/uL 4.00-5.20 HGB 15:58:00 13.3 g/dl 12.0-16.0 HCT 15:58:00 40.1 % 37.0-47.0 MCV 15:58:00 91.3 fL 82.0-99.0 MCH 15:58:00 30.3 pg 27.0-32.0 MCHC 15:58:00 33.2 g/dL 32.0-36.0 RDW 15:58:00 13.2 % 11.5-14.5 MPV 15:58:00 9.5 fL 8.8-14.8 Platelet Count 15:58:00 308 K/uL 150-400 Immature Granulocytes 15:58:00 0.2 % 0.0-1.0 Absolute Neutrophils 15:58:00 5.00 THOUS 1.90-7.00 Absolute Lymphocytes 15:58:00 2.59 THOUS 0.80-3.30 Absolute Monocytes 15:58:00 0.90 THOUS 0.30-1.00 Absolute Eosinophils 15:58:00 0.16 THOUS 0.00-0.50 Absolute Basophils 15:58:00 0.03 THOUS 0.00-0.20 Neutrophils 15:58:00 58 % 51-75 Lymphocytes 15:58:00 30 % 20-46 Monocytes 15:58:00 10 % 4-11 Eosinophils 15:58:00 2 % 0-4 Basophils 15:58:00 0 % 0-2 Testing performed at [facility] Reference Lab [address] [place] [address] [employer]ine [employer] Operator Josr Arteaga MD Panel Description: Sedrate Sedimentation Rate 15:58:00 4 mm/hr 0-23 Testing performed at [facility] Reference Lab [facility] [address] [place] [address] Automatic [employer]ine Mixer Operator Josr Arteaga MD Panel Description: Chemistry Profile Glucose 15:58:00 87 mg/dL 70-99 BUN 15:58:00 13 mg/dL 10-20 Creatinine 15:58:00 0.64 mg/dL 0.57-1.11 Calcium 15:58:00 10.0 mg/dL 8.9-10.5 Sodium 15:58:00 140 mEq/L 135-144 Potassium 15:58:00 4.3 mEq/L 3.5-5.2 Chloride 15:58:00 103 mEq/L 99-111 CO2 15:58:00 29 mEq/L 22-31 Albumin 15:58:00 4.4 g/dL 3.5-5.0 Bilirubin Total 15:58:00 0.5 mg/dL 0.2-1.2 Alkaline Phosphatase 15:58:00 72 U/L 40-150 Protein 15:58:00 6.6 g/dL 6.4-8.3 ALT (SGPT) 15:58:00 18 U/L 0-55 AST (SGOT) 15:58:00 20 U/L 5-34 Anion Gap 15:58:00 8 3-20 Globulin 15:58:00 2.2 g/dL 1.8-4.0 Testing performed at [facility] Reference Lab [address] [place] [id number] Automatic [employer] Mixer Operator Josr Arteaga MD Panel Description: EGFR-[facility] eGFR 15:58:00 >60 mL/min >60 Multiply eGFR results by 1.21 for race.Testing performed at [facility] [address] [place] [id number] Automatic [employer] Mix[employer] Operator Josr Arteaga MD Panel Description: C-Reactive Ifyqvxc-UM-LUH C-Reactive Protein 15:58:00 <0.5 mg/dL <0.5 Testing performed at [facility] Reference Lab [address] [place] [id number] Automatic [employer] Mix[employer] Operator Josr Arteaga MD Panel Description: IGG-Subclasses 1-4-[facility] Total IgG 15:58:00 823 mg/dL Reference Range:767 - 1590Test Performed by:[address] [id number] Director: Tacho Amador III, M.D. IgG 1 15:58:00 347 mg/dL Reference Range:341 - 894Test Performed by:[address] [address]Ypvgsuukle Director: Tacho Amador III, M.D. IgG 2 15:58:00 301 mg/dL Reference Range:171 - 632Test Performed by:[facility] [place], [place] [address]Fzbjtrejtu Director: Tacho Amador III, M.D. IgG 3 15:58:00 64.6 mg/dL Reference Range:18.4 - 106.0Test Performed by:[address] [id number] Director: Tacho Amador III, M.D. IgG 4 15:58:00 11.6 mg/dL Reference Range:2.4 - 121.0Test Performed by:[facility] [place], [place] [address]Pqktithehc Director: Tacho Amador III, M.D.Testing performed at [facility] [address] [facility] [address] Automatic Brine Mixer Operator Tacho Amador MD Panel Description: Immunoglobin IgG,IgA,IgM-QT-AMS IgM, Serum 15:58:00 136 mg/dL 33-293 IgA, Serum 15:58:00 103 mg/dL 65-421 IgG, Serum 15:58:00 790 mg/dL [phone] Testing performed at [facility] Reference Lab [address] [facility] [address] Automatic Brine Mixer Operator Josr Arteaga MD Panel Description: DARI-Reflex QT if Positive DARI 15:58:00 Negative Negative Vital Signs Date / Time: Height Weight Pulse Rate Blood Pressure Temperature /14:01:00 63.50 in 138.00 lbs 154/86 mm[Hg] 97.8 F Procedures Procedure Date Unknown Encounters Encounter Location Date Patient Visit [facility] Advance Directives Directive Effective Date Unknown
--- OUTSIDE RECORDS SUMMARY | 2018-04-26 07:08 | XMS REPORT | Continuity of Care Document ---
Author Author [facility] Organization [facility] Address Unknown Phone Unavailable Allergies Active Description Code Type Severity Reaction Onset Reported/Identified Relationship to Patient Clinical Status Yes Penicillins [id number] Drug Allergy Unknown N/A 03/09/2008 Yes Sulfa (Sulfonamide Antibiotics) [id number] Drug Allergy Unknown FEVER/CHILLS/HI 04/24/2018 Medications Medication Packaging Start Date Stop Date Route Dosage Sig HYDROCODONE BITARTRATE 2017 NORCO ORAL 01/03/2018 40 1 tab Q4H or 2 tabs Q6H Problems Date Dx Coded Attending Type Code Diagnosis Diagnosed By 05/05/2009 Ot 311 05/05/2009 Ot 401.9 05/05/2009 Ot 530.81 05/05/2009 Ot 780.50 11/03/2009 Ot 250.00 11/03/2009 Ot 723.1 11/03/2009 Ot V57.1 03/30/2011 Ot 535.40 OTH SPECIFIED GASTRITIS,W/O MENTION OF H 03/30/2011 Ot 536.3 GASTROPARESIS 03/30/2011 Ot V45.89 POSTSURGICAL STATES NEC 03/13/2012 Ot 401.9 HYPERTENSION NOS 03/13/2012 Ot 788.41 URINARY FREQUENCY 03/13/2012 Ot 789.09 ABDOMINAL PAIN, OTHER SPECIFIED SITE 03/13/2012 Ot V04.81 ND FOR PROPHYLACTIC VACCIN AND INOCULATI 03/15/2012 Ot 276.51 DEHYDRATION 03/15/2012 Ot 787.91 DIARRHEA 06/04/2012 Ot 218.2 SUBSEROUS LEIOMYOMA 06/04/2012 Ot 616.0 CERVICITIS 06/04/2012 Ot 618.4 UTERVAGINAL PROLAPSE NOS 06/04/2012 Ot 625.6 FEM STRESS INCONTINENCE 02/27/2013 KATHERINE DIANE, TARYN Strickland Ot 599.70 HEMATURIA, UNSPECIFIED 04/15/2013 BABITA DIANE, MAGALI Strickland Ot 701.8 SKIN HYPERTRO/ATROPH NEC 04/15/2013 BABITA DIANE, MAGALI Strickland Ot 709.9 SKIN DISORDER NOS 04/17/2013 KARLOS DIANE, MICHAELLE Spencer Ot 355.0 SCIATIC NERVE LESION 04/17/2013 MICHAELLE EVERETT MD Ot 726.5 ENTHESOPATHY OF HIP 04/17/2013 MICHAELLE EVERETT MD Ot V57.1 PHYSICAL THERAPY NEC 03/31/2014 JESUS JANE MD Ot 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 03/31/2014 JESUS JANE MD Ot 625.6 FEM STRESS INCONTINENCE 09/27/2014 YO ISELA K Ot 824.6 FX TRIMALLEOLAR-CLOSED 09/27/2014 ISELA RAM DO Ot 847.0 SPRAIN OF NECK 09/27/2014 ISELA RAM DO Ot 920 CONTUSION FACE/SCALP/NCK 09/27/2014 YO MARTÍNEZ ISELA Amber Ot 959.7 LOWER LEG INJURY NOS 09/27/2014 YO MARTÍNEZ ISELA Amber Ot E000.8 OTHER EXTERNAL CAUSE STATUS 09/27/2014 YO MARTÍNEZ ISELA Amber Ot 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 09/29/2014 Ot 250.00 09/29/2014 Ot 959.5 09/29/2014 Ot E000.8 09/29/2014 Ot E030 09/29/2014 Ot E824.9 09/29/2014 Ot 250.00 09/29/2014 Ot 272.4 09/29/2014 Ot 401.1 09/29/2014 Ot 722.4 09/29/2014 Ot V76.12 09/29/2014 Ot 562.10 09/29/2014 Ot 599.70 09/29/2014 Ot 782.1 09/29/2014 Ot 250.00 09/29/2014 Ot 401.1 09/29/2014 Ot 729.5 09/29/2014 Ot V76.12 09/29/2014 Ot 356.9 09/29/2014 Ot 721.0 09/29/2014 Ot 724.2 09/29/2014 Ot 529.6 09/29/2014 Ot V76.12 09/29/2014 Ot 599.70 09/29/2014 Ot 724.5 09/29/2014 Ot 789.00 09/29/2014 Ot 788.20 09/29/2014 Ot 791.9 09/29/2014 Ot V72.63 09/29/2014 Ot V72.81 09/29/2014 Ot V74.8 09/29/2014 Ot 719.45 09/29/2014 Ot 285.9 09/29/2014 Ot 721.0 09/29/2014 Ot 780.79 09/29/2014 Ot 733.40 09/29/2014 ROSEMARY DIANE, MEMO Mark Ot V76.12 09/29/2014 ROSEMARY DIANE, MEMO Mark Ot 793.80 09/29/2014 KATHERINE DIANE, TARYN Strickland Ot 112.0 09/29/2014 KATHERINE DIANE, TARYN Strickland Ot 355.9 09/29/2014 FRANCISCO DIANE, ELTON Garay Ot 356.4 09/29/2014 FRANCISCO DIANE, ELTON Garay Ot 787.20 09/29/2014 Ot 599.70 09/29/2014 FRANCISCO DIANE, ELTON Garay Ot 787.20 09/29/2014 KATHERINE DIANE, TARYN Strickland Ot 686.9 09/29/2014 KATHERINE DIANE, TARYN Strickland Ot V74.8 09/29/2014 BABITA DIANE, MAGALI Strickland Ot 709.9 09/29/2014 BABITA DIANE, MAGALI M Ot V72.63 09/29/2014 BABITA DIANE, MAGALI M Ot V74.8 09/29/2014 KATHERINE DAINE, TARYN Strickland Ot V74.8 09/29/2014 ROSEMARY DIANE, MEMO Mark Ot V76.12 09/29/2014 MATTIE DIANE, DEBORA Clark Ot 379.8 09/29/2014 BUCK DIANE, JESUS Garay Ot 599.82 09/29/2014 BUCK DIANE, JESUS Garay Ot 625.6 09/29/2014 BUCK DIANE, JESUS Garay Ot V72.81 09/29/2014 BUCK DIANE, JESUS Garay Ot V74.8 09/30/2014 Ot 250.00 09/30/2014 Ot 959.5 09/30/2014 Ot E000.8 09/30/2014 Ot E030 09/30/2014 Ot E824.9 09/30/2014 Ot 250.00 09/30/2014 Ot 272.4 09/30/2014 Ot 401.1 09/30/2014 Ot 722.4 09/30/2014 Ot V76.12 09/30/2014 Ot 562.10 09/30/2014 Ot 599.70 09/30/2014 Ot 782.1 09/30/2014 Ot 250.00 09/30/2014 Ot 401.1 09/30/2014 Ot 729.5 09/30/2014 Ot V76.12 09/30/2014 Ot 356.9 09/30/2014 Ot 721.0 09/30/2014 Ot 724.2 09/30/2014 Ot 529.6 09/30/2014 Ot V76.12 09/30/2014 Ot 599.70 09/30/2014 Ot 724.5 09/30/2014 Ot 789.00 09/30/2014 Ot 788.20 09/30/2014 Ot 791.9 09/30/2014 Ot V72.63 09/30/2014 Ot V72.81 09/30/2014 Ot V74.8 09/30/2014 Ot 719.45 09/30/2014 Ot 285.9 09/30/2014 Ot 721.0 09/30/2014 Ot 780.79 09/30/2014 Ot 733.40 09/30/2014 ROSEMARY DIANE, MEMO Mark Ot V76.12 09/30/2014 ROSEMARY DIANE, MEMO Mark Ot 793.80 09/30/2014 KATHERINE DIANE, TARYN Strickland Ot 112.0 09/30/2014 KATHERINE DIANE, TARYN Strickland Ot 355.9 09/30/2014 FRANCISCO DIANE, ELTON Garay Ot 356.4 09/30/2014 FRANCISCO DIANE, ELTON Garay Ot 787.20 09/30/2014 Ot 599.70 09/30/2014 FRANCISCO DIANE, ELTON Garay Ot 787.20 09/30/2014 KATHERINE DIANE, TARYN Strickland Ot 686.9 09/30/2014 KATHERINE DIANE, TARYN Strickland Ot V74.8 09/30/2014 BABITA DIANE, MAGALI Strickland Ot 709.9 09/30/2014 BABITA DIANE, MAGALI Strickland Ot V72.63 09/30/2014 BABITA DIANE, MAGALI Strickland Ot V74.8 09/30/2014 KATHERINE DIANE, TARYN Strickland Ot V74.8 09/30/2014 ROSEMARY DIANE, MEMO G Ot V76.12 09/30/2014 MATTIE DIANE, DEBORA Clark Ot 379.8 09/30/2014 BUCK DIANE, JESUS Garay Ot 599.82 09/30/2014 BUCK DIANE, JESUS Garay Ot 625.6 09/30/2014 BUCK DIANE, JESUS Garay Ot V72.81 09/30/2014 BUCK DIANE, JESUS Garay Ot V74.8 09/30/2014 VINNIE DIANE, STEVE Lane Ot 401.9 HYPERTENSION NOS 09/30/2014 VINNIE DIANE, STEVE Lane Ot 824.4 FX BIMALLEOLAR-CLOSED 09/30/2014 VINNIE DIANE, STEVE Lane Ot E000.8 OTHER EXTERNAL CAUSE STATUS 09/30/2014 VINNIE DIANE, STEVE Lane Ot 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 09/30/2014 VINNIE DIANE, STEVE Lane Ot V58.69 OT MED,LT,CURRENT USE 09/30/2014 VINNIE DIANE, STEVE Lane Ot V74.8 SCREEN-BACTERIAL DIS NEC 11/25/2014 VINNIE DIANE, STEVE Lane Ot V54.01 ENCNTR FOR REMOVAL OF INTERNAL FIXATION 11/25/2014 VINNIE DIANE, STEVE Lane Ot V74.8 SCREEN-BACTERIAL DIS NEC 12/24/2014 Ot 959.5 12/24/2014 Ot E000.8 12/24/2014 Ot E030 12/24/2014 Ot E824.9 12/24/2014 Ot 250.00 12/24/2014 Ot 272.4 12/24/2014 Ot 401.1 12/24/2014 Ot 722.4 12/24/2014 Ot V76.12 12/24/2014 Ot 562.10 12/24/2014 Ot 599.70 12/24/2014 Ot 782.1 12/24/2014 Ot 250.00 12/24/2014 Ot 401.1 12/24/2014 Ot 729.5 12/24/2014 Ot V76.12 12/24/2014 Ot 356.9 12/24/2014 Ot 721.0 12/24/2014 Ot 724.2 12/24/2014 Ot 529.6 12/24/2014 Ot V76.12 12/24/2014 Ot 599.70 12/24/2014 Ot 724.5 12/24/2014 Ot 789.00 12/24/2014 Ot 788.20 12/24/2014 Ot 791.9 12/24/2014 Ot V72.63 12/24/2014 Ot V72.81 12/24/2014 Ot V74.8 12/24/2014 Ot 719.45 12/24/2014 Ot 285.9 12/24/2014 Ot 721.0 12/24/2014 Ot 780.79 12/24/2014 Ot 733.40 12/24/2014 ROSEMARY DIANE, MEMO Mark Ot V76.12 12/24/2014 ROSEMARY DIANE, MEMO Mark Ot 793.80 12/24/2014 KATHERINE DIANE, TARYN Strickland Ot 112.0 12/24/2014 KATHERINE DIANE, TARYN Strickland Ot 355.9 12/24/2014 FRANCISCO DIANE, ELTON Garay Ot 356.4 12/24/2014 FRANCISCO DIANE, ELTON Garay Ot 787.20 12/24/2014 Ot 599.70 12/24/2014 FRANCISCO IDANE, ELTON Garay Ot 787.20 12/24/2014 KATHERINE DIANE, TARYN Strickland Ot 686.9 12/24/2014 KATHERINE DIANE, TARYN Strickland Ot V74.8 12/24/2014 BABITA DIANE, MAGALI Strickland Ot 709.9 12/24/2014 BABITA DIANE, MAGALI M Ot V72.63 12/24/2014 BABITA DIANE, MAGALI M Ot V74.8 12/24/2014 KATHERINE DIANE, TARYN Strickland Ot V74.8 12/24/2014 ROSEMARY DIANE, MEMO Mark Ot V76.12 12/24/2014 MATTIE DIANE, DEBORA K Ot 379.8 12/24/2014 BUCK DIANE, JESUS Garay Ot 599.82 12/24/2014 BUCK DIANE, JESUS Garay Ot 625.6 12/24/2014 BUCK DIANE, JESUS Garay Ot V72.81 12/24/2014 BUCK DIANE, JESUS Garay Ot V74.8 12/24/2014 VINNIE DIANE, STEVE P Ot 824.6 12/24/2014 VINNIE DIANE, STEVE P Ot E000.8 12/24/2014 VINNIE DIANE, STEVE P Ot E816.1 12/24/2014 VINNIE DIANE, STEVE P Ot V72.84 12/24/2014 VINNIE DIANE, STEVE P Ot V54.01 12/24/2014 VINNIE DIANE, STEVE Lane Ot V72.84 02/03/2015 Ot 959.5 02/03/2015 Ot E000.8 02/03/2015 Ot E030 02/03/2015 Ot E824.9 02/03/2015 Ot 250.00 02/03/2015 Ot 272.4 02/03/2015 Ot 401.1 02/03/2015 Ot 722.4 02/03/2015 Ot V76.12 02/03/2015 Ot 562.10 02/03/2015 Ot 599.70 02/03/2015 Ot 782.1 02/03/2015 Ot 250.00 02/03/2015 Ot 401.1 02/03/2015 Ot 729.5 02/03/2015 Ot V76.12 02/03/2015 Ot 356.9 02/03/2015 Ot 721.0 02/03/2015 Ot 724.2 02/03/2015 Ot 529.6 02/03/2015 Ot V76.12 02/03/2015 Ot 599.70 02/03/2015 Ot 724.5 02/03/2015 Ot 789.00 02/03/2015 Ot 788.20 02/03/2015 Ot 791.9 02/03/2015 Ot V72.63 02/03/2015 Ot V72.81 02/03/2015 Ot V74.8 02/03/2015 Ot 719.45 02/03/2015 Ot 285.9 02/03/2015 Ot 721.0 02/03/2015 Ot 780.79 02/03/2015 Ot 733.40 02/03/2015 ROSEMARY DIANE, MEMO Mark Ot V76.12 02/03/2015 ROSEMARY DIANE, MEMO Mark Ot 793.80 02/03/2015 KATHERINE DIANE, TARYN Strickland Ot 112.0 02/03/2015 KATHERINE DIANE, TARYN Strickland Ot 355.9 02/03/2015 FRANCISCO DIANE, CARISSA Ot 356.4 02/03/2015 FRANCISCO DIANE, CARISSA Ot 787.20 02/03/2015 Ot 599.70 02/03/2015 FRANCISCO DIANE, CARISSA Ot 787.20 02/03/2015 KATHERINE DIANE, TARYN Strickland Ot 686.9 02/03/2015 KATHERINE DIANE, TARYN M Ot V74.8 02/03/2015 BABITA DIANE, MAGALI M Ot 709.9 02/03/2015 BABITA DIANE, MAGALI M Ot V72.63 02/03/2015 BABITA DIANE, MAGALI M Ot V74.8 02/03/2015 KATHERINE DIANE, TARYN M Ot V74.8 02/03/2015 ROSEMARY DIANE, MEMO Mark Ot V76.12 02/03/2015 MATTIE DIANE, DEBORA Clark Ot 379.8 02/03/2015 BUCK DIANE, JESUS A Ot 599.82 02/03/2015 BUCK DIANE, JESUS A Ot 625.6 02/03/2015 BUCK DIANE, JESUS A Ot V72.81 02/03/2015 BUCK DIANE, JESUS A Ot V74.8 02/03/2015 VINNIE DIANE, STEVE Lane Ot 824.6 02/03/2015 VINNIE DIANE, STEVE Lane Ot E000.8 02/03/2015 VINNIE DIANE, STEVE Lane Ot E816.1 02/03/2015 VINNIE DIANE, STEVE Lane Ot V72.84 02/03/2015 VINNIE DIANE, STEVE Lane Ot V54.01 02/03/2015 VINNIE DIANE, STEVE Lane Ot V72.84 02/08/2015 Ot 959.5 02/08/2015 Ot E000.8 02/08/2015 Ot E030 02/08/2015 Ot E824.9 02/08/2015 Ot 250.00 02/08/2015 Ot 272.4 02/08/2015 Ot 401.1 02/08/2015 Ot 722.4 02/08/2015 Ot V76.12 02/08/2015 Ot 562.10 02/08/2015 Ot 599.70 02/08/2015 Ot 782.1 02/08/2015 Ot 250.00 02/08/2015 Ot 401.1 02/08/2015 Ot 729.5 02/08/2015 Ot V76.12 02/08/2015 Ot 356.9 02/08/2015 Ot 721.0 02/08/2015 Ot 724.2 02/08/2015 Ot V76.12 02/08/2015 Ot 789.00 02/08/2015 Ot 788.20 02/08/2015 Ot 791.9 02/08/2015 Ot V72.63 02/08/2015 Ot V72.81 02/08/2015 Ot V74.8 02/08/2015 Ot 719.45 02/08/2015 Ot 285.9 02/08/2015 Ot 721.0 02/08/2015 Ot 780.79 02/08/2015 Ot 733.40 02/08/2015 ROSEMARY DIANE, MEMO Mark Ot V76.12 02/08/2015 ROSEMARY DIANE, MEMO Mark Ot 793.80 02/08/2015 KATHERINE DIANE, TARYN Strickland Ot 112.0 02/08/2015 KATHERINE DIANE, TARYN Strickland Ot 355.9 02/08/2015 FRANCISCO DIANE, ELTON Garay Ot 356.4 02/08/2015 FRANCISCO DIANE, ELTON Garay Ot 787.20 02/08/2015 Ot 599.70 02/08/2015 FRANCISCO DIANE, ELTON Garay Ot 787.20 02/08/2015 KATHERINE DIANE, TARYN M Ot 686.9 02/08/2015 KATHERINE DIANE, TARYN M Ot V74.8 02/08/2015 BABITA DIANE, MAGALI M Ot 709.9 02/08/2015 BABITA DIANE, MAGALI M Ot V72.63 02/08/2015 BABITA DIANE, MAGALI M Ot V74.8 02/08/2015 KATHERINE DIANE, TARYN M Ot V74.8 02/08/2015 ROSEMARY DIANE, MEMO Mark Ot V76.12 02/08/2015 MATTIE DIANE, DEBORA K Ot 379.8 02/08/2015 BUCK DIANE, JESUS Garay Ot 599.82 02/08/2015 BUCK DIANE, JESUS Garay Ot 625.6 02/08/2015 BUCK DIANE, JESUS A Ot V72.81 02/08/2015 BUCK DIANE, JESUS Garay Ot V74.8 02/08/2015 VINNIE DIANE, STEVE Lane Ot 824.6 02/08/2015 VINNIE DIANE, STEVE Lane Ot E000.8 02/08/2015 VINNIE DIANE, STEVE Lane Ot E816.1 02/08/2015 VINNIE DIANE, STEVE Lane Ot V72.84 02/08/2015 VINNIE DIANE, STEVE Lane Ot V54.01 02/08/2015 VINNIE DIANE, STEVE Lane Ot V72.84 02/10/2015 Ot 959.5 02/10/2015 Ot E000.8 02/10/2015 Ot E030 02/10/2015 Ot E824.9 02/10/2015 Ot 250.00 02/10/2015 Ot 272.4 02/10/2015 Ot 401.1 02/10/2015 Ot 722.4 02/10/2015 Ot V76.12 02/10/2015 Ot 562.10 02/10/2015 Ot 599.70 02/10/2015 Ot 782.1 02/10/2015 Ot 250.00 02/10/2015 Ot 401.1 02/10/2015 Ot 729.5 02/10/2015 Ot V76.12 02/10/2015 Ot 356.9 02/10/2015 Ot 721.0 02/10/2015 Ot 724.2 02/10/2015 Ot 529.6 02/10/2015 Ot V76.12 02/10/2015 Ot 599.70 02/10/2015 Ot 724.5 02/10/2015 Ot 789.00 02/10/2015 Ot 788.20 02/10/2015 Ot 791.9 02/10/2015 Ot V72.63 02/10/2015 Ot V72.81 02/10/2015 Ot V74.8 02/10/2015 Ot 719.45 02/10/2015 Ot 285.9 02/10/2015 Ot 721.0 02/10/2015 Ot 780.79 02/10/2015 Ot 733.40 02/10/2015 ROSEMARY DIANE, MEMO Mark Ot V76.12 02/10/2015 ROSEMARY DIANE, MEMO Mark Ot 793.80 02/10/2015 KATHERINE DIANE, TARYN Strickland Ot 112.0 02/10/2015 KATHERINE DIANE, TARYN M Ot 355.9 02/10/2015 FRANCISCO DIANE, CARISSA Ot 356.4 02/10/2015 FRANCISCO DIANE, ELTON Garay Ot 787.20 02/10/2015 Ot 599.70 02/10/2015 FRANCISCO DIANE, CARISSA Ot 787.20 02/10/2015 KATHERINE DIANE, TARYN Strickland Ot 686.9 02/10/2015 KATHERINE DIANE, TARYN Strickland Ot V74.8 02/10/2015 BABITA DIANE, MAGALI M Ot 709.9 02/10/2015 BABITA DIANE, MAGALI M Ot V72.63 02/10/2015 BABITA DIANE, MAGALI M Ot V74.8 02/10/2015 KATHERINE DIANE, TARYN M Ot V74.8 02/10/2015 ROSEMARY DIANE, MEMO Mark Ot V76.12 02/10/2015 MATTIE DIANE, DEBORA K Ot 379.8 02/10/2015 BUCK DIANE, JESUS A Ot 599.82 02/10/2015 BUCK DIANE, JESUS A Ot 625.6 02/10/2015 BUCK DIANE, JESUS A Ot V72.81 02/10/2015 BUCK DIANE, JESUS A Ot V74.8 02/10/2015 VINNIE DIANE, STEVE P Ot 824.6 02/10/2015 VINNIE DIANE, STEVE P Ot E000.8 02/10/2015 VINNIE DIANE, STEVE P Ot E816.1 02/10/2015 VINNIE DIANE, STEVE P Ot V72.84 02/10/2015 VINNIE DIANE, STEVE P Ot V54.01 02/10/2015 VINNIE DIANE, STEVE P Ot V72.84 02/10/2015 ROSEMARY DIANE, MEMO Mark Ot V76.12 02/10/2015 VINNIE DIANE, STEVE P Ot 723.4 02/25/2015 ROSEMARY DIANE, MEMO Mark Ot V76.12 03/22/2016 VINNIE DIANE, STEVE Lane Ot 723.4 BRACHIAL NEURITIS NOS 08/10/2016 Ot 724.2 LUMBAGO 08/10/2016 Ot 529.6 GLOSSODYNIA 08/10/2016 Ot V76.12 OTH SCREEN MAMMO-MALIGN NEOPLASM OF JR 08/10/2016 Ot 599.70 HEMATURIA, UNSPECIFIED 08/10/2016 Ot 724.5 BACKACHE NOS 08/10/2016 Ot 789.00 ABDOMINAL PAIN, UNSPECIFIED SITE 08/10/2016 Ot 788.20 RETENTION OF URINE NOS 08/10/2016 Ot 791.9 ABN URINE FINDINGS NEC 08/10/2016 Ot V72.63 PRE- PROCEDURAL LABORATORY EXAMINATION 08/10/2016 Ot V72.81 EXAM-PRE- OPERATIVE CARDIOVASCULAR 08/10/2016 Ot V74.8 SCREEN- BACTERIAL DIS NEC 08/10/2016 Ot 719.45 JOINT PAIN- PELVIS 08/10/2016 Ot 285.9 ANEMIA NOS 08/10/2016 Ot 721.0 CERVICAL SPONDYLOSIS 08/10/2016 Ot 780.79 OTH MALAISE FATIGUE 08/10/2016 Ot 733.40 ASEPT NECROSIS BONE NOS 08/10/2016 MEMO RILEY MD Ot V76.12 OTH SCREEN MAMMO-MALIGN NEOPLASM OF JR 08/10/2016 MEMO RILEY MD Ot 793.80 UNSPEC ABNORMAL MAMMOGRAM 08/10/2016 KATHERINE DIANE, TARYN Strickland Ot 112.0 THRUSH 08/10/2016 TARYN MURPHY MD Ot 355.9 MONONEURITIS NOS 08/10/2016 ELTON SINGH MD Ot 356.4 IDIO PROG POLYNEUROPATHY 08/10/2016 ELTON SINGH MD Ot 787.20 DYSPHAGIA, UNSPECIFIED 08/10/2016 Ot 599.70 HEMATURIA, UNSPECIFIED 08/10/2016 ELTON SINGH MD Ot 787.20 DYSPHAGIA, UNSPECIFIED 08/10/2016 TARYN MURPHY MD Ot 686.9 LOCAL SKIN INFECTION NOS 08/10/2016 TARYN MURPHY MD Ot V74.8 SCREEN-BACTERIAL DIS NEC 08/10/2016 MAGALI JC MD Ot 709.9 SKIN DISORDER NOS 08/10/2016 MAGALI JC MD Ot V72.63 PRE-PROCEDURAL LABORATORY EXAMINATION 08/10/2016 MAGALI JC MD Ot V74.8 SCREEN-BACTERIAL DIS NEC 08/10/2016 TARYN MURPHY MD Ot V74.8 SCREEN-BACTERIAL DIS NEC 08/10/2016 ROSEMARY DIANE, MEMO Mark Ot V76.12 OTH SCREEN MAMMO-MALIGN NEOPLASM OF JR 08/10/2016 MATTIE DIANE, DEBORA Clark Ot 379.8 EYE DISORDERS NEC 08/10/2016 JESUS JANE MD Ot 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 08/10/2016 JESUS JANE MD Ot 625.6 FEM STRESS INCONTINENCE 08/10/2016 JESUS JANE MD Ot V72.81 [id number] CARDIOVASCULAR 08/10/2016 JESUS JANE MD Ot V74.8 SCREEN-BACTERIAL DIS NEC 08/10/2016 STEVE BIRMINGHAM MD Ot 824.6 FX TRIMALLEOLAR-CLOSED 08/10/2016 STEVE BIRMINGHAM MD Ot E000.8 OTHER EXTERNAL CAUSE STATUS 08/10/2016 STEVE BIRMINGHAM MD Ot 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 08/10/2016 STEVE BIRMINGHAM MD Ot V72.84 EXAM PRE-OPERATIVE NOS 08/10/2016 STEVE BIRMINGHAM MD Ot V54.01 ENCNTR FOR REMOVAL OF INTERNAL FIXATION 08/10/2016 STEVE BIRMINGHAM MD Ot V72.84 EXAM PRE-OPERATIVE NOS 08/10/2016 ROSEMARY DIANE, MEMO Mark Ot V76.12 OTH SCREEN MAMMO-MALIGN NEOPLASM OF JR 08/10/2016 STEVE BIRMINGHAM MD Ot 723.4 BRACHIAL NEURITIS NOS 08/10/2016 MEAGHAN DIANE, BEBE Spencer Ot F17.210 NICOTINE DEPENDENCE, CIGARETTES, UNCOMPL 08/10/2016 BEBE HARDING MD Ot S62.337B DISP FX OF NECK OF FIFTH MC BONE, LEFT H 08/10/2016 BEBE HARDING MD, Ot S66.902A UNSP INJ UNSP MUSC/FASC/TEND AT WRS/HND 08/10/2016 BEBE HARDING MD, Ot S69.92XA UNSP INJURY OF LEFT WRIST, HAND AND FING 08/10/2016 BEBE HARDING MD, Ot W31.1XXA CONTACT WITH METALWORKING MACHINES, INIT 08/10/2016 BEBE HARDING MD Ot Y92.[address] 08/10/2016 BEBE HARDING MD Ot Y99.0 CIVILIAN ACTIVITY DONE FOR INCOME OR PAY 08/10/2016 BEBE HARDING MD, Ot Z23 ENCOUNTER FOR IMMUNIZATION 08/10/2016 BEBE HARDING MD, Ot Z79.82 ASSISTED (CURRENT) USE OF ASPIRIN 08/10/2016 BEBE HARDING MD Ot Z79.899 OTHER ASSISTED (CURRENT) DRUG THERAPY 08/11/2016 BEBE HARDING MD Ot F17.210 NICOTINE DEPENDENCE, CIGARETTES, UNCOMPL 08/11/2016 BEBE HARDING MD Ot S62.337B DISP FX OF NECK OF FIFTH MC BONE, LEFT H 08/11/2016 BEBE HARDING MD, Ot S66.902A UNSP INJ UNSP MUSC/FASC/TEND AT WRS/HND 08/11/2016 BEBE HARDING MD Ot S69.92XA UNSP INJURY OF LEFT WRIST, HAND AND FING 08/11/2016 BEBE HARDING MD Ot W31.1XXA CONTACT WITH METALWORKING MACHINES, INIT 08/11/2016 BEBE HARDING MD, Ot Y92.[address] 08/11/2016 BEBE HARDING MD, Ot Y99.0 CIVILIAN ACTIVITY DONE FOR INCOME OR PAY 08/11/2016 BEBE HARDING MD Ot Z23 ENCOUNTER FOR IMMUNIZATION 08/11/2016 BEBE HARDING MD, Ot 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 08/11/2016 BEBE HARDING MD Ot Z79.899 OTHER COUNTY LIBRARY DIRECTOR (CURRENT) DRUG THERAPY 08/17/2016 BEBE HARDING MD Ot F17.210 NICOTINE DEPENDENCE, CIGARETTES, UNCOMPL 08/17/2016 BEBE HARDING MD Ot S62.337B DISP FX OF NECK OF FIFTH MC BONE, LEFT H 08/17/2016 BEBE HARDING MD Ot S66.902A UNSP INJ UNSP MUSC/FASC/TEND AT WRS/HND 08/17/2016 BEBE HARDING MD Ot S69.92XA UNSP INJURY OF LEFT WRIST, HAND AND FING 08/17/2016 BEBE HARDING MD Ot W31.1XXA CONTACT WITH METALWORKING MACHINES, INIT 08/17/2016 BEBE HARDING MD Ot Y92.[address] 08/17/2016 BEBE HARDING MD Ot Y99.0 CIVILIAN ACTIVITY DONE FOR INCOME OR PAY 08/17/2016 BEBE HARDING MD Ot Z23 ENCOUNTER FOR IMMUNIZATION 08/17/2016 BEBE HARDING MD Ot 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 08/17/2016 BEBE HARDING MD Ot Z79.899 OTHER ASSISTED (CURRENT) DRUG THERAPY 08/18/2016 Ot 724.2 LUMBAGO 08/18/2016 Ot 529.6 GLOSSODYNIA 08/18/2016 Ot V76.12 OTH SCREEN MAMMO-MALIGN NEOPLASM OF JR 08/18/2016 Ot 599.70 HEMATURIA, UNSPECIFIED 08/18/2016 Ot 724.5 BACKACHE NOS 08/18/2016 Ot 789.00 ABDOMINAL PAIN, UNSPECIFIED SITE 08/18/2016 Ot 788.20 RETENTION OF URINE NOS 08/18/2016 Ot 791.9 ABN URINE FINDINGS NEC 08/18/2016 Ot V72.63 PRE- PROCEDURAL LABORATORY EXAMINATION 08/18/2016 Ot V72.81 EXAM-PRE- OPERATIVE CARDIOVASCULAR 08/18/2016 Ot V74.8 SCREEN- BACTERIAL DIS NEC 08/18/2016 Ot 719.45 JOINT PAIN- PELVIS 08/18/2016 Ot 285.9 ANEMIA NOS 08/18/2016 Ot 721.0 CERVICAL SPONDYLOSIS 08/18/2016 Ot 780.79 OTH MALAISE FATIGUE 08/18/2016 Ot 733.40 ASEPT NECROSIS BONE NOS 08/18/2016 MEMO RILEY MD Ot V76.12 OTH SCREEN MAMMO-MALIGN NEOPLASM OF JR 08/18/2016 MEMO RILEY MD Ot 793.80 UNSPEC ABNORMAL MAMMOGRAM 08/18/2016 KATHERINE DIANE, TARYN Strickland Ot 112.0 THRUSH 08/18/2016 KATHERINE DIANE, TARYN Strickland Ot 355.9 MONONEURITIS NOS 08/18/2016 ELTON SINGH MD Ot 356.4 IDIO PROG POLYNEUROPATHY 08/18/2016 ELTON SINGH MD Ot 787.20 DYSPHAGIA, UNSPECIFIED 08/18/2016 Ot 599.70 HEMATURIA, UNSPECIFIED 08/18/2016 ELTON SINGH MD Ot 787.20 DYSPHAGIA, UNSPECIFIED 08/18/2016 KATHERINE DIANE, TARYN Strickland Ot 686.9 LOCAL SKIN INFECTION NOS 08/18/2016 TARYN MURPHY MD Ot V74.8 SCREEN-BACTERIAL DIS NEC 08/18/2016 BABITA DIANE, MAGALI Strickland Ot 709.9 SKIN DISORDER NOS 08/18/2016 BABITA DIANE, MAGALI Strickland Ot V72.63 PRE-PROCEDURAL LABORATORY EXAMINATION 08/18/2016 BABITA DIANE, MAGALI Strickland Ot V74.8 SCREEN-BACTERIAL DIS NEC 08/18/2016 TRAYN MURPHY MD Ot V74.8 SCREEN-BACTERIAL DIS NEC 08/18/2016 ROSEMARY DIANE, MEMO Mark Ot V76.12 OTH SCREEN MAMMO-MALIGN NEOPLASM OF JR 08/18/2016 MATTIE DIANE, DEBORA Clark Ot 379.8 EYE DISORDERS NEC 08/18/2016 JESUS JANE MD Ot 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 08/18/2016 JESUS JANE MD Ot 625.6 FEM STRESS INCONTINENCE 08/18/2016 JESUS JANE MD Ot V72.81 STVO-XLY-GRRZURKUY CARDIOVASCULAR 08/18/2016 JESUS JANE MD Ot V74.8 SCREEN-BACTERIAL DIS NEC 08/18/2016 STEVE BIRMINGHAM MD Ot 824.6 FX TRIMALLEOLAR-CLOSED 08/18/2016 STEVE BIRMINGHAM MD Ot E000.8 OTHER EXTERNAL CAUSE STATUS 08/18/2016 STEVE BIRMINGHAM MD Ot 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 08/18/2016 STEVE BIRMINGHAM MD Ot V72.84 EXAM PRE-OPERATIVE NOS 08/18/2016 STEVE BIRMINGHAM MD Ot V54.01 ENCNTR FOR REMOVAL OF INTERNAL FIXATION 08/18/2016 VINNIE DIANE, STEVE Lane Ot V72.84 EXAM PRE-OPERATIVE NOS 08/18/2016 ROSEMARY DIAEN, MEMO Mark Ot V76.12 OTH SCREEN MAMMO-MALIGN NEOPLASM OF JR 08/18/2016 VINNIE DIANE, STEVE Lane Ot 723.4 BRACHIAL NEURITIS NOS 07/24/2017 Ot 599.70 HEMATURIA, UNSPECIFIED 07/24/2017 Ot 724.5 BACKACHE NOS 07/24/2017 Ot 789.00 ABDOMINAL PAIN, UNSPECIFIED SITE 07/24/2017 Ot 788.20 RETENTION OF URINE NOS 07/24/2017 Ot 791.9 ABN URINE FINDINGS NEC 07/24/2017 Ot V72.63 PRE- PROCEDURAL LABORATORY EXAMINATION 07/24/2017 Ot V72.81 EXAM-PRE- OPERATIVE CARDIOVASCULAR 07/24/2017 Ot V74.8 SCREEN- BACTERIAL DIS NEC 07/24/2017 Ot 719.45 JOINT PAIN- PELVIS 07/24/2017 Ot 285.9 ANEMIA NOS 07/24/2017 Ot 721.0 CERVICAL SPONDYLOSIS 07/24/2017 Ot 780.79 OTH MALAISE FATIGUE 07/24/2017 Ot 733.40 ASEPT NECROSIS BONE NOS 07/24/2017 MEMO RILEY MD Ot V76.12 OTH SCREEN MAMMO-MALIGN NEOPLASM OF RJ 07/24/2017 MEMO RILEY MD Ot 793.80 UNSPEC ABNORMAL MAMMOGRAM 07/24/2017 KATHERINE DIANE, TARYN Strickland Ot 112.0 THRUSH 07/24/2017 KATHERINE DIANE, TARYN Strickland Ot 355.9 MONONEURITIS NOS 07/24/2017 ELTON SINGH MD Ot 356.4 IDIO PROG POLYNEUROPATHY 07/24/2017 ELTON SINGH MD Ot 787.20 DYSPHAGIA, UNSPECIFIED 07/24/2017 Ot 599.70 HEMATURIA, UNSPECIFIED 07/24/2017 ELTON SINGH MD Ot 787.20 DYSPHAGIA, UNSPECIFIED 07/24/2017 TARYN MURPHY MD Ot 686.9 LOCAL SKIN INFECTION NOS 07/24/2017 TARYN MURPHY MD Ot V74.8 SCREEN-BACTERIAL DIS NEC 07/24/2017 MAGALI JC MD Ot 709.9 SKIN DISORDER NOS 07/24/2017 BABITA DIANE, MAGALI Strickland Ot V72.63 PRE-PROCEDURAL LABORATORY EXAMINATION 07/24/2017 BABITA DIANE, MAGALI Strickland Ot V74.8 SCREEN-BACTERIAL DIS NEC 07/24/2017 KATHERINE DIANE, TARYN Strickland Ot V74.8 SCREEN-BACTERIAL DIS NEC 07/24/2017 ROSEMARY DIANE, MEMO Mark Ot V76.12 OTH SCREEN MAMMO-MALIGN NEOPLASM OF JR 07/24/2017 MATTIE DIANE, DEBORA Clark Ot 379.8 EYE DISORDERS NEC 07/24/2017 BUCK DIANE, JESUS Garay Ot 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 07/24/2017 JESUS JANE MD Ot 625.6 FEM STRESS INCONTINENCE 07/24/2017 JESUS JANE MD Ot V72.81 NYKE-NTL-VLRXPBNQM CARDIOVASCULAR 07/24/2017 JESUS JANE MD Ot V74.8 SCREEN-BACTERIAL DIS NEC 07/24/2017 STEVE BIRMINGHAM MD Ot 824.6 FX TRIMALLEOLAR-CLOSED 07/24/2017 STEVE BIRMINGHAM MD Ot E000.8 OTHER EXTERNAL CAUSE STATUS 07/24/2017 STEVE BIRMINGHAM MD Ot 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 07/24/2017 STEVE BIRMINGHAM MD Ot V72.84 EXAM PRE-OPERATIVE NOS 07/24/2017 STEVE BIRMINGHAM MD Ot V54.01 ENCNTR FOR REMOVAL OF INTERNAL FIXATION 07/24/2017 STEVE BIRMINGHAM MD Ot V72.84 EXAM PRE-OPERATIVE NOS 07/24/2017 ROSEMARY DIANE, MEMO Mark Ot V76.12 OTH SCREEN MAMMO-MALIGN NEOPLASM OF JR 07/24/2017 STEVE BIRMINGHAM MD Ot 723.4 BRACHIAL NEURITIS NOS 08/22/2017 ROSEMARY DIANE, MEMO Mark Ot Z12.31 ENCNTR SCREEN MAMMOGRAM FOR MALIGNANT NE 02/11/2018 FRANSISCO DPM, LIYA Q Ot M65.872 OTHER SYNOVITIS AND TENOSYNOVITIS, LEFT 03/06/2018 FRANSISCO DPM, LIYA Q Ot M65.872 OTHER SYNOVITIS AND TENOSYNOVITIS, LEFT 04/24/2018 Ot 599.70 HEMATURIA, UNSPECIFIED 04/24/2018 BUCK DIANE, JESUS Garay Ot Z01.818 ENCOUNTER FOR OTHER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
[2018-04-26 07:15] VITALS: BP 118/67
[2018-04-26] MEDS ORDERED: cefTRIAXone FOR IV USE 1,000 MG in NS (IVPB) 50 ML IV ONE (07:15)
[2018-04-26] MEDS ORDERED: MIDAZOLAM 2 MG/2 ML (VERSED) VIAL ONE (07:24)
[2018-04-26] MEDS ORDERED: fentaNYL INJECTION 100 MCG/2 ML AMP ONE (07:24)
[2018-04-26] MEDS ORDERED: ONDANSETRON 4 MG/2 ML (SDV) Z0FRAN IV ONE (07:30)
[2018-04-26] MEDS ORDERED: SCOPOLAMINE 1.5 MG (TRANSDERM-SCOP) PATCH TOP ONE (07:30)
[2018-04-26] MEDS ORDERED: FAMOTIDINE 20MG/2ML IV (PEPCID) IV ONE (07:30)
--- NOTE | 2018-04-26 07:36 | Progress Note-Post Operative ---
Post-Operative Progess Note Surgeon (s)/Director Mission (s) Surgeon JESUS JANE MD Director Mission: NONE Pre-Operative Diagnosis MIXED INCONTINENCE, ISD, AND OAB Post-Operative Diagnosis SAME Procedure & Operative Findings Date of Procedure 04/26/18 Procedure Performed/Findings MACROPLASTIQUE IMPLANT Anesthesia Type GENERAL Estimated Blood Loss Estimated blood loss (mL): NEGLIGIBLE Specimens/Packing Specimens Removed NONE Packing: NONE JESUS JANE MD Apr 26, 2018 7:36 am
--- NOTE | 2018-04-26 07:36 | Progress Note-Pre Operative ---
Pre-Operative Progress Note H&P Reviewed The H&P was reviewed, patient examined and no changes noted. Date Seen by Provider: Apr 26, 2018 Time Seen by Provider: 07:35 Date H&P Reviewed: Apr 26, 2018 Time H&P Reviewed: 07:35 Pre-Operative Diagnosis: MIXED INCONTINENCE, ISD, AND OAB JESUS JANE MD Apr 26, 2018 7:36 am
[2018-04-26] MEDS ORDERED: FAMOTIDINE 20MG/2ML IV (PEPCID) ONE (07:39)
[2018-04-26] MEDS ORDERED: ONDANSETRON 4 MG/2 ML (SDV) Z0FRAN ONE ×2 (07:39→08:11)
[2018-04-26] MEDS ORDERED: SCOPOLAMINE 1.5 MG (TRANSDERM-SCOP) PATCH ONE (07:39)
[2018-04-26] MEDS ORDERED: cefTRIAXone 1 GM/10 ML for IV (ROCEPHIN) ONE (07:39)
[2018-04-26] MEDS ORDERED: NS (IVPB) 50 ML ONE (07:39)
--- NOTE | 2018-04-26 07:39 | Discharge Inst-Urology ---
Discharge Inst-Urology Discharge Medications New, Converted, or Re-newed RX: RX on Chart Patient Instructions/Follow Up Plan Please make appointment to been seen in office in 4 weeks. Rest for one week Showers no bath Keep bowels soft and moving Increase oral fluids for 48 hours and then as needed. Diet as tolerated. If questions or concerns contact your physician Or seek help at emergency department. JESUS JANE MD Apr 26, 2018 7:38 am
[2018-04-26] MEDS ORDERED: proPOfol 200 MG/20 ML (DIPRIVAN) VIAL IV ONE (08:11)
[2018-04-26] MEDS ORDERED: DEXAMETHASONE 10 MG/ML (DECADRON) 1 ML VIAL ONE (08:11)
[2018-04-26] MEDS ORDERED: LIDOCAINE JELLY 2% 6 ML SYRINGE ONE (08:11)
[2018-04-26] MEDS ORDERED: SEVOFLURANE (ULTANE) 15 ML INHAL SOLN ONE (08:11)
[2018-04-26] MEDS ORDERED: LIDOCAINE PF 2% 5 ML (XYLOCAINE) VIAL ONE (08:11)
[2018-04-26] MEDS ORDERED: MEPERIDINE (DEMEROL) INJ 50 MG/ML IVP ONE (08:30)
[2018-04-26] MEDS ORDERED: ONDANSETRON 4 MG/2 ML (SDV) Z0FRAN IVP PRN (08:30)
[2018-04-26] MEDS ORDERED: KETOROLAC 30 MG/ML VIAL IVP ONE (08:30)
[2018-04-26] MEDS ORDERED: morphine INJ 10 MG/ML 1ML (SYR OR VIAL) IVP ONE (08:30)
[2018-04-26 09:25] VITALS: BP 118/58
[2018-04-26] MEDS ORDERED: NITR-65 PO (09:40)
[2018-04-26] MEDS ORDERED: PHEN-640 PO (09:40)
[2018-04-26 09:55] VITALS: BP 124/64
[2018-04-26 10:25] VITALS: BP 128/66
--- NOTE | 2018-04-26 16:12 | OPERATIVE REPORT ---
DATE OF SERVICE: 04/26/2018 PREOPERATIVE DIAGNOSIS: Mixed incontinence with overactive bladder and intrinsic sphincter deficiency. POSTOPERATIVE DIAGNOSIS: Mixed incontinence with overactive bladder and intrinsic sphincter deficiency. OPERATION PERFORMED: Macroplastique implant. SURGEON: Alejo Jane MD ANESTHESIA: General. COMPLICATIONS: None. DESCRIPTION OF PROCEDURE: Under satisfactory general anesthesia, the patient in lithotomy position, genitalia were prepped and draped in the usual sterile fashion. Cystoscope was introduced in the bladder. The Macroplastique implant full syringe was injected at the 6 o'clock position at the mid urethra using the described technique. Another half a syringe was injected at 10 and 2 o'clock position. There was good coaptation of the mid urethra. Bladder was evacuated and cystoscope was removed. The patient tolerated the procedure and anesthesia well and was sent to recovery room in stable condition. ESTIMATED BLOOD LOSS: Negligible. PLAN: If this does not do the job, the patient will be needing a pubovaginal sling. This was all explained to the patient preoperatively and to the as well postoperatively. Job ID: [id number] DocumentID: [id number] Dictated Date: 04/26/2018 08:53:52 System Engineer Date: 04/26/2018 16:12:05 Dictated By: ALEJO JANE MD
== END 2018-04-26 10:30 | disposition home or self-care (01) ==
LOC: SDC 06:57
PROVIDERS: ATTEND Urology
DX: N36.42 Intrinsic sphincter deficiency (ISD) (principal); N39.46 Mixed incontinence; N32.81 Overactive bladder; I10 Essential (primary) hypertension; K21.9 Gastro-esophageal reflux disease without esophagitis; G57.93 Unspecified mononeuropathy of bilateral lower limbs; Z79.899 Other long term (current) drug therapy
CPT/HCPCS: 87081

== ENCOUNTER → 2018-05-28 | Outpatient (CLI) | payer OTHER ==
[~2018-05-28] MED LIST changes: +PHEN-640 PO
== END | disposition home or self-care (01) ==
LOC: PREOP 05:52
PROVIDERS: ATTEND Podiatrist Foot & Ankle Surgery
DX: Z01.818 Encounter for other preprocedural examination (principal)

== ENCOUNTER 2018-05-30 05:39 | Outpatient (CLI) | payer OTHER ==
[~2018-05-30] VITALS: Ht 162.6 cm; Wt 62.1 kg
[2018-05-31] MEDS ORDERED: ACHD5005 PO (15:39)
== END 2018-05-30 16:30 | disposition home or self-care (01) ==
LOC: PREOP 05:39
PROVIDERS: ATTEND Urology
DX: Z01.818 Encounter for other preprocedural examination (principal)

== ENCOUNTER 2018-05-31 11:59 | Day surgery (SDC) | payer OTHER ==
[~2018-05-31] VITALS: Ht 162.6 cm; Wt 62.1 kg
--- OUTSIDE RECORDS SUMMARY | 2018-05-31 12:02 | XMS REPORT | Clinical Summary ---
Author Author [facility] Organization [facility] Address Unknown Phone Unavailable Care Team Providers Care Ditch Cleaner Name Role Phone Sandy Casanova MD PCP Source Comments Some departments are not documenting in the electronic medical record. If you do not see the information that you expected, contact Release of Information in the Health Information Management department at [phone] for further assistance in locating additional records.[facility] Allergies Comments Active Allergy Reactions Severity Noted Date Unconscious Penicillins SEE COMMENTS Low 04/25/2017 Medications End Date Status Medication Sig Dispensed Refills Start Date Active acyclovir (ZOVIRAX) 400 Take 400 mg 0 02/11/201 mg tablet by mouth 7 daily. Active carvedilol (COREG) 6.25 Take 6.25 mg 0 //201 mg tablet by mouth 7 daily. Active CHOLESTYRAMINE LIGHT 4 Take 1 packet 0 gram packet by mouth 7 daily. Active estradiol (ESTRACE) 1 mg Take 1 mg by 0 02/11/201 tablet mouth daily. 7 Active fluconazole (DIFLUCAN) Take 200 mg 0 200 mg tablet by mouth 7 every 7 days. Mondays Active fluoxetine(+) (PROZAC) 40 Take 40 mg by 0 02/11/201 mg capsule mouth daily. 7 Active gabapentin (NEURONTIN) Take 800 mg 0 800 mg tablet by mouth 7 twice daily. Active levothyroxine (SYNTHROID) Take 75 mcg 0 75 mcg tablet by mouth 7 daily 30 minutes before breakfast. Active meloxicam (MOBIC) 15 mg Take 15 mg by 0 02/11/201 tablet mouth daily. 7 Active oxybutynin XL (DITROPAN Take 15 mg by 0 XL) 15 mg tablet mouth daily. 7 Active calcium carbonate (TUMS) Chew 1,000 mg 0 500 mg (200 mg elemental by mouth calcium) chewable tablet daily as needed. Active pantoprazole DR Take 40 mg by 0 (PROTONIX) 40 mg tablet mouth twice daily. 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/2017 Displaced fracture of neck of left fifth metacarpal bone with routine 2016 healing Overview: Added automatically from request for surgery [id number] Trigger finger 05/21/2017 Overview: Added automatically from request for surgery [id number] Closed displaced fracture of neck of fifth metacarpal bone of left hand with routine healing Laceration of left hand 05/07/2017 Family History Medical History Relation Name Comments Stroke Mother Osteoporosis Sister Relation Name Status Comments Mother Sister Social History Date Tobacco Use Types Packs/Day Years Used Current Every Day Smoker 1 23 Smokeless Tobacco: Never Used Alcohol Use Drinks/Week oz/Week Comments Yes very rarely Sex Assigned at Date Recorded Not on file Industry Job Start Date Occupation Not on file Not on file Not on file Travel End Travel History Travel Start No recent travel history available. Last Filed Vital Signs Time Taken Vital Sign Reading 10/12/2017 11:03 AM CDT Blood Pressure 116/70 10/12/2017 11:03 AM CDT Pulse 61 07/05/2017 1:47 PM [employer] Temperature 36.8 C (98.2 F) - Respiratory Rate - 07/05/2017 3:15 PM [employer] Oxygen Saturation 97% - Inhaled Oxygen - Concentration 10/12/2017 11:03 AM CDT Weight 61.2 kg (135 lb) 10/12/2017 11:03 AM CDT Height 162.6 cm (5' 4.02") 10/12/2017 11:03 AM CDT Body Mass Index 23.16 Plan of Treatment Health Maintenance Due Date Last Done Comments HEPATITIS C SCREENING 1959 PHYSICAL (COMPREHENSIVE) 12/07/1966 EXAM HIV SCREENING 12/07/1974 DTAP/TDAP VACCINES (1 - 12/07/1977 Tdap) CERVICAL CANCER SCREENING 12/07/1989 BREAST CANCER SCREENING 1999 COLORECTAL CANCER 12/07/2009 SCREENING SHINGLES RECOMBINANT 12/07/2009 VACCINE (1 of 2) INFLUENZA VACCINE 01/23/2018 Results Not on filefrom Last 3 Months Insurance Payer Benefit Subscriber ID Type Phone Address Plan / Group WORKERS COMP GENERIC xxxxx-xxxxxx Indemnity WORK COMP [facility] xxxxxxxxx Indemnity CHOICE/CHO ICE PLUS Advance Directives Patient has advance care planning documents on file. For more information, please contact: [facility] [address] [place] [address]
--- OUTSIDE RECORDS SUMMARY | 2018-05-31 12:05 | XMS REPORT | CCD ---
Author Author [facility] Organization [facility] Address [address] [place] [address] Phone Care Team Providers Care Timber Buyer Name Role Phone PP Unavailable CCM Unavailable Summary Purpose Interface Exchange Insurance Providers Payer name Policy type / Coverage type Covered republican ID Effective Begin Date Effective End Date [facility] [employer] Insurance [id number] Unknown Family history Father Diagnosis Age At [...] Unknown Kaveh 11/01/2016 Employment Unknown Currently employed [employer] 01/06/[address]: 96740591 Current every day smoker 01/06/2016 Number of cigarettes/day Unknown 10 ( Half a pack) 01/06/2016 Number of children Unknown 2 12/01/[address]: 451328075 Never drinks alcohol 12/01/2014 Allergies, Adverse Reactions, Alerts Substance Reaction Codes Entered Date Inactivated Date Status Penicillin Unknown 12/01/2014 No Inactive Date Active SULFA (SULFONAMIDES) Unknown 03/25/2018 No Inactive Date Active Past Medical History Illness Codes Condition Status Onset Date Resolved Date Atrophy of thyroid (acquired) ICD-9: 244.8 ICD-10: E03.4 Active 03/06/2016 Unknown Essential (primary) hypertension ICD-9: 401.1 ICD-10: I10 Active 07/04/2016 Unknown Pain in left foot ICD- 9: 729.5 ICD-10: M79.672 Active 05/30/2018 Unknown Adverse effect of sulfonamides, initial encounter ICD-9: E931.0 ICD-10: T37.0X5A Active 03/26/2018 Unknown Allergic urticaria ICD -9: 708.0 ICD-10: L50.0 Active 03/26/2018 Unknown Laceration without foreign body of left hand, initial encounter ICD-9: 883.1 ICD-10: S61.412A Active 03/22/2018 Unknown Major depressive disorder, recurrent, moderate ICD-9: 296.32 ICD-10: F33.1 Active 03/06/2016 Unknown VACCIN FOR INFLUENZA ICD-9: V04.81 ICD-10: Z23 Active 04/30/2017 Unknown Low back pain ICD-9: 724.2 ICD-10: M54.5 Active 02/18/2018 Unknown Muscle spasm of back ICD-9: 724.8 ICD-10: M62.830 Active 02/18/2018 Unknown Encounter for general adult medical examination without abnormal findings ICD-9: V70.0 ICD-10: Z00.00 Active 11/05/2017 Unknown Other chronic pain ICD -9: 338.29 ICD-10: G89.29 Active 11/30/2014 Unknown Acute bronchitis due to other specified [...] hypertension ICD-9: 401.1 ICD-10: I10 07/04/2016 Active Pain in left foot ICD- 9: 729.5 ICD-10: M79.672 05/30/2018 Active Adverse effect of sulfonamides, initial encounter ICD-9: E931.0 ICD-10: T37.0X5A 03/26/2018 Active Allergic urticaria ICD -9: 708.0 ICD-10: L50.0 03/26/2018 Active Laceration without foreign body of left hand, initial encounter ICD-9: 883.1 ICD-10: S61.412A 03/22/2018 Active Major depressive disorder, recurrent, moderate ICD-9: 296.32 ICD-10: F33.1 03/06/2016 Active VACCIN FOR INFLUENZA ICD-9: V04.81 ICD-10: Z23 04/30/2017 Active Low back pain ICD-9: 724.2 ICD-10: M54.5 02/18/2018 Active Muscle spasm of back ICD-9: 724.8 ICD-10: M62.830 02/18/2018 Active Encounter for general adult medical examination without abnormal findings ICD-9: V70.0 ICD-10: Z00.00 11/05/2017 Active Other chronic pain ICD -9: 338.29 ICD-10: G89.29 11/30/2014 Active Acute bronchitis due to other specified [...] Start Date Stop Date Status Fill Instructions Diflucan 150 mg tablet RxNorm: 130672 1 Tablet(s) PO daily 09/201704/03/2018 Inactive nystatin 100,000 unit/gram topical cream RxNorm: 152368 1 Gram(s) TOP BID 03/28/2018 04/06/2018 Inactive nystatin 100,000 unit/gram topical cream RxNorm: 668175 1 Gram(s) TOP BID 03/28/2018 03/27/2018 Inactive Diflucan 150 mg tablet RxNorm: 306413 1 Tablet(s) PO daily 09/201703/27/2018 Inactive nystatin 100,000 unit/mL oral suspension RxNorm: 576896 5 Milliliter(s) PO QID 03/25/2018 04/03/2018 Inactive doxycycline hyclate 100 mg capsule RxNorm: 2344519 1 Capsule(s) PO BID 03/25/2018 04/07/2018 Inactive prednisone 10 mg tablets in a dose pack RxNorm: 594573 1 Tablet(s) PO UD 03/25/2018 03/24/2018 Inactive nystatin 100,000 unit/mL oral suspension RxNorm: 020534 5 Milliliter(s) PO QID 03/25/2018 03/24/2018 Inactive prednisone 10 mg tablets in a dose pack RxNorm: 361817 1 Tablet(s) PO UD 03/25/2018 03/30/2018 Inactive 6-5-4-3-2-1 Bactrim DS 800 mg-160 mg tablet RxNorm: 456114 1 Tablet(s) PO BID 03/22/2018 03/24/2018 Inactive azithromycin 250 mg tablet RxNorm: 718438 1 Tablet(s) PO UD 2 tabs on day #1, then one tab daily x 4 days 03/04/201806/2017 Inactive scopolamine 1 mg over 3 days transdermal patch RxNorm: 908894 1 Patch TD Q72H 03/04/2018 03/17/2018 Inactive cyclobenzaprine 5 mg tablet RxNorm: 079332 1 Tablet(s) PO TID as needed muscle spasms 02/18/2018 No Stop Date Active Questran Light 4 gram oral powder RxNorm: 5964374 1 PO BID as needed 1 PACKET PO BID NEEDED 02/11/2018 05/06/2019 Active Different instructions!Patient requests 90 days supply Coreg 6.25 mg tablet RxNorm: 291220 TAKE 1 TABLET BY MOUTH TWICE A DAY 01/31/2018 01/25/2019 Active - Ref: [id number] levothyroxine 75 mcg tablet RxNorm: 679433 TAKE 1 TABLET BY MOUTH DAILY 01/31/2018 01/25/2019 Active - Ref: [id number] meloxicam 15 mg tablet RxNorm: 830944 Tablet(s) TAKE 1 TABLET BY MOUTH DAILY 11/05/2017 10/30/2018 Active pantoprazole 40 mg tablet,delayed release RxNorm: 066597 1 Tablet(s) PO BID 11/05/2017 10/30/2018 Active acyclovir 400 mg tablet RxNorm: 896527 Tablet(s) TAKE 1 TABLET BY MOUTH DAILY 11/05/2017 10/30/2018 Active fluoxetine 40 mg capsule RxNorm: 761626 Capsule(s) TAKE 1 CAPSULE BY MOUTH DAILY 11/05/2017 10/30/2018 Active hydrocodone 10 mg-acetaminophen 325 mg tablet RxNorm: 116725 1 Tablet(s) PO QID as needed pain 11/05/2017 12/04/2017 Inactive gabapentin 800 mg tablet RxNorm: 186051 1 Tablet(s) PO BID 10/30/2018 Active oxybutynin chloride ER 15 mg tablet,extended release 24 hr RxNorm: 594683 Tablet(s ) TAKE 1 TABLET BY MOUTH DAILY 11/05/2017 10/30/2018 Active pantoprazole 40 mg tablet,delayed release RxNorm: 447811 1 Tablet(s) PO BID 11/05/2017 11/04/2017 Inactive fluoxetine 40 mg capsule RxNorm: 675030 TAKE 1 CAPSULE BY MOUTH DAILY 08/13/2017 11/04/2017 Inactive - First Attempt Ref: [id number] gabapentin 800 mg tablet RxNorm: 733751 1 Tablet(s) PO BID 11/04/2017 Inactive hydrocodone 10 mg-acetaminophen 325 mg tablet RxNorm: 012464 1 Tablet(s) PO QID as needed pain 07/13/2017 08/11/2017 Inactive meloxicam 15 mg tablet RxNorm: 532048 TAKE 1 TABLET BY MOUTH DAILY 06/19/2017 11/04/2017 Inactive - Ref: [id number] acyclovir 400 mg tablet RxNorm: 904091 TAKE 1 TABLET BY MOUTH DAILY 06/19/2017 09/16/2017 Inactive - Ref: [id number] oxybutynin chloride ER 15 mg tablet,extended release 24 hr RxNorm: 254988 TAKE 1 TABLET BY MOUTH DAILY 06/19/20172017 Inactive - Ref: [id number] hydrocodone 10 mg-acetaminophen 325 mg tablet RxNorm: 461833 1 Tablet(s) PO QID as needed pain 04/30/2017 05/29/2017 Inactive dexlansoprazole 60 mg capsule,biphase delayed release RxNorm: 373699 1 Capsule(s) PO BID 03/06/2017 11/04/2017 Inactive oxycodone-acetaminophen 5 mg-325 mg tablet RxNorm: 4088974 1to 2 Tablet(s) PO Q4H as needed 02/05/2017 No Stop Date Active meloxicam 15 mg tablet RxNorm: 742702 Take 1 tablet by mouth daily 01/12/2017 06/18/2017 Inactive - First Attempt Ref: [id number] doxycycline hyclate 100 mg capsule RxNorm: 0063961 1 Capsule(s) PO BID 12/13/2016 12/26/2016 Inactive Coreg 6.25 mg tablet RxNorm: 777314 Tablet(s) Take 1 tablet by mouth two times daily 11/24/2016 11/18/2017 Inactive levothyroxine 75 mcg tablet RxNorm: 066268 1 Tablet(s) PO daily take 30 minutes prior to taking other medications or eating 11/22/2016 11/16/2017 Inactive Coreg 6.25 mg tablet RxNorm: 507062 Take 1 tablet by mouth two times daily 11/21/2016 11/23/2016 Inactive - Ref: [id number] levothyroxine 50 mcg tablet RxNorm: 869730 Take 1 tablet by mouth daily 11/21/2016 11/21/2016 Inactive - Ref: [id number] acyclovir 400 mg tablet RxNorm: 168964 Take 1 tablet by mouth daily Rx written by ANTONINO: LUIS MONTANO 11/21/2016 06/18/2017 Inactive - Ref: [id number] Dexilant 60 mg capsule, delayed release RxNorm: 101825 1 Capsule(s) PO BID 11/01/2016 01/24/2018 Inactive estradiol 1 mg tablet RxNorm: 777759 1 Tablet(s) PO daily 201601/24/2018 Inactive levothyroxine 75 mcg tablet RxNorm: 784568 1 Tablet(s) PO daily take 30 minutes prior to taking other medications or eating 11/01/2016 11/21/2016 Inactive estradiol 1 mg tablet RxNorm: 447978 1 Tablet(s) PO daily 201610/31/2016 Inactive oxybutynin chloride ER 15 mg tablet,extended release 24 hr RxNorm: 523455 1 Tablet (s) PO daily 11/01/2016 06/18/2017 Inactive gabapentin 800 mg tablet RxNorm: 612613 1 Tablet(s) PO UD 1/2 pill in morning and 1 pill at bedtime 11/01/2016 07/12/2017 Inactive meloxicam 15 mg tablet RxNorm: 390949 1 Tablet(s) PO daily Take 1 tablet by mouth daily 11/01/2016 01/11/2017 Inactive - First Attempt Ref: [id number] acyclovir 400 mg tablet RxNorm: 463503 1 Tablet(s) PO daily 03/201711/20/2016 Inactive Coreg 6.25 mg tablet RxNorm: 551128 1 Tablet(s) PO BID 201611/20/2016 Inactive fluoxetine 40 mg capsule RxNorm: 656766 1 Capsule(s) PO daily 11/01/2016 08/12/2017 Inactive meloxicam 15 mg tablet RxNorm: 475280 Take 1 tablet by mouth daily 07/24/2016 10/31/2016 Inactive - First Attempt Ref: [id number] oxybutynin chloride ER 15 mg tablet,extended release 24 hr RxNorm: 866871 1 Tablet (s) PO daily 07/19/2016 10/31/2016 Inactive fluoxetine 40 mg capsule RxNorm: 900989 1 Capsule(s) PO daily 07/19/2016 10/31/2016 Inactive gabapentin 800 mg tablet RxNorm: 817612 1 Tablet(s) PO UD 1/2 pill in morning and 1 pill at bedtime 07/19/2016 10/31/2016 Inactive Questran Light 4 gram oral powder RxNorm: 4070133 1 PO BID as needed 1 PACKET PO BID NEEDED 07/19/2016 10/11/2017 Inactive Different instructions!Patient requests 90 days supply fluoxetine 40 mg capsule RxNorm: 877024 1 Capsule(s) PO daily 07/04/2016 07/18/2016 Inactive oxybutynin chloride ER 15 mg tablet,extended release 24 hr RxNorm: 210194 1 Tablet (s) PO daily 07/04/2016 07/18/2016 Inactive Questran Light 4 gram oral powder RxNorm: 2911460 1 PO BID as needed 1 PACKET PO BID NEEDED 07/04/2016 07/18/2016 Inactive Different instructions!Patient requests 90 days supply gabapentin 800 mg tablet RxNorm: 793354 1 Tablet(s) PO UD 1/2 pill in morning and 1 pill at bedtime 07/04/2016 07/18/2016 Inactive Questran Light 4 gram oral powder RxNorm: 1774617 1 PACKET PO TID NEEDED 05/24/2016 10/20/2016 Inactive Patient requests 90 days supply Questran Light 4 gram oral powder RxNorm: 0953918 1 PACKET PO BID NEEDED 05/24/2016 07/03/2016 Inactive Different instructions!Patient requests 90 days supply Questran Light 4 gram oral powder RxNorm: 5459459 1 packet PO BID as needed 05/23/2016 05/23/2016 Inactive Different instructions! Questran Light 4 gram oral powder RxNorm: 4382505 1 packet PO TID as needed 05/23/2016 05/22/2016 Inactive Questran Light 4 gram oral powder RxNorm: 3616385 1 packet PO TID as needed 03/07/2016 05/22/2016 Inactive gabapentin 800 mg tablet RxNorm: 417282 1 Tablet(s) PO UD 1/2 pill in morning and 1 pill at bedtime 03/07/2016 07/03/2016 Inactive meloxicam 15 mg tablet RxNorm: 774989 1 Tablet(s) PO daily 07/03/2016 Inactive duloxetine 60 mg capsule,delayed release RxNorm: 686089 1 Capsule(s) PO QHS take in additon to 30mg pills 01/06/20162015 Inactive levothyroxine 75 mcg tablet RxNorm: 050655 1 Tablet(s) PO daily take 30 minutes prior to taking other medications or eating 01/06/2016 07/03/2016 Inactive hydrocodone 10 mg-acetaminophen 325 mg tablet RxNorm: 352924 1 Tablet(s) PO QID as needed pain 01/06/2016 02/04/2016 Inactive meloxicam 15 mg tablet RxNorm: 031086 1 Tablet(s) PO daily 01/05/2016 Inactive levothyroxine 75 mcg tablet RxNorm: 571613 1 Tablet(s) PO daily take 30 minutes prior to taking other medications or eating 01/06/2016 01/05/2016 Inactive fluoxetine 10 mg capsule RxNorm: 483837 1 Capsule(s) PO daily 01/06/2016 07/03/2016 Inactive gabapentin 300 mg capsule RxNorm: 979689 1 Capsule(s) PO BID 01/05/2016 Inactive take one capsule by mouth every 6 hours as needed and 1 capsule bymouth every night at bedtime gabapentin 300 mg capsule RxNorm: 339120 1 Capsule(s) PO QAM and 2 Capsules PO QPM 01/06/2016 03/06/2016 Inactive meloxicam 15 mg tablet RxNorm: 203631 1 Tablet(s) PO daily 01/05/2016 Inactive duloxetine 30 mg capsule,delayed release RxNorm: 908402 Capsule(s) 1 CAPSULE(S) PO QHS 09/21/2015 06/19/2016 Inactive Coreg 6.25 mg tablet RxNorm: 568376 1 Tablet(s) PO BID 201510/31/2016 Inactive fluoxetine 20 mg capsule RxNorm: 973485 1 Capsule(s) PO daily 09/21/2015 01/05/2016 Inactive acyclovir 400 mg tablet RxNorm: 472919 1 Tablet(s) PO daily 10/31/2016 Inactive levothyroxine 50 mcg tablet RxNorm: 307376 1 Tablet(s) PO daily 09/21/2015 01/05/2016 Inactive Cipro 500 mg tablet RxNorm: 529590 1 Tablet(s) PO BID 201508/02/2015 Inactive Cipro 500 mg tablet RxNorm: 621495 1 Tablet(s) PO BID 201508/09/2015 Inactive Diflucan 150 mg tablet RxNorm: 001888 1 Tablet(s) PO daily take after you finish cipro 08/03/2015 08/02/2015 Inactive Diflucan 150 mg tablet RxNorm: 704458 1 Tablet(s) PO daily take after you finish cipro 08/03/2015 08/09/2015 Inactive Coreg 6.25 mg tablet RxNorm: 672006 1 Tablet(s) PO BID 201409/20/2015 Inactive levothyroxine 50 mcg tablet RxNorm: 644305 1 Tablet(s) PO daily 05/19/2015 09/20/2015 Inactive fluoxetine 20 mg capsule RxNorm: 224872 1 Capsule(s) PO daily 03/26/2015 09/20/2015 Inactive duloxetine 30 mg capsule,delayed release RxNorm: 951564 1 CAPSULE(S) PO QHS 03/22/2015 09/20/2015 Inactive doxycycline hyclate 100 mg capsule RxNorm: 1325317 1 Capsule(s) PO BID 02/25/2015 03/06/2015 Inactive doxycycline hyclate 100 mg capsule RxNorm: 8010499 1 Capsule(s) PO BID 02/25/2015 02/24/2015 Inactive gabapentin 300 mg capsule RxNorm: 898723 1 Capsule(s) PO BID 01/05/2016 Inactive take one capsule by mouth every 6 hours as needed and 1 capsule bymouth every night at bedtime meloxicam 15 mg tablet RxNorm: 174842 1 Tablet(s) PO daily 06/201409/20/2015 Inactive duloxetine 30 mg capsule,delayed release RxNorm: 039394 1 Capsule(s) PO QHS 12/23/2014 03/21/2015 Inactive duloxetine 30 mg capsule,delayed release RxNorm: 500295 1 Capsule(s) PO QHS No Start Date 12/22/2014 Inactive oxybutynin chloride ER 15 mg tablet,extended release 24 hr RxNorm: 197997 1 Tablet (s) PO daily No Start Date 01/05/2016 Inactive lysine 500 mg tablet RxNorm: 077478 1 Tablet(s) PO daily No Start Date 01/05/2016 Inactive cholecalciferol (vitamin D3) 2,000 unit capsule RxNorm: 360039 2 Capsule(s) PO daily No Start Date 09/06/2015 Inactive oxycodone-acetaminophen 5 mg-325 mg tablet RxNorm: 4215442 1to 2 Tablet(s) PO Q4H as needed No Start Date 01/05/2016 Inactive acyclovir 400 mg tablet RxNorm: 131398 1 Tablet(s) PO daily No Start Date 09/20/2015 Inactive dexlansoprazole 60 mg capsule,biphase delayed release RxNorm: 005690 1 Capsule(s) PO BID No Start Date 10/31/2016 Inactive fluoxetine 20 mg capsule RxNorm: 918425 1 Capsule(s) PO daily No Start Date 03/25/2015 Inactive gabapentin 300 mg capsule RxNorm: 856838 1 Capsule(s) PO BID No Start Date 12/22/2014 Inactive meloxicam 15 mg tablet RxNorm: 262552 1 Tablet(s) PO daily No Start Date 12/22/2014 Inactive levothyroxine 50 mcg tablet RxNorm: 318296 1 Tablet(s) PO daily No Start Date 05/18/2015 Inactive duloxetine 60 mg capsule,delayed release RxNorm: 197351 1 Capsule(s) PO QHS No Start Date 09/20/2015 Inactive estradiol 1 mg tablet RxNorm: 850437 1 Tablet(s) PO daily No Start Date 10/31/2016 Inactive multivitamin with iron tablet RxNorm: 1 Tablet(s) PO daily No Start Date 09/06/2015 Inactive Medication Administered No Medication Administered data Immunizations Vaccine Codes Date Status Influenza CVX: 141 03/04/2018 completed Influenza CVX: 141 04/30/2017 completed Influenza CVX: 141 03/25/2014 completed Tetanus, Diptheria, Pertussis CVX: 113 completed Tetanus/Diptheria CVX: 113 06/25/1997 completed Assessments Condition Codes Effective Dates Essential (primary) hypertension ICD-10: I10 ICD-9: 401.1 05/30/2018 Atrophy of thyroid (acquired) ICD-10: E03.4 ICD-9: 244.8 05/30/2018 Pain in left foot ICD-10: M79.672 ICD-9: 729.5 05/30/2018 Adverse effect of sulfonamides, initial encounter ICD-10: T37.0X5A ICD-9: E931.0 03/26/2018 Allergic urticaria ICD-10: L50.0 ICD-9: 708.0 03/26/2018 Laceration without foreign body of left hand, initial encounter ICD-10: S61.412A ICD-9: 883.1 03/22/2018 VACCIN FOR INFLUENZA ICD-10: Z23 ICD-9: V04.81 03/04/2018 Major depressive disorder, recurrent, moderate ICD-10: F33.1 ICD-9: 296.32 03/04/2018 Low back pain ICD-10: M54.5 ICD-9: 724.2 02/18/2018 Muscle spasm of back ICD-10: M62.830 ICD-9: 724.8 02/18/2018 Other chronic pain ICD-10: G89.29 ICD-9: 338.29 11/05/2017 Encounter for general adult medical examination without abnormal findings ICD-10: Z00.00 ICD-9: V70.0 11/05/2017 Pain in left hand ICD-10: M79.642 ICD-9: [...] Visit Reason For Visit Effective Dates Notes pre-op/surgery consult 05/30/2018 rash 03/26/2018 laceration of the hand 03/22/2018 hypothyroid 03/04/2018 flank pain 02/18/2018 hypothyroid 11/05/2017 hypothyroid 07/13/2017 vaccination against influenza 04/30/2017 hypothyroid 03/06/2017 thumb and hand pain 12/13/2016 hypothyroid 11/01/2016 hypothyroid 07/04/2016 hypothyroid 03/07/2016 hypothyroid 01/06/2016 gastroesophageal reflux 09/07/2015 gastroesophageal reflux 12/01/2014 Results Observation Observation Code Item Item Code Result Date Free T4 Wko805 FREE T4 0.68 ng/dL 11/23/2017 Tsh Ord6 [...] 13.3 g/dl 11/23/2017 Cbc With Differential Ord2 HCT 40.8 % 11/23/2017 Cbc With Differential Ord2 Neut% 46.9 % 11/23/2017 Cbc With Differential Ord2 MCV 92.7 fl 11/23/2017 Cbc With Differential Ord2 Lymph% 33.9 % 11/23/2017 Cbc With Differential Ord2 MCH 30.2 pg 11/23/2017 Cbc With Differential Ord2 [place]% 15.1 % 11/23/2017 Cbc With Differential Ord2 MCHC 32.6 pg 11/23/2017 Cbc With Differential Ord2 Eos% 3.9 % 11/23/2017 Cbc With Differential Ord2 PLT 248 K/ul 11/23/2017 Cbc With Differential Ord2 Baso% 0.2 % 11/23/2017 Cbc With Differential Ord2 RDW 13.4 % 11/23/2017 Cbc With Differential Ord2 Neut ABS# 2.52 K/ul 11/23/2017 Cbc With Differential Ord2 Lymph ABS# 1.82 K/ul 11/23/2017 Cbc With Differential Ord2 [place] ABS# 0.8 K/ul 11/23/2017 Cbc With Differential Ord2 Eos ABS# 0.2 K/ul 11/23/2017 Cbc With Differential Ord2 Baso ABS# 0.0 K/ul 11/23/2017 Comp Metabolic Qud552 NA 139 mEq/L 11/23/2017 Comp Metabolic Cxi258 K 4.4 mEq/L 11/23/2017 Comp Metabolic Cra444 CL 107 mEq/L 11/23/2017 Comp Metabolic Kht821 CO2 26.0 mEq/L 11/23/2017 Comp Metabolic Syy302 ANION GAP 10 11/23/2017 Comp Metabolic Hse082 GLUCOSE 108 mg/dL 11/23/2017 Comp Metabolic Opn333 Creat 0.6 mg/dL 11/23/2017 Comp Metabolic Syy910 eGFR 118 ml/min/1.73m2 11/23/2017 Comp Metabolic Zkz233 BUN 24 mg/dL 11/23/2017 Comp Metabolic Sda860 B/C Ratio 42.9 Ratio 11/23/2017 Comp Metabolic Zka644 CALCIUM 9.0 mg/dL 11/23/2017 Comp Metabolic Pjh122 ALK PHOS 72 U/L 11/23/2017 Comp Metabolic Yoz173 AST(SGOT) 17 U/L 11/23/2017 Comp Metabolic Sya578 ALT(SGPT) 12 U/L 11/23/2017 Comp Metabolic Qiv194 BILI T 0.4 mg/dL 11/23/2017 Comp Metabolic Gbc169 ALBUMIN 3.9 g/dL 11/23/2017 Comp Metabolic Qty146 TPRO 5.9 g/dL 11/23/2017 Comp Metabolic How521 GLOB 2.0 g/dL 11/23/2017 Comp Metabolic Pxz315 A/G Ratio 2.0 Ratio 11/23/2017 Comp Metabolic Wwa938 Osmo 282 mOsmo 11/23/2017 Hepatitis Panel (Abc) 48588 HEPATITIS B SURFACE AG . 05/2017 Hepatitis Panel (Abc) 26475 HEPATITIS B SURFACE AG NEGATIVE 10/04/2016 Hepatitis Panel (Abc) 56987 HEPATITIS B CORE AB, IGM . Hepatitis Panel (Abc) 38547 HEPATITIS B CORE AB, IGM NEGATIVE 10/04/2016 Hepatitis Panel (Abc) 49637 HEPATITIS A AB, IGM . 2016 Hepatitis Panel (Abc) 18582 HEPATITIS A AB, IGM NEGATIVE 05/2017 Hepatitis Panel (Abc) 45187 HEPATITIS C ANTIBODY . 2016 Hepatitis Panel (Abc) 76996 HEPATITIS C ANTIBODY NEGATIVE 05/2017 Comp Metabolic Qxd424 NA 137 mEq/L 03/07/2016 Comp Metabolic Abd967 K 3.9 mEq/L 03/07/2016 Comp Metabolic Vgm775 CL 103 mEq/L 03/07/2016 Comp Metabolic Mwz262 CO2 27.0 mEq/L 03/07/2016 Comp Metabolic Ouw645 ANION GAP 11 03/07/2016 Comp Metabolic Ipl295 GLUCOSE 116 mg/dL 03/07/2016 Comp Metabolic Jvp033 Creat 0.7 mg/dL 03/07/2016 Comp Metabolic Vef049 eGFR 98 ml/min/1.73m2 03/07/2016 Comp Metabolic Eqg448 BUN 20 mg/dL 03/07/2016 Comp Metabolic Jml683 B/C Ratio 30.3 Ratio 03/07/2016 Comp Metabolic Csc193 CALCIUM 9.3 mg/dL 03/07/2016 Comp Metabolic Jsz258 ALK PHOS 87 U/L 03/07/2016 Comp Metabolic Aoz570 AST(SGOT) 14 U/L 03/07/2016 Comp Metabolic Wkf493 ALT(SGPT) 10 U/L 03/07/2016 Comp Metabolic Pmk386 BILI T 0.3 mg/dL 03/07/2016 Comp Metabolic Xnl643 ALBUMIN 4.3 g/dL 03/07/2016 Comp Metabolic Ywo513 TPRO 6.4 g/dL 03/07/2016 Comp Metabolic Cna595 GLOB 2.1 g/dL 03/07/2016 Comp Metabolic Obp251 A/G Ratio 2.0 Ratio 03/07/2016 Comp Metabolic Rre436 Osmo 277 mOsmo 03/07/2016 Cbc With Differential [...] 29.8 pg 03/07/2016 Cbc With Differential Ord2 [place]% 9.5 % 03/07/2016 Cbc With Differential Ord2 MCHC 32.7 pg 03/07/2016 Cbc With Differential Ord2 Eos% 2.6 % 03/07/2016 Cbc With Differential Ord2 PLT 270 K/ul 03/07/2016 Cbc With Differential Ord2 Baso% 0.4 % 03/07/2016 Cbc With Differential Ord2 RDW 13.6 % 03/07/2016 Cbc With Differential Ord2 Neut ABS# 4.54 K/ul 03/07/2016 Cbc With Differential Ord2 Lymph ABS# 2.77 K/ul 03/07/2016 Cbc With Differential Ord2 [place] ABS# 0.8 K/ul 03/07/2016 Cbc With Differential Ord2 Eos ABS# 0.2 K/ul 03/07/2016 Cbc With Differential Ord2 Baso ABS# 0.0 K/ul 03/07/2016 Tsh Ord6 hTSH II 0.93 uIU/mL 03/07/2016 T4 Ord4 T4 6.0 ug/dL 03/07/2016 Free T4 Pzk506 FREE T4 0.65 ng/dL 08/27/2015 Comp Metabolic Irr793 NA 137 mEq/L 08/27/2015 Comp Metabolic Trx015 K 4.5 mEq/L 08/27/2015 Comp Metabolic Cdu762 CL 104 mEq/L 08/27/2015 Comp Metabolic Rbo322 CO2 26.0 mEq/L 08/27/2015 Comp Metabolic Faa944 ANION GAP 12 08/27/2015 Comp Metabolic Vhn599 GLUCOSE 101 mg/dL 08/27/2015 Comp Metabolic Opy063 Creat 0.5 mg/dL 08/27/2015 Comp Metabolic Yhl048 eGFR 124 ml/min/1.73m2 08/27/2015 Comp Metabolic Tgd040 BUN 16 mg/dL 08/27/2015 Comp Metabolic Xnp974 B/C Ratio 29.6 Ratio 08/27/2015 Comp Metabolic Hjl497 CALCIUM 9.1 mg/dL 08/27/2015 Comp Metabolic Xop883 ALK PHOS 79 U/L 08/27/2015 Comp Metabolic Wnn252 AST(SGOT) 15 U/L 08/27/2015 Comp Metabolic Tok243 ALT(SGPT) 12 U/L 08/27/2015 Comp Metabolic Lot577 BILI T 0.7 mg/dL 08/27/2015 Comp Metabolic Hdi859 ALBUMIN 4.2 g/dL 08/27/2015 Comp Metabolic Sij539 TPRO 6.3 g/dL 08/27/2015 Comp Metabolic Fdr839 GLOB 2.1 g/dL 08/27/2015 Comp Metabolic Lqv815 A/G Ratio 2.0 Ratio 08/27/2015 Comp Metabolic Xsp814 Osmo 275 mOsmo 08/27/2015 Lipid Ord30 CHOL [...] 29.1 % 08/27/2015 Cbc With Differential Ord2 MCH 29.4 pg 08/27/2015 Cbc With Differential Ord2 [place]% 12.5 % 08/27/2015 Cbc With Differential Ord2 MCHC 32.3 pg 08/27/2015 Cbc With Differential Ord2 Eos% 3.0 % 08/27/2015 Cbc With Differential Ord2 PLT 279 K/ul 08/27/2015 Cbc With Differential Ord2 Baso% 0.3 % 08/27/2015 Cbc With Differential Ord2 RDW 13.7 % 08/27/2015 Cbc With Differential Ord2 Neut ABS# 3.32 K/ul 08/27/2015 Cbc With Differential Ord2 Lymph ABS# 1.75 K/ul 08/27/2015 Cbc With Differential Ord2 [place] ABS# 0.8 K/ul 08/27/2015 Cbc With Differential Ord2 Eos ABS# 0.2 K/ul 08/27/2015 Cbc With Differential Ord2 Baso ABS# 0.0 K/ul 08/27/2015 Cbc With Differential Ord2 New Analyzer Notice Please note new ref ranges starting 07-07-2015 due to implemntation of new five part differential hematolgy analyzer. 08/27/2015 Tsh Ord6 hTSH II 0.39 uIU/mL 08/27/2015 Culture Urine [id number] URINE CULTURE SEE NOTES 08/06/2015 Culture Urine [id number] Continued Results 08/06/2015 Urine Culture Ucult Complete >100,000 col/ml aerobic growth sent to ref lab 08/04/2015 Review of Systems System Result Effective Dates Constitutional No chills 05/30/2018 Constitutional fatigue 05/30/2018 Constitutional No fever 05/30/2018 Constitutional No insomnia 05/30/2018 Constitutional No malaise 05/30/2018 Eyes No blindness 05/30/2018 Eyes No vision change 05/30/2018 Ears/Nose/Throat/Neck No dental pain 11/2017 Ears/Nose/Throat/Neck No dizziness 2017 Ears/Nose/Throat/Neck No dysphagia 2017 Ears/Nose/Throat/Neck No headache 2017 Ears/Nose/Throat/Neck No hearing loss 11/2017 Ears/Nose/Throat/Neck No nasal allergies 05/30/2018 Ears/Nose/Throat/Neck No sore throat 11/2017 Ears/Nose/Throat/Neck No postnasal drip 05/30/2018 Ears/Nose/Throat/Neck No sinus congestion 05/30/2018 Cardiovascular No chest pain/pressure 11/2017 Cardiovascular No dyspnea 05/30/2018 Cardiovascular No edema 05/30/2018 Cardiovascular No exercise intolerance Cardiovascular No fatigue 05/30/2018 Cardiovascular No near-syncope/dizziness 05/30/2018 Respiratory No chest tightness 2017 Respiratory No cough 05/30/2018 Respiratory No dyspnea 05/30/2018 Respiratory No pedal edema 05/30/2018 Gastrointestinal No abdominal pain 2017 Gastrointestinal No constipation 2017 Gastrointestinal No diarrhea 05/30/2018 Gastrointestinal No gastroesophageal reflux 05/30/2018 Gastrointestinal No nausea 05/30/2018 Gastrointestinal No vomiting 05/30/2018 Genitourinary/Nephrology No dysuria 05/30 Genitourinary/Nephrology No nocturia 11/2017 Genitourinary/Nephrology No urinary incontinence 05/30/2018 Musculoskeletal stiffness 05/30/2018 Musculoskeletal arthralgia(s) 05/30/2018 Musculoskeletal bone pain 05/30/2018 Musculoskeletal No muscle weakness 2017 Musculoskeletal No myalgias 05/30/2018 Dermatologic No rash 05/30/2018 Dermatologic No sores 05/30/2018 Neurologic No dizziness 05/30/2018 Neurologic No headache 05/30/2018 Neurologic No neck pain 05/30/2018 Neurologic No syncope 05/30/2018 Psychiatric anxiety 05/30/2018 Psychiatric depression 05/30/2018 Psychiatric disturbances of emotion 05/30 Constitutional recent illness 03/26/2018 Constitutional No anorexia 03/26/2018 Constitutional No night sweats 2017 Constitutional No chills 03/26/2018 Constitutional No diaphoresis 03/26/2018 Constitutional No fatigue 03/26/2018 Constitutional No fever 03/26/2018 Constitutional No insomnia 03/26/2018 Constitutional No malaise 03/26/2018 Constitutional No weight loss 03/26/2018 Constitutional No weight gain 03/26/2018 Dermatologic rash 03/26/2018 Neurologic No alteration of consciousness 03/26/2018 Cardiovascular No chest pain/pressure 07/2017 Respiratory No chest tightness 2017 Respiratory No dyspnea on exertion 2017 Respiratory No dyspnea 03/26/2018 Gastrointestinal No vomiting 03/26/2018 Gastrointestinal No constipation 2017 Gastrointestinal No diarrhea 03/26/2018 Ears/Nose/Throat/Neck headache 2017 Musculoskeletal No joint complaint 2017 Genitourinary/Nephrology No dysuria 03/26 Constitutional No recent illness 2017 Constitutional No anorexia 03/22/2018 Constitutional No night sweats 2017 Constitutional No chills 03/22/2018 Constitutional No diaphoresis 03/22/2018 Constitutional No fatigue 03/22/2018 Constitutional No fever 03/22/2018 Constitutional No insomnia 03/22/2018 Constitutional No malaise 03/22/2018 Constitutional No weight loss 03/22/2018 Constitutional No weight gain 03/22/2018 Dermatologic laceration 03/22/2018 Constitutional No chills 03/04/2018 Constitutional fatigue 03/04/2018 Constitutional No fever 03/04/2018 Constitutional No insomnia 03/04/2018 Constitutional No malaise 03/04/2018 Eyes No blindness 03/04/2018 Eyes No vision change 03/04/2018 Ears/Nose/Throat/Neck No dental pain 03/2018 Ears/Nose/Throat/Neck No dizziness 2017 Ears/Nose/Throat/Neck No dysphagia 2017 Ears/Nose/Throat/Neck No headache 2017 Ears/Nose/Throat/Neck No hearing loss 03/2018 Ears/Nose/Throat/Neck No nasal allergies 03/04/2018 Ears/Nose/Throat/Neck No sore throat 03/2018 Ears/Nose/Throat/Neck No postnasal drip 03/04/2018 Ears/Nose/Throat/Neck No sinus congestion 03/04/2018 Cardiovascular No chest pain/pressure 03/2018 Cardiovascular No dyspnea 03/04/2018 Cardiovascular No edema 03/04/2018 Cardiovascular No exercise intolerance Cardiovascular No fatigue 03/04/2018 Cardiovascular No near-syncope/dizziness 03/04/2018 Respiratory No chest tightness 2017 Respiratory No cough 03/04/2018 Respiratory No dyspnea 03/04/2018 Respiratory No pedal edema 03/04/2018 Gastrointestinal No abdominal pain 2017 Gastrointestinal No constipation 2017 Gastrointestinal No diarrhea 03/04/2018 Gastrointestinal No gastroesophageal reflux 03/04/2018 Gastrointestinal No nausea 03/04/2018 Gastrointestinal No vomiting 03/04/2018 Genitourinary/Nephrology No dysuria 03/04 Genitourinary/Nephrology No nocturia 03/2018 Genitourinary/Nephrology No urinary incontinence 03/04/2018 Musculoskeletal stiffness 03/04/2018 Musculoskeletal arthralgia(s) 03/04/2018 Musculoskeletal bone pain 03/04/2018 Musculoskeletal No muscle weakness 2017 Musculoskeletal No myalgias 03/04/2018 Dermatologic No rash 03/04/2018 Dermatologic No sores 03/04/2018 Neurologic No dizziness 03/04/2018 Neurologic No headache 03/04/2018 Neurologic No neck pain 03/04/2018 Neurologic No syncope 03/04/2018 Psychiatric anxiety 03/04/2018 Psychiatric depression 03/04/2018 Psychiatric disturbances of emotion 03/04 Constitutional recent illness 02/18/2018 Constitutional fatigue 02/18/2018 Constitutional No fever 02/18/2018 Psychiatric No anxiety 02/18/2018 Psychiatric No depression 02/18/2018 Musculoskeletal stiffness 02/18/2018 Musculoskeletal back pain 02/18/2018 Musculoskeletal myalgias 02/18/2018 Respiratory No electronic cigarettes/Vapor 02/18/2018 Respiratory No dyspnea 02/18/2018 Respiratory No pedal edema 02/18/2018 Cardiovascular No chest pain/pressure Cardiovascular No edema 02/18/2018 Constitutional recent illness 11/05/2017 Constitutional No chills [...] 1994 Constitutional general appearance Development: well developed 05/30/2018 None Full Exam - General 1994 Constitutional general appearance Development: appears stated age 1205/30/2018 None Full Exam - General 1994 Constitutional general appearance Hygiene/Attention to Grooming: good hygiene 05/30/2018 None Full Exam - General 1994 Eyes conjunctiva /eyelids Overall: conjunctiva clear 05/30/2018 None Full Exam - General 1994 Eyes conjunctiva /eyelids Overall: cornea clear 05/30/2018 None Full Exam - General 1994 Eyes conjunctiva /eyelids Overall: eyelids normal 05/30/2018 None Full Exam - General 1994 Eyes pupils and irises Overall: pupils equal, round, reactive to light and accomodation 05/30/2018 None Full Exam - General 1994 Ears/Nose/Throat otoscopic exam Overall: external auditory canals clear 05/30/2018 None Full Exam - General 1994 Ears/Nose/Throat otoscopic exam Overall: tympanic membranes clear 05/30/2018 None Full Exam - General 1994 Ears/Nose/Throat lips/teeth/gingiva Overall: benign lips 05/30/2018 None Full Exam - General 1994 Ears/Nose/Throat lips/teeth/gingiva Overall: normal dentition 05/30/2018 None Full Exam - General 1994 Ears/Nose/Throat oral cavity/pharynx/larynx Overall: oral mucosa clear 05/30/2018 None Full Exam - General 1994 Ears/Nose/Throat oral cavity/pharynx/larynx Overall: oropharyngeal mucosa clear 05/30/2018 None Full Exam - General 1994 Ears/Nose/Throat oral cavity/pharynx/larynx Overall: hypopharynx benign 05/30/2018 None Full Exam - General 1994 Ears/Nose/Throat oral cavity/pharynx/larynx Overall: no masses 05/30/2018 None Full Exam - General 1994 Respiratory auscultation Overall: breath sounds clear bilaterally 05/30/2018 None Full Exam - General 1994 Respiratory respiratory effort/rhythm Overall: no retractions 05/30/2018 None Full Exam - General 1994 Respiratory respiratory effort/rhythm Overall: normal rate 05/30/2018 None Full Exam - General 1994 Cardiovascular extremities Overall: no clubbing 05/30/2018 None Full Exam - General 1994 Cardiovascular auscultation of heart Overall: regular rate 05/30/2018 None Full Exam - General 1994 Cardiovascular auscultation of heart Overall: normal heart sounds 05/30/2018 None Full Exam - General 1994 Abdomen abdominal exam Overall: no tenderness 05/30/2018 None Full Exam - General 1994 Abdomen abdominal exam Overall: normal bowel sounds 05/30/2018 None Full Exam - General 1994 Musculoskeletal digits and nails DIPs: fifth 05/30/2018 None Full Exam - General 1994 Musculoskeletal lower extremity Palpation - thigh: tenderness 05/30/2018 right greater trochanteric bursal inflammation Full Exam - General 1994 Musculoskeletal spine, ribs and pelvis Overall: spine benign 05/30/2018 None Full Exam - General 1994 Musculoskeletal spine, ribs and pelvis Overall: sacroiliac joint benign 05/30/2018 None Full Exam - General 1994 Musculoskeletal spine, ribs and pelvis Overall: good posture 05/30/2018 None Full Exam - General 1994 Musculoskeletal head and neck Overall: head atraumatic 05/30/2018 None Full Exam - General 1994 Musculoskeletal head and neck Overall: cervical spine benign 05/30/2018 None Full Exam - General 1994 Neurologic cranial nerves Overall: crainial nerves 2 - 12 grossly intact 05/30/2018 None Full Exam - General 1994 Psychiatric orientation/consciousness Overall: oriented to person, place and time 05/30/2018 None Full Exam - General 1994 Psychiatric mood and affect Overall: normal mood and affect 05/30/2018 None Full Exam - Dermatology Constitutional general appearance Overall: well nourished 03/26/2018 None Full Exam - Dermatology Constitutional general appearance Overall: well developed 03/26/2018 None Full Exam - Dermatology Constitutional general appearance Overall: in no acute distress 03/26/2018 None Full Exam - Dermatology Constitutional general appearance Overall: of normal body habitus 03/26/2018 None Full Exam - Dermatology Constitutional general appearance Overall: well groomed 03/26/2018 None Full Exam - Dermatology Psychiatric orientation Overall: oriented to person, place and time 03/26/2018 None Full Exam - Dermatology Integument insp & palp - abdomen Location: on the lower abdomen 03/26/2018 None Full Exam - Dermatology Integument insp & palp - abdomen Lesion: wheal 03/26/2018 x 2 to lower abdomen Full Exam - Dermatology Respiratory auscultation Overall: breath sounds clear bilaterally 03/26/2018 None Full Exam - Dermatology Respiratory respiratory effort/rhythm Overall: no retractions 03/26/2018 None Full Exam - Dermatology Respiratory respiratory effort/rhythm Overall: normal rate 03/26/2018 None Full Exam - Dermatology Cardiovascular peripheral vascular system Overall: S1S2 03/26/2018 None Full Exam - Dermatology Cardiovascular peripheral vascular system Overall: warm extremities 03/26/2018 None Full Exam - Dermatology Cardiovascular peripheral vascular system Overall: no edema 03/26/2018 None Full Exam - Dermatology Cardiovascular peripheral vascular system Overall: no tenderness 03/26/2018 None Full Exam - Dermatology Cardiovascular peripheral vascular system Overall: no varicosities 03/26/2018 None Full Exam - Dermatology Constitutional general appearance Overall: well nourished 03/22/2018 None Full Exam - Dermatology Constitutional general appearance Overall: well developed 03/22/2018 None Full Exam - Dermatology Constitutional general appearance Overall: in no acute distress 03/22/2018 None Full Exam - Dermatology Constitutional general appearance Overall: of normal body habitus 03/22/2018 None Full Exam - Dermatology Constitutional general appearance Overall: well groomed 03/22/2018 None Full Exam - Dermatology Psychiatric orientation Overall: oriented to person, place and time 03/22/2018 None Full Exam - Dermatology Integument insp & palp - left upper extremity Location: on the hand 03/22/2018 3cm superficial laceration thenar eminence left hand Full Exam - General 1994 Constitutional general appearance Development: well developed 03/04/2018 None Full Exam - General 1994 Constitutional general appearance Development: appears stated age 0903/04/2018 None Full Exam - General 1994 Constitutional general appearance Hygiene/Attention to Grooming: good hygiene 03/04/2018 None Full Exam - General 1994 Eyes conjunctiva /eyelids Overall: conjunctiva clear 03/04/2018 None Full Exam - General 1994 Eyes conjunctiva /eyelids Overall: cornea clear 03/04/2018 None Full Exam - General 1994 Eyes conjunctiva /eyelids Overall: eyelids normal 03/04/2018 None Full Exam - General 1994 Eyes pupils and irises Overall: pupils equal, round, reactive to light and accomodation 03/04/2018 None Full Exam - General 1994 Ears/Nose/Throat otoscopic exam Overall: external auditory canals clear 03/04/2018 None Full Exam - General 1994 Ears/Nose/Throat otoscopic exam Overall: tympanic membranes clear 03/04/2018 None Full Exam - General 1994 Ears/Nose/Throat lips/teeth/gingiva Overall: benign lips 03/04/2018 None Full Exam - General 1995 Ears/Nose/Throat lips/teeth/gingiva Overall: normal dentition 03/04/2018 None Full Exam - General 1995 Ears/Nose/Throat oral cavity/pharynx/larynx Overall: oral mucosa clear 03/04/2018 None Full Exam - General 1995 Ears/Nose/Throat oral cavity/pharynx/larynx Overall: oropharyngeal mucosa clear 03/04/2018 None Full Exam - General 1994 Ears/Nose/Throat oral cavity/pharynx/larynx Overall: hypopharynx benign 03/04/2018 None Full Exam - General 1994 Ears/Nose/Throat oral cavity/pharynx/larynx Overall: no masses 03/04/2018 None Full Exam - General 1994 Respiratory auscultation Overall: breath sounds clear bilaterally 03/04/2018 None Full Exam - General 1994 Respiratory respiratory effort/rhythm Overall: no retractions 03/04/2018 None Full Exam - General 1994 Respiratory respiratory effort/rhythm Overall: normal rate 03/04/2018 None Full Exam - General 1994 Cardiovascular extremities Overall: no clubbing 03/04/2018 None Full Exam - General 1994 Cardiovascular auscultation of heart Overall: regular rate 03/04/2018 None Full Exam - General 1994 Cardiovascular auscultation of heart Overall: normal heart sounds 03/04/2018 None Full Exam - General 1994 Abdomen abdominal exam Overall: no tenderness 03/04/2018 None Full Exam - General 1994 Abdomen abdominal exam Overall: normal bowel sounds 03/04/2018 None Full Exam - General 1994 Musculoskeletal digits and nails DIPs: fifth 03/04/2018 None Full Exam - General 1994 Musculoskeletal lower extremity Palpation - thigh: tenderness 03/04/2018 right greater trochanteric bursal inflammation Full Exam - General 1994 Musculoskeletal spine, ribs and pelvis Overall: spine benign 03/04/2018 None Full Exam - General 1994 Musculoskeletal spine, ribs and pelvis Overall: sacroiliac joint benign 03/04/2018 None Full Exam - General 1994 Musculoskeletal spine, ribs and pelvis Overall: good posture 03/04/2018 None Full Exam - General 1994 Musculoskeletal head and neck Overall: head atraumatic 03/04/2018 None Full Exam - General 1994 Musculoskeletal head and neck Overall: cervical spine benign 03/04/2018 None Full Exam - General 1994 Neurologic cranial nerves Overall: crainial nerves 2 - 12 grossly intact 03/04/2018 None Full Exam - General 1994 Psychiatric orientation/consciousness Overall: oriented to person, place and time 03/04/2018 None Full Exam - General 1994 Psychiatric mood and affect Overall: normal mood and affect 03/04/2018 None Full Exam - General 1994 Constitutional general appearance Overall: well nourished 02/18/2018 None Full Exam - General 1994 Constitutional general appearance Overall: well developed 02/18/2018 None Full Exam - General 1994 Constitutional general appearance Overall: in no acute distress 02/18/2018 None Full Exam - General 1994 Respiratory auscultation Overall: breath sounds clear bilaterally 02/18/2018 None Full Exam - General 1994 Respiratory respiratory effort/rhythm Overall: normal rate 02/18/2018 None Full Exam - General 1994 Respiratory respiratory effort/rhythm Overall: no retractions 02/18/2018 None Full Exam - General 1994 Cardiovascular auscultation of heart Overall: regular rate 02/18/2018 None Full Exam - General 1994 Cardiovascular auscultation of heart Overall: normal heart sounds 02/18/2018 None Full Exam - General 1994 Cardiovascular auscultation of heart Overall: no murmurs 02/18/2018 None Full Exam - General 1994 Cardiovascular extremities Overall: no clubbing 02/18/2018 None Full Exam - General 1994 Psychiatric orientation/consciousness Overall: oriented to person, place and time 02/18/2018 None Full Exam - General 1994 Psychiatric mood and affect Mood: happy 02/18/2018 None Full Exam - General 1994 Psychiatric mood and affect Overall: normal mood and affect 02/18/2018 None Full Exam - General 1994 Constitutional [...] scar 12/01/2014 None Procedures Procedure Codes Date IMMUNIZATION ADMIN CPT -4: 31259 03/04/2018 FLU VAC NO PRSV 4 WEI 3 YRS+ CPT-4: 37944 03/04/2018 URINALYSIS NONAUTO W/O SCOPE CPT-4: 63453 02/18/2018 FLU VAC NO PRSV 4 WEI 3 YRS+ CPT-4: 77222 04/30/2017 IMMUNIZATION ADMIN CPT -4: 73540 04/30/2017 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[address]: 999985568 CPT-4: G0436 03/06/2017 URINALYSIS NONAUTO W/O SCOPE CPT-4: 31683 03/07/2016 URINALYSIS NONAUTO W/O SCOPE CPT-4: 68807 08/03/2015 Vital Signs Date Vital 05/30/2018 Blood Pressure 1: 132/76 Code : 8480-6 BMI: 23.5 Code : 97542-5 Heart Rate 1 : 66 bpm Height: 5'4" SpO2: 97% Weight: 137 lbs 03/26/2018 Blood Pressure 1: 138/80 Code : 8480-6 Heart Rate 1: 82 bpm Height: 5'4" SpO2: 98% Weight: 03/22/2018 Blood Pressure 1: 122/68 Code : 8480-6 BMI: 23.7 Code : 24476-6 Heart Rate 1 : 62 bpm Height: 5'4" SpO2: 98% Weight: 138 lbs 03/04/2018 Blood Pressure 1: 124/74 Code : 8480-6 BMI: 23.9 Code : 39933-8 Heart Rate 1 : 94 bpm Height: 5'4" SpO2: 98% Weight: 139 lbs 02/18/2018 Blood Pressure 1: 120/80 Code : 8480-6 BMI: 23.5 Code : 86439-4 Heart Rate 1 : 80 bpm Height: 5'4" SpO2: 98% Weight: 137 lbs 11/05/2017 Blood Pressure 1: 124/70 Code : 8480-6 BMI: 24.0 Code : 48801-2 Heart Rate 1 : 70 bpm Height: 5'4" SpO2: 98% Weight: 140 lbs 07/13/2017 Blood Pressure 1: 126/82 Code : 8480-6 BMI: 23.7 Code : 45696-4 Heart Rate 1 : 80 bpm Height: 5'4" SpO2: 97% Weight: 138 lbs 03/06/2017 Blood Pressure 1: 120/76 Code : 8480-6 BMI: 23.3 Code : 28605-6 Heart Rate 1 : 79 bpm Height: 5'4" SpO2: 97% Weight: 136 lbs 12/13/2016 Blood Pressure 1: 132/80 Code : 8480-6 BMI: 23.3 Code : 05512-6 Heart Rate 1 : 88 bpm Height: 5'4" SpO2: 97% Weight: 136 lbs 11/01/2016 Blood Pressure 1: 128/76 Code : 8480-6 BMI: 23.5 Code : 80304-7 Heart Rate 1 : 77 bpm Height: 5'4" SpO2: 98% Weight: 137 lbs 07/04/2016 Blood Pressure 1: 132/86 Code : 8480-6 BMI: 22.8 Code : 37581-5 Heart Rate 1 : 71 bpm Height: 5'4" SpO2: 98% Weight: 133 lbs 03/07/2016 Blood Pressure 1: 118/70 Code : 8480-6 BMI: 23.0 Code : 96792-5 Heart Rate 1 : 76 bpm Height: 5'4" SpO2: 98% Temperature: 37.1 (C) / 98.7 (F) Weight: 134 lbs 01/06/2016 Blood Pressure 1: 130/78 Code : 8480-6 BMI: 23.7 Code : 01525-0 Heart Rate 1 : 76 bpm Height: 5'4" SpO2: 98% Weight: 138 lbs 09/07/2015 Blood Pressure 1: 118/78 Code : 8480-6 BMI: 24.7 Code : 63154-6 Heart Rate 1 : 81 bpm Height: 5'4" SpO2: 97% Weight: 144 lbs 12/01/2014 Blood Pressure 1: 145/70 Code : 8480-6 BMI: 24.9 Code : 44328-4 Heart Rate 1 : 88 bpm Height: 5'4" Respiratory Rate: 16 bpm Weight: 145 lbs Functional Status No Functional Status data History of Present Illness Symptom Name Status Result Effective Date Notes Referred by Dr. rosales 05/30/2018 None Procedure to be performed cyst removal to left foot 05/30/2018 None Location at the level of the thyroid 05/30/2018 None Quality chronic 05/30 None Onset and Resolution ongoing 05/30/2018 None Alleviating Factors medication 05/30/2018 None Quality chronic 05/30 None Quality stable 2017 None rash Location-Major on the back 03/26/2018 None rash Location-Major on the chest 03/26/2018 None rash Location-Major on the abdomen 03/26/2018 None rash Quality acute 07/2017 None rash Onset and Resolution sudden in onset 03/26/2018 None rash Color erythematous 03/26/2018 None rash Quality pruritic 03/26/2018 None rash Onset of Symptom yesterday 03/26/2018 None rash Triggers certain medications 03/26/2018 (bactrim) laceration of the hand Location on the left 03/22/2018 None laceration of the hand Quality acute 03/22/2018 None laceration of the hand Onset of Symptom 1 days ago 03/22/2018 None laceration of the hand Limitation on Activities does not limit activities 03/22/2018 None laceration of the hand Severity mild 03/22/2018 None laceration of the hand Pertinent Findings Denies fever 03/22/2018 None hypothyroid Location at the level of the thyroid 03/04/2018 None hypothyroid Quality chronic 03/04/2018 None hypothyroid Onset and Resolution ongoing 03/04/2018 None hypothyroid Alleviating Factors medication 03/04/2018 None depression Onset and Resolution ongoing 03/04/2018 None depression Alleviating Factors medication 03/04/2018 None hypertension Quality chronic 03/04/2018 None hypertension Quality primary hypertension 03/04/2018 None hypertension Quality stable 03/04/2018 None hypertension Onset and Resolution ongoing 03/04/2018 None hypertension Onset of Symptom during adulthood 03/04/2018 None hypertension Blood Pressure Values not checking blood pressure at home 03/04/2018 None hypertension Alleviating Factors medication 03/04/2018 None hypertension Pertinent Findings dizziness 03/04/2018 -"always feels off balance" hypertension Pertinent Findings Denies dyspnea 03/04/2018 None hypertension Pertinent Findings edema 03/04/2018 -in the ankles and hands hypertension Pertinent Findings decreased energy 03/04/2018 None depression Pertinent Findings lethargy 03/04/2018 None flank pain Location on the right 02/18/2018 None flank pain Quality acute 02/18/2018 None flank pain Quality constant 02/18/2018 None flank pain Onset of Symptom 2 weeks ago 02/18/2018 None flank pain Onset and Resolution ongoing 02/18/2018 None flank pain Frequency of Episodes increasing 02/18/2018 None flank pain Triggers no known associated factors 02/18/2018 None flank pain Pertinent Findings Denies fever 02/18/2018 None flank pain Pertinent Findings Denies bladder pain 02/18/2018 None hypothyroid Location at the level of [...] data Encounters Encounter Performer Location Codes Date ([id number]) [id number] EST. PATIENT, LEVEL IV Diagnosis: Essential (primary) hypertension[ICD10: I10] Diagnosis: Atrophy of thyroid (acquired)[ICD10: E03.4] Diagnosis: Pain in left foot[ICD10: M79.672] Sandy Casanova MD, [facility] CPT-4: 18576 05/30/2018 [id number] EST. PATIENT, LEVEL II Diagnosis: Allergic urticaria[ICD10: L50.0] Diagnosis: Adverse effect of sulfonamides, initial encounter[ICD10: T37.0X5A] Lynne Casanova MD, [facility] CPT-4: 98664 03/26/2018 ([id number]) 18655 EST. PATIENT, LEVEL III Diagnosis: Laceration without foreign body of left hand, initial encounter[ICD10 : S61.412A] Lynne Casanova MD, [facility] CPT-4: 22303 03/22/2018 ([id number]) 98627 EST. PATIENT, LEVEL IV Diagnosis: Atrophy of thyroid (acquired)[ICD10: E03.4] Diagnosis: Major depressive disorder, recurrent, moderate[ICD10: F33.1] Diagnosis: Essential (primary) hypertension[ICD10: I10] Diagnosis: VACCIN FOR INFLUENZA[ICD10: Z23] Sandy Casanova MD, [facility] CPT-4: 42699 03/04/2018 ([id number]) 89613 EST. PATIENT, LEVEL III Diagnosis: Low back pain[ICD10: M54.5] Diagnosis: Muscle spasm of back[ICD10: M62.830] Sandy Casanova MD, [facility] CPT-4: 64296 02/18/2018 ([id number]) PREV VISIT EST AGE 40-64 Diagnosis: Encounter for general adult medical examination without abnormal findings[ICD10: Z00.00] Sandy Casanova MD, [facility] CPT-4: 18228 11/05/2017 ([id number]) 72522 EST. PATIENT, LEVEL IV Diagnosis: Essential (primary) hypertension[ICD10: I10] Diagnosis: Atrophy of thyroid (acquired)[ICD10: E03.4] Diagnosis: Major depressive disorder, recurrent, moderate[ICD10: F33.1] Diagnosis: Other chronic pain[ICD10: G89.29] Sandy Casanova MD, [facility] CPT-4: 46333 07/13/2017 ([id number]) 15767 EST. PATIENT, LEVEL IV Diagnosis: Essential (primary) hypertension[ICD10: I10] Diagnosis: Major depressive disorder, recurrent, moderate[ICD10: F33.1] Diagnosis: Atrophy of thyroid (acquired)[ICD10: E03.4] Diagnosis: Other chronic pain[ICD10: G89.29] Sandy Casanova MD, [facility] CPT-4: 29286 03/06/2017 [id number] EST. PATIENT, LEVEL IV Diagnosis: Acute bronchitis due to other specified organisms[ICD10: J20.8] Diagnosis: Pain in left hand[ICD10: M79.642] Diagnosis: Bitten or stung by nonvenomous insect and other nonvenomous arthropods, initial encounter[ICD10: W57.XXXA] Luis Casanova MD, [facility] CPT-4: 09180 12/13/2016 ([id number]) 71515 EST. PATIENT, LEVEL IV Diagnosis: Atrophy of thyroid (acquired)[ICD10: E03.4] Diagnosis: Major depressive disorder, recurrent, moderate[ICD10: F33.1] Diagnosis: Essential (primary) hypertension[ICD10: I10] Diagnosis: Encounter for screening mammogram for malignant neoplasm of breast[ ICD10: Z12.31] Sandy Casanova MD, [facility] CPT-4: 04831 11/01/2016 ([id number]) 49596 EST. PATIENT, LEVEL IV Diagnosis: Atrophy of thyroid (acquired)[ICD10: E03.4] Diagnosis: Major depressive disorder, recurrent, moderate[ICD10: F33.1] Diagnosis: Essential (primary) hypertension[ICD10: I10] Sandy Casanova MD, [facility] CPT-4: 01746 07/04/2016 ([id number]) 28095 EST. PATIENT, LEVEL IV Diagnosis: Atrophy of thyroid (acquired)[ICD10: E03.4] Diagnosis: Major depressive disorder, recurrent, moderate[ICD10: F33.1] Diagnosis: Other chronic pain[ICD10: G89.29] Diagnosis: Dysuria[ICD10: R30.0] Sandy Casanova MD, [facility] CPT-4: 59819 03/07/2016 ([phone] 04910 EST. PATIENT, LEVEL IV Diagnosis: Hypothyroidism, unspecified[ICD10: E03.9] Diagnosis: Other chronic pain[ICD10: G89.29] Diagnosis: Major depressive disorder, recurrent, unspecified[ICD10: F33.9] Diagnosis: Iliotibial band syndrome, right leg[ICD10: M76.31] Sandy Casanova MD, [facility] CPT-4: 35372 01/06/2016 ([phone] 81348 EST. PATIENT, LEVEL IV Diagnosis: Hypothyroidism, unspecified[ICD10: E03.9] Diagnosis: Pain in right hip[ICD10: M25.551] Diagnosis: Lateral epicondylitis, right elbow[ICD10: M77.11] Diagnosis: Major depressive disorder, recurrent, unspecified[ICD10: F33.9] Sandy Casanova MD, [facility] CPT-4: 97557 09/07/2015 ([id number]) OFFICE VISIT, NEW - LEVEL 4 Diagnosis: ESOPHAGEAL REFLUX[ICD9: 530.81] Diagnosis: HYPOTHYROIDISM[ICD9: 244.9] Diagnosis: Chronic pain[ICD9: 338.29] Sandy Casanova MD, [facility] CPT- 4: 84956 12/01/2014 Plan of Care Planned Activity Notes Codes Status Date Visit Plan: Hypertension - well controlled - [...] directed otherwise. Check labs at regular intervals q 3 months or q 6 months based on previous levels of control. Pain in left foot with nodule on lateral left foot - the pt is to have biopsy with potential cyst excision tomorrow with Dr. Ragsdale. 05/30/2018 Patient Education: Patient Medication Summary Completed 05/30/2018 Visit Plan: Allergic reaction to bactrim -prednisone taper -zyrtec daily -benadryl every 6 hours -pepcid twice daily -monitor symptoms and call if symptoms do not resolve or if any worse-ER for shortness of breath or other symptoms as discussed Laceration -hand -healing well-continue doxycycline 03/26/2018 Appointment: Lynne Bains WPtel: [phone] [phone] [place] (10 min) Simple 03/26/2018 Patient Education: Patient Medication Summary Completed 03/26/2018 Visit Plan: Laceration of left hand -tetanus is up to date -wound cleansed and steri strips applied- monitor for s/s of infection and start abx if symptoms develop and come in for an appt. Patient verbalized understanding. 03/22/2018 Appointment: Lynne Bains [facility]el: [facility] [phone] [place] (30 min) Complex 03/22/2018 Patient Education: Patient Medication Summary Completed 03/22/2018 Visit Plan: Hypertension - well controlled - [...] on previous levels of control. Depression - continue with current management. Flu shot today 03/04/2018 Appointment: Sandy Casanova WPtel: [facility] [place] [place] (15 min) Moderate 03/04/2018 Patient Education: Patient Medication Summary Completed 03/04/2018 Visit Plan: Back pain, muscle spasm - recommended Flexeril for patient's muscle spasm of back. 02/18/2018 Appointment: Sandy Casanova [facility]: [phone] [facility] [place] [place] (15 min) Moderate 02/18/2018 Patient Education: Patient Medication Summary Completed 02/18/2018 Visit Plan: Well Adult - pt was [...] of over-medication. 11/05/2017 Appointment: Sandy Casanova WPtel: [facility] [place] (15 min) Moderate 11/05/2017 Patient Education: Patient [...] of over-medication. 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 Hypothyroidism - [...] over-medication. 03/06/2017 Appointment: Sandy Casanova WPtel: [phone] [facility] (15 min) Moderate 03/06/2017 Patient Education: Patient [...] or concerns. 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 Sumner. 12/13/2016 Appointment: Luis Montano [facility]Ptel: [phone] (15 min) Moderate 12/13/2016 Patient Education: Patient [...] pain symptoms. 11/01/2016 Appointment: Sandy Casanova [facility]Ptel: [phone] [facility] [place] (15 min) Moderate 11/01/2016 Patient Education: Patient Medication Summary Completed 11/01/2016 Patient Education: Smoking and Tobacco Addiction Completed 11/01/2016 [id number] Pending 11/01/2016 Visit Plan: Hypertension - well [...] her . 07/04/2016 Appointment: Sandy Casanova WPtel: [phone] [facility] (15 min) Moderate 07/04/2016 Patient Education: Patient [...] of over-medication. 03/07/2016 Appointment: Sandy Casanova WPtel: [phone] [facility] (15 min) Moderate 03/07/2016 Patient Education: Patient Medication Summary Completed 03/07/2016 Patient Education: Smoking and Tobacco Addiction Completed 03/07/2016 Appointment: Sandy Casanova WPtel: [phone] [facility] (15 min) Moderate 02/08/2016 Visit Plan: Hypothyroidism [...] recommended counseling. 01/06/2016 Appointment: Sandy Casanova WPtel: [phone] [facility] (15 min) Moderate 01/06/2016 Patient Education: Patient [...] elbow brace - use while at work [employer] home and get TWO OLD [...] over-medication. 12/01/2014 Appointment: Sandy Casanova [facility]Ptel: [phone] [facility] [place] [place] (S) New Patient 12/01/2014 Patient Education: [...] and understands the consequences of over-medication. . Laceration of left hand -tetanus is up to date -wound cleansed and steri strips applied- monitor for s/s of infection and start abx if symptoms develop and come in for an appt. Patient verbalized understanding. . Hypothyroidism - pt with chronic hypothyroidism, [...] or concerns. 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 Sumner. . Back pain, muscle spasm - recommended Flexeril for patient's muscle spasm of back. tennis elbow brace - use while at work [employer] home and get TWO OLD [...] elbow brace - use while at work [employer] home and get TWO OLD [employer] - an ointment that I want you to rub on your elbow and ankle two to 3 times daily. Depression - uncontrolled - recommended pt to seek counseling - also recommended pt needs to break up the cymbalta and take 30mg in the morning and 60mg at bedtime. continue prednisone zyrtec 10mg daily pepcid twice daily benadryl every 6 hours . Allergic reaction to bactrim -prednisone taper -zyrtec daily -benadryl every 6 hours -pepcid twice daily -monitor symptoms and call if symptoms do not resolve or if any worse-ER for shortness of breath or other symptoms as discussed Laceration -hand -healing well-continue doxycycline . Hypertension - well controlled - continue [...] on previous levels of control. Depression - continue with current management. Flu shot today . Hypertension - well controlled - continue [...] difficult relationship at home - recommended counseling. . Hypertension - well controlled - continue [...] directed otherwise. Check labs at regular intervals q 3 months or q 6 months based on previous levels of control. Pain in left foot with nodule on lateral left foot - the pt is to have biopsy with potential cyst excision tomorrow with Dr. Ragsdale. Dr. Willy Cortes Walker - hand specialist in [place]. Hypertension - well controlled - continue with [...] she needs to have discussions with her sample processor about her possible marital issues. Hypothyroidism - [...]
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
[2018-05-31] MEDS ORDERED: ceFAZolin INJECTION 1,000 MG in NS (IVPB) 50 ML IV ONE (12:15)
[2018-05-31] MEDS ORDERED: CATHETER FLUSH 10 ML SYR IV PRN (12:30)
[2018-05-31] MEDS ORDERED: FAMOTIDINE 20MG/2ML IV (PEPCID) IV ONE (12:45)
[2018-05-31] MEDS ORDERED: ONDANSETRON 4 MG/2 ML (SDV) Z0FRAN IV ONE (12:45)
--- NOTE | 2018-05-31 12:48 | Progress Note-Pre Operative ---
Pre-Operative Progress Note H&P Reviewed The H&P was reviewed, patient examined and no changes noted. Date Seen by Provider: May 31, 2018 Time Seen by Provider: 12:47 Date H&P Reviewed: May 31, 2018 Time H&P Reviewed: 12:47 Pre-Operative Diagnosis: Soft tissue mass left foot LIYA MOODY DPM May 31, 2018 12:48
[2018-05-31 12:50] VITALS: BP 120/56
[2018-05-31] MEDS: LACTATED RINGERS 1,000 ML IV PRN ×2 (12:55→14:20)
[2018-05-31] MEDS ORDERED: proPOfol 200 MG/20 ML (DIPRIVAN) VIAL IV ONE (13:47)
[2018-05-31] MEDS ORDERED: MIDAZOLAM 2 MG/2 ML (VERSED) VIAL ONE (13:48)
[2018-05-31] MEDS ORDERED: DEXAMETHASONE 10 MG/ML (DECADRON) 1 ML VIAL ONE (13:48)
[2018-05-31] MEDS ORDERED: LIDOCAINE PF 2% 5 ML (XYLOCAINE) VIAL ONE (13:48)
[2018-05-31] MEDS ORDERED: fentaNYL INJECTION 100 MCG/2 ML AMP ONE (13:48)
[2018-05-31] MEDS ORDERED: ONDANSETRON 4 MG/2 ML (SDV) Z0FRAN ONE (13:48)
[2018-05-31] MEDS ORDERED: ESMOLOL 100 MG/10 ML (BREVIBLOC) VIAL ONE (13:52)
--- NOTE | 2018-05-31 13:56 | Progress Note-Post Operative ---
Post-Operative Progess Note Surgeon (s)/Director Of Early Childhood (s) Surgeon LIYA MOODY DPM Director Of Early Childhood: none Pre-Operative Diagnosis Soft tissue mass left foot Post-Operative Diagnosis same Procedure & Operative Findings Date of Procedure 05/31/18 Procedure Performed/Findings Excision of soft tissue mass left foot Anesthesia Type General Estimated Blood Loss Estimated blood loss (mL): minimal Specimens/Packing Specimens Removed Soft tissue left foot LIYA MOODY DPM May 31, 2018 13:56
[2018-05-31] MEDS ORDERED: LACTATED RINGERS 1,000 ML IV SCH ×2 (13:57)
[2018-05-31] MEDS ORDERED: HYDROcodone/APAP 5 MG/325 MG (LORTAB) TAB PO PRN (14:00)
[2018-05-31] MEDS ORDERED: morphine INJ 4 MG/ML 1 ML (VIAL/SYRINGE) IV PRN (14:00)
[2018-05-31] MEDS ORDERED: BUPIVACAINE 0.5% 30 ML (SENSORCAINE) VIAL ONE (14:09)
[2018-05-31] MEDS ORDERED: LIDOCAINE 1% INJ 20 ML 20 ML VIAL ONE (14:10)
[2018-05-31] MEDS ORDERED: morphine INJ 10 MG/ML 1ML (SYR OR VIAL) IVP ONE (14:15)
[2018-05-31] MEDS ORDERED: ONDANSETRON 4 MG/2 ML (SDV) Z0FRAN IVP PRN (14:15)
--- NOTE | 2018-05-31 14:35 | Anesthesia-General Post-Op ---
General Patient Condition Mental Status/LOC: Same as Preop Cardiovascular: Satisfactory Nausea/Vomiting: Absent Respiratory: Satisfactory Pain: Controlled Complications: Absent Post Op Complications Complications None Follow Up Care/Instructions Patient Instructions None needed. Anesthesia/Patient Condition Patient Condition Patient is doing well, no complaints, stable vital signs, no apparent adverse anesthesia problems. No complications reported per nursing. LAMAR BARRON CRNA May 31, 2018 14:35
[2018-05-31 14:55] VITALS: BP 130/80
--- NOTE | 2018-05-31 15:22 | Physical Therapy Progress Note ---
Therapy Progress Note PT in to assess patient. Patient reports she has established crutches and FWW for use at home NWB left LE. Family present and confirms. Patient declined PT evaluation. RN notified. 1 visit SHARRI FAJARDO PT May 31, 2018 15:22
[2018-05-31 15:25] VITALS: BP 111/79
[2018-05-31] MEDS ORDERED: ACHD5005 PO (15:39)
[2018-05-31 15:55] VITALS: BP 121/62
[2018-05-31 16:00] VITALS: BP 121/62
--- NOTE | 2018-05-31 23:41 | OPERATIVE REPORT ---
DATE OF SERVICE: 05/31/2018 SURGEON: Domonique Moody DPM PREOPERATIVE DIAGNOSIS: Soft tissue mass, left foot. POSTOPERATIVE DIAGNOSIS: Soft tissue mass, left foot. PROCEDURE: Excisional biopsy left fifth metatarsal base soft tissue lesion deep. WOUND CLASS: Clean. ANESTHESIA: General. HEMOSTASIS: Pneumatic thigh tourniquet at 250 mmHg. INDICATIONS: This 57-year-old female presents complaining of a growing mass to the plantar aspect of the left foot. The lesion is getting progressively more uncomfortable for the patient. She is agreeable to biopsy of the lesion after risks and complications were discussed at length. No guarantees were extended to the patient and she is willing to proceed. DESCRIPTION OF PROCEDURE: The patient was brought back to the OP table, placed in secure supine position. General anesthetic was then induced. Appropriate timeout was performed. The left foot was then anesthetized with 6 mL of 0.5% Marcaine injected in a local infused to the surgical site. The left foot was then prepped and draped in normal sterile manner. The left foot was then elevated and allowed to exsanguinate, after which the thigh tourniquet was inflated to 250 mmHg. Attention was then directed to the lateral aspect of the left 5th metatarsal base area where a 2.5 cm longitudinal linear incision was created. The incision was deepened in the same plane with great care to identify and retract all vital neurovascular structures. The soft tissue was then bluntly dissected down to a white glistening mass that was lobulated and fairly well encapsulated to the lateral and plantar and aspect of the left fifth metatarsal base area. Since it was fairly well encapsulated, an attempt at excisional biopsy was performed with blunt dissection. The lesion was sent for gross and microscopic evaluation. However, a small portion was sent for cultures and sensitivity, bacterial and fungal. No other abnormalities were identified in the area. The remainder of the plantar aspect of the fifth metatarsal was regular adipose tissue, regular texture and color. The tourniquet was then deflated and active bleeders were then cauterized. The wound was flushed with copious amounts of normal saline, after which closure was then performed in layers. Deep closure was performed with 4-0 Vicryl, superficial closure with 4-0 Vicryl and skin closure with 4-0 Prolene in a simple interrupted type stitch. Postoperative injection consisted of additional 6 mL of 0.5% Marcaine followed by Betadine soaked Adaptic to the incision site, sterile 4 x 4, sterile Kerlix all secured with a Coban wrap. The patient tolerated the anesthesia and procedure well, was transported from the operating room to the recovery area with vital signs stable and vascular status intact to all digits of the left foot. She is to be nonweightbearing left foot. She is to follow up in my office in 10 days' period of time or sooner if necessary. Job ID: [id number] DocumentID: [id number] Dictated Date: 05/31/2018 14:08:31 Ceramics Engineer Date: 05/31/2018 23:40:23 Dictated By: DOMONIQUE MOODY DPM
== END 2018-05-31 16:00 | disposition home or self-care (01) ==
LOC: SDC 11:59
PROVIDERS: ATTEND Podiatrist Foot & Ankle Surgery
DX: R22.42 Localized swelling, mass and lump, left lower limb (principal); I10 Essential (primary) hypertension; E03.9 Hypothyroidism, unspecified; K21.9 Gastro-esophageal reflux disease without esophagitis; F17.210 Nicotine dependence, cigarettes, uncomplicated; Z79.899 Other long term (current) drug therapy
CPT/HCPCS: 87070; 87075; 87081; 87101; 87205

== ENCOUNTER 2018-06-04 06:55 | Day surgery (SDC) | payer OTHER ==
--- OUTSIDE RECORDS SUMMARY | 2018-05-31 12:34 | XMS REPORT | Clinical Summary ---
Author Author [facility] Organization [facility] Address Unknown Phone Unavailable Care Team Providers Care Pattern Fitter Name Role Phone Sandy Casanova MD PCP Source Comments Some departments are not documenting in the electronic medical record. 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 For more information, please contact: [facility] [address] [place] [address]
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
[~2018-06-04] VITALS: Ht 162.6 cm; Wt 61.0 kg
[~2018-06-04 06:55] MED LIST changes: +ACHD5005 PO; +BUPIVACAINE 0.5% 30 ML (SENSORCAINE) VIAL ONE; +DEXAMETHASONE 10 MG/ML (DECADRON) 1 ML VIAL ONE; +LIDOCAINE 1% INJ 20 ML 20 ML VIAL ONE; +LIDOCAINE PF 2% 5 ML (XYLOCAINE) VIAL ONE; +MIDAZOLAM 2 MG/2 ML (VERSED) VIAL ONE; +NS (IVPB) 0 ML ONE; +ONDANSETRON 4 MG/2 ML (SDV) Z0FRAN ONE; +SEVOFLURANE (ULTANE) 15 ML INHAL SOLN ONE; +ceFAZolin 1,000 MG/10 ML (ANCEF) VIAL ONE; +fentaNYL INJECTION 100 MCG/2 ML AMP ONE; +proPOfol 200 MG/20 ML (DIPRIVAN) VIAL IV ONE
[2018-06-04 07:10] VITALS: BP 108/71
--- NOTE | 2018-06-04 07:18 | Progress Note-Pre Operative ---
Pre-Operative Progress Note H&P Reviewed The H&P was reviewed, patient examined and no changes noted. Date Seen by Provider: Jun 04, 2018 Time Seen by Provider: 07:17 Date H&P Reviewed: Jun 04, 2018 Time H&P Reviewed: 07:17 Pre-Operative Diagnosis: MIXED INCONTINENCE, ISD, OAB JESUS JANE MD Jun 04, 2018 07:18
[2018-06-04] MEDS ORDERED: LACTATED RINGERS 1,000 ML IV PRN (07:31)
[2018-06-04] MEDS ORDERED: LIDOCAINE/EPI 1%-1:100,000 (XYLOCAINE) 20ML ONE (07:32)
[2018-06-04] MEDS ORDERED: ESTRADIOL VAGINAL CREAM 42.5 GM (ESTRACE) VG ONE (07:32)
--- OUTSIDE RECORDS SUMMARY | 2018-06-04 07:38 | XMS REPORT | Clinical Summary ---
Author Author [facility] Organization [facility] Address Unknown Phone Unavailable Care Team Providers Care Veneer Joiner Name Role Phone Sandy Casanova MD PCP Source Comments Some departments are not documenting in the electronic medical record. 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 For more information, please contact: [facility] [address] [place] [address]
[2018-06-04] MEDS ORDERED: cefTRIAXone FOR IV USE 1,000 MG in NS (IVPB) 50 ML IV ONE (07:45)
[2018-06-04] MEDS ORDERED: FAMOTIDINE 20MG/2ML IV (PEPCID) IV ONE (07:45)
[2018-06-04] MEDS ORDERED: meTOprolol 5 MG/5 ML (LOPRESSOR) VIAL IV ONE (07:45)
[2018-06-04] MEDS ORDERED: ONDANSETRON 4 MG/2 ML (SDV) Z0FRAN IV ONE (07:45)
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
[2018-06-04] MEDS ORDERED: cefTRIAXone 1 GM/10 ML for IV (ROCEPHIN) ONE (07:48)
[2018-06-04] MEDS ORDERED: NS (IVPB) 50 ML ONE (07:48)
[2018-06-04] MEDS ORDERED: ONDANSETRON 4 MG/2 ML (SDV) Z0FRAN ONE ×2 (07:49→07:55)
[2018-06-04] MEDS ORDERED: FAMOTIDINE 20MG/2ML IV (PEPCID) ONE (07:49)
[2018-06-04] MEDS: LACTATED RINGERS 1,000 ML IV PRN ×2 (07:49→09:51)
[2018-06-04] MEDS ORDERED: meTOprolol 5 MG/5 ML (LOPRESSOR) VIAL ONE (07:49)
[2018-06-04] MEDS ORDERED: SEVOFLURANE (ULTANE) 15 ML INHAL SOLN ONE (07:55)
[2018-06-04] MEDS ORDERED: ROCURONIUM 10 MG/ML 5 ML SYRINGE IV ONE (07:55)
[2018-06-04] MEDS ORDERED: MIDAZOLAM 2 MG/2 ML (VERSED) VIAL ONE ×2 (07:55→08:58)
[2018-06-04] MEDS ORDERED: DEXAMETHASONE 10 MG/ML (DECADRON) 1 ML VIAL ONE (07:55)
[2018-06-04] MEDS ORDERED: proPOfol 200 MG/20 ML (DIPRIVAN) VIAL IV ONE (07:55)
[2018-06-04] MEDS ORDERED: SUCCINYLCHOLINE INJ 100 MG/5 ML SYR ONE ×2 (07:55→08:42)
[2018-06-04] MEDS ORDERED: fentaNYL INJECTION 100 MCG/2 ML AMP ONE (07:55)
[2018-06-04] MEDS ORDERED: LIDOCAINE PF 2% 5 ML (XYLOCAINE) VIAL ONE (08:41)
[2018-06-04] MEDS ORDERED: LACTATED RINGERS 1,000 ML IV SCH (08:52)
--- NOTE | 2018-06-04 08:52 | Progress Note-Post Operative ---
Post-Operative Progess Note Surgeon (s)/Primary Clinician (s) Surgeon JESUS JANE MD Primary Clinician: NONE Pre-Operative Diagnosis MIXED INCONTINENCE, ISD, OAB, AND CYSTOCELE Post-Operative Diagnosis SAME Procedure & Operative Findings Date of Procedure 06/04/18 Procedure Performed/Findings ANTERIOR REPAIR, PVS AND CYSTOSCOPY Anesthesia Type GENERAL Estimated Blood Loss Estimated blood loss (mL): LESS THAN 50CC Specimens/Packing Specimens Removed NONE Packing: ESTRACE VAGINAL PACK JESUS JANE MD Jun 04, 2018 08:52
[2018-06-04] MEDS ORDERED: NEOSTIGMINE 1 MG/ML 5 ML SYRINGE ONE (09:36)
[2018-06-04] MEDS ORDERED: GLYCOPYRROLATE 0.2 MG/ML (ROBINUL) 2 ML VIAL ONE (09:36)
[2018-06-04] MEDS ORDERED: ONDANSETRON 4 MG/2 ML (SDV) Z0FRAN IVP PRN (10:00)
[2018-06-04] MEDS ORDERED: morphine INJ 10 MG/ML 1ML (SYR OR VIAL) IVP ONE (10:00)
[2018-06-04] MEDS ORDERED: HYDROmorphone 2 MG/ML VIAL (DILAUDID) IV ONE (10:00)
[2018-06-04] MEDS ORDERED: MEPERIDINE (DEMEROL) INJ 50 MG/ML IVP ONE (10:00)
[2018-06-04] MEDS ORDERED: PROMETHAZINE INJ 25 MG/ML (PHENERGAN) AMP IVP ONE (10:00)
[2018-06-04 10:55] VITALS: BP 113/55
--- NOTE | 2018-06-04 11:47 | OPERATIVE REPORT ---
DATE OF SERVICE: 06/04/2018 PREOPERATIVE DIAGNOSES: Mixed incontinence with intrinsic sphincter deficiency and overactive bladder. POSTOPERATIVE DIAGNOSES: Mixed incontinence with intrinsic sphincter deficiency and overactive bladder, cystocele. OPERATION PERFORMED: Anterior repair and pubovaginal sling with cystoscopy. SURGEON: JESUS JANE MD ANESTHESIA: General. COMPLICATIONS: None. DESCRIPTION OF PROCEDURE: Under satisfactory general anesthesia, the patient in extended lithotomy position, genitalia were prepped and draped in usual sterile fashion with a separate vaginal prep. Donohue catheter inserted and the bladder was drained. Anterior vaginal wall was infiltrated with 2% lidocaine with epinephrine to facilitate hydrodissection. A midline incision was made in the anterior vaginal wall and the mucosa was from the underlying fascia with sharp dissection. Bleeders were cauterized. Finger dissection was carried on both sides towards the pubic bone. The fascia was approximated with interrupted 2-0 Vicryl giving excellent support to the bladder. Then, I passed the Solyx pubovaginal sling on both sides using the described technique. The sling was sitting nicely under the midurethra was no tension or twist, passage of a hemostat easily between it and then the underlying urethra. I removed the Donohue catheter to perform cystoscopy to confirm the integrity of the bladder, ureteral orifices and urethra. No foreign body and fill up the bladder half full to perform a manual Valsalva maneuver after removing the cystoscope and it was negative. I reinserted the Donohue catheter draining clear fluid. At all times, the urine was clear. I excised the excess vaginal mucosa reapproximated to the vaginal mucosa, which running repeat 2-0 Vicryl. Needle, sponge, instrument counts were correct x2. Estimated blood loss negligible, none of which was replaced. Estrace vaginal pack was inserted. The patient tolerated the procedure and anesthesia well and was sent to recovery room in stable condition. Job ID: [id number] DocumentID: [id number] Dictated Date: 06/04/2018 09:49:33 Senior Environmental Engineer Date: 06/04/2018 11:46:25 Dictated By: JESUS JANE MD
[2018-06-04] MEDS ORDERED: HYDROcodone/APAP 5 MG/325 MG (LORTAB) TAB PO PRN (16:00)
[2018-06-04] MEDS: KETOROLAC 30 MG/ML VIAL IV PRN (16:05)
[2018-06-04 19:50] VITALS: BP 108/68
[2018-06-04] MEDS: GABAPENTIN 400 MG (NEURONTIN) CAP PO SCH (20:02)
[2018-06-04] MEDS ORDERED: CARVEDILOL 6.25 MG (COREG) TAB PO SCH (21:00)
[2018-06-05 00:05] VITALS: BP 134/65
[2018-06-05] MEDS: KETOROLAC 30 MG/ML VIAL IV PRN (01:46)
[2018-06-05 04:50] VITALS: BP 137/70
[2018-06-05 07:40] VITALS: BP 124/60
[2018-06-05] MEDS: GABAPENTIN 400 MG (NEURONTIN) CAP PO SCH (08:19)
[2018-06-05] MEDS ORDERED: LEVOFLOXACIN 250 MG/50 ML IVPB 50 ML IV SCH (08:52)
[2018-06-05] MEDS ORDERED: ACYCLOVIR 400 MG TABLET (ZOVIRAX) PO SCH (09:00)
[2018-06-05] MEDS ORDERED: ESTRADIOL 1 MG TAB (ESTRACE) PO SCH (09:00)
[2018-06-05] MEDS ORDERED: MELOXICAM 7.5 MG (MOBIC) TABLET PO SCH (09:00)
[2018-06-05] MEDS ORDERED: LEVOTHYROXINE 75 MCG (LEVOTHROID) TABLET PO SCH (09:00)
[2018-06-05] MEDS ORDERED: FLUoxetine HCL 20 MG (PROzac) CAP PO SCH (09:00)
--- NOTE | 2018-06-05 09:47 | Physical Therapy Progress Note ---
Therapy Progress Note Nursing called with request for PT to assist in providing a knee scooter for patient to mobilize on the floor. When PT arrived, pt was up in the bathroom with a FWW with the nurse present. Provided pt with knee scooter. She wheeled about the unit, maintaining NWB left. Pt safe with mobilty and transfers. Visit only. [phone] YUMIKO WOMACK PT Jun 05, 2018 09:47
--- NOTE | 2018-06-05 10:11 | Progress Note-Urology ---
Progress Note-Urology Progress Notes/Assess & Plan Progress/Assessment & Plan VOIDED WELL. [place]OUNT. DRY. PVR 40CC. HAPPY. HOME WITH INSTRUCTIONS Final Diagnosis INCONTINENCE JESUS JANE MD Jun 05, 2018 10:10
--- NOTE | 2018-06-05 10:13 | Discharge Inst-Urology ---
Discharge Inst-Urology Discharge Medications New, Converted, or Re-newed RX: RX on Chart Patient Instructions/Follow Up Plan Please make appointment to been seen in office end of next week, REST till then Keep bowels soft and moving. Hold oxybutin Showers, no bath Increase oral fluids for 48 hours and then as needed. Diet as tolerated. If questions or concerns contact your physician Or seek help at emergency department. JESUS JANE MD Jun 05, 2018 10:13
[2018-06-05] MEDS ORDERED: CHOLESTYRAMINE 4 GM (QUESTRAN LITE, PREVALITE) PKT PO SCH (12:00)
--- NOTE | 2018-06-05 14:09 | Anesthesia-General Post-Op ---
General Patient Condition Mental Status/LOC: Same as Preop Cardiovascular: Satisfactory Nausea/Vomiting: Absent Respiratory: Satisfactory Pain: Controlled Complications: Absent Post Op Complications Complications None Follow Up Care/Instructions Patient Instructions None needed. Anesthesia/Patient Condition Patient Condition Patient is already discharged to home. No complications noted per nursing staff. SAVANNA DIAL DO Jun 05, 2018 14:09
[2018-06-10] MEDS ORDERED: fluCOnazole (DIFLUCAN) 100 MG TAB PO SCH (09:00)
== END 2018-06-05 11:20 | disposition home or self-care (01) ==
LOC: SDC 06:55 → EDSTATUS 09:30 → WS 10:55 → SDC 06-05 11:20
PROVIDERS: ATTEND Urology
DX: N39.46 Mixed incontinence (principal); N32.81 Overactive bladder; N36.42 Intrinsic sphincter deficiency (ISD); N81.10 Cystocele, unspecified; I10 Essential (primary) hypertension; F17.210 Nicotine dependence, cigarettes, uncomplicated; Z79.899 Other long term (current) drug therapy
CPT/HCPCS: 87081; 94664

== ENCOUNTER → 2018-07-26 | Outpatient (CLI) | payer OTHER ==
[~2018-07-26] MED LIST changes: -BUPIVACAINE 0.5% 30 ML (SENSORCAINE) VIAL ONE; -DEXAMETHASONE 10 MG/ML (DECADRON) 1 ML VIAL ONE; +GABA800T10 PO; -GABA800T2 PO; -LIDOCAINE 1% INJ 20 ML 20 ML VIAL ONE; -LIDOCAINE PF 2% 5 ML (XYLOCAINE) VIAL ONE; -MIDAZOLAM 2 MG/2 ML (VERSED) VIAL ONE; -NS (IVPB) 0 ML ONE; -ONDANSETRON 4 MG/2 ML (SDV) Z0FRAN ONE; -SEVOFLURANE (ULTANE) 15 ML INHAL SOLN ONE; -ceFAZolin 1,000 MG/10 ML (ANCEF) VIAL ONE; -fentaNYL INJECTION 100 MCG/2 ML AMP ONE; -proPOfol 200 MG/20 ML (DIPRIVAN) VIAL IV ONE
--- NOTE | 2018-07-26 15:40 | Diagnostic Imaging Report ---
INDICATION: Screening. COMPARISON: Prior examination from 07/25/2017 back through 12/25/2011. EXAMINATION: Bilateral digital screening mammogram with CAD. 3D tomographic images were obtained and reviewed. The current study was also evaluated with a Computer Aided Detection (CAD) system. FINDINGS: There are scattered fibroglandular densities, bilaterally. There are a few benign type calcifications. There is no dominant mass, spiculated lesion or suspicious calcification identified. Skin, nipples and axilla are unremarkable. IMPRESSION: Category 2, benign. ACR BI-RADS Category 2: Benign findings. Result letter will be mailed to the patient. Note: At least 10% of breast cancer is not imaged by mammography. Dictated on workstation # [id number]
== END ==
LOC: RAD 09:02
PROVIDERS: ATTEND Family Medicine
DX: Z12.31 Encounter for screening mammogram for malignant neoplasm of breast (principal); R92.8 Other abnormal and inconclusive findings on diagnostic imaging of breast
CPT/HCPCS: 77067

== ENCOUNTER → 2018-09-20 | Outpatient (CLI) | payer OTHER ==
[2018-09-20 14:12] LABS: HEMOGLOBIN 14.4 G/DL (11.5-16.0); MEAN PLATELET VOLUME 9.8 FL (7.4-10.4); RED CELL DISTRIBUTION WIDTH 13.8 % (10.0-14.5); WHITE BLOOD COUNT 8.5 10^3/uL (4.3-11.0)
[2018-09-20 14:29] LABS: ALANINE AMINOTRANSFERASE 20 U/L (0-55); ALBUMIN 4.3 GM/DL (3.2-4.5); ALKALINE PHOSPHATASE 65 U/L (40-136); BILIRUBIN,TOTAL 0.5 MG/DL (0.1-1.0); BUN/CREATININE RATIO 26; CALCIUM 9.7 MG/DL (8.5-10.1); CARBON DIOXIDE 21 MMOL/L (21-32); CHLORIDE 107 MMOL/L (98-107); CREATININE SERUM 0.76 MG/DL (0.60-1.30); GFR ESTIMATED > 60; GLUCOSE 93 MG/DL (70-105); POTASSIUM 3.9 MMOL/L (3.6-5.0); SODIUM 140 MMOL/L (135-145); TOTAL PROTEIN 6.7 GM/DL (6.4-8.2)
--- NOTE | 2018-09-20 14:29 | Diagnostic Imaging Report ---
INDICATION: Right-sided low back pain for two to three days. TIME OF EXAM: 02:18 p.m. There are surgical clips in the gallbladder fossa. No free air is identified. The bowel gas pattern appears nonobstructing. There are postop changes in the pelvis. No pathologic calcifications are seen. IMPRESSION: No acute abnormality is detected. Dictated by: Dictated on workstation # [id number]
== END ==
LOC: RAD 13:58
PROVIDERS: ATTEND Nurse Practitioner Family
DX: M54.5 Low back pain (principal); R30.0 Dysuria; Z98.890 Other specified postprocedural states
CPT/HCPCS: 36415; 74019; 80053; 85027

== ENCOUNTER → 2018-10-21 | Outpatient (CLI) | payer OTHER ==
--- NOTE | 2018-10-21 13:56 | Diagnostic Imaging Report ---
INDICATION: Wrist pain after fall. 3 views were obtained Findings: There is an ulnar negative posture. There is no fracture or dislocation. Soft tissues are unremarkable. Alignment is otherwise normal. IMPRESSION: No acute radiograph abnormality. Incidental note is made of ulnar negative posture. Dictated by: Dictated on workstation # [id number]
== END ==
LOC: RAD 13:05
PROVIDERS: ATTEND Nurse Practitioner Family
DX: M25.531 Pain in right wrist (principal); W19.XXXA Unspecified fall, initial encounter
CPT/HCPCS: 73110

== ENCOUNTER → 2020-05-25 | Outpatient (CLI) | payer BC ==
[~2020-05-25] MED LIST changes: -CLIN300C11 PO; +CLIN300C12 PO; +OXYB15TA19 PO
--- NOTE | 2020-05-25 17:11 | Diagnostic Imaging Report ---
EXAMINATION: Abdomen 1 view HISTORY: Kidney stone. COMPARISON: 09/20/2018. FINDINGS: Right upper quadrant surgical clips are seen. Suture lines are present in the pelvis. There are no calcifications in the region of the kidneys, ureters or bladder. There is a large amount of stool in the colon. No dilated bowel. IMPRESSION: 1. No calcifications are seen in the expected location of the kidneys, ureters or bladder. Dictated by: Dictated on workstation # [id number]
== END ==
LOC: RAD 16:07
PROVIDERS: ATTEND Family Medicine
DX: N20.0 Calculus of kidney (principal)
CPT/HCPCS: 74018

== ENCOUNTER → 2020-05-27 | Outpatient (CLI) | payer BC ==
--- NOTE | 2020-05-27 17:12 | Diagnostic Imaging Report ---
EXAMINATION: CT Abdomen Pelvis without contrast. TECHNIQUE: Multiple contiguous axial images were obtained through the abdomen and pelvis without the use of intravenous contrast. All CT scans use one or more of the following dose optimizing techniques: automated exposure control, MA and/or KvP adjustment based on a patient size and exam type, or iterative reconstruction. HISTORY: Right flank pain and dysuria COMPARISON: CT abdomen/pelvis 03/12/2012. FINDINGS: Lung bases: The lung bases are clear. Solid organs: The liver is normal. The gallbladder is surgically absent. There is no biliary ductal dilation. Pancreas is normal. Spleen is normal. Adrenal glands are normal. Increased size of a left renal cyst measuring 2.7 cm. The kidneys are otherwise unremarkable without visualized calculus or hydronephrosis. Bowel: The stomach and small bowel are normal without obstruction. The colon and appendix are normal. Peritoneum: There is no intraperitoneal free fluid or free air. No suspicious lymphadenopathy. Vasculature: Calcification of the aorta without aneurysm. Musculoskeletal: Degenerative changes of the spine without suspicious osseous lesion or compression fracture. Pelvis: The uterus is surgically absent. No adnexal mass. The urinary bladder is normal. IMPRESSION: 1. No acute abnormality in the abdomen or pelvis. 2. No visualized renal calculus or hydronephrosis. Dictated by: Dictated on workstation # [id number]
== END ==
LOC: RAD 16:38
PROVIDERS: ATTEND Family Medicine
DX: R30.0 Dysuria (principal); R31.9 Hematuria, unspecified; R10.9 Unspecified abdominal pain; Z87.442 Personal history of urinary calculi
CPT/HCPCS: 74176

== ENCOUNTER → 2021-03-30 | Outpatient (CLI) | payer BC ==
[~2021-03-30] MED LIST changes: -ACYC400T PO; +ACYC400T21 PO
--- NOTE | 2021-03-30 11:45 | Diagnostic Imaging Report ---
EXAMINATION: Lumbosacral spine 2 or 3 views. HISTORY: RT HIP AND LOW BACK PAIN COUGH. COMPARISON: Correlation made to a lumbar spine MRI from 04/05/2011. FINDINGS: There is normal height and alignment of the vertebral bodies. No fractures appreciated. Intervertebral disc space narrowing and anterior spurring noted at L2-L3 and L1-L2. There is facet hypertrophy at L4-L5 and L5-S1. Atherosclerotic disease is noted. There are clips in the right upper quadrant. IMPRESSION: 1. Degenerative findings with no acute osseous abnormality. Dictated by: Dictated on workstation # [id number]
--- NOTE | 2021-03-30 13:01 | Diagnostic Imaging Report ---
INDICATION: Wheezing COMPARISON: None. FINDINGS: Frontal and lateral views the chest demonstrate clear lungs bilaterally. The heart size is normal. There is no pneumothorax. Osseous structures are normal. IMPRESSION: No acute findings. Normal chest. Dictated by: Dictated on workstation # [id number]
--- NOTE | 2021-03-30 14:03 | Diagnostic Imaging Report ---
INDICATION: Severe low back pain and right hip pain. TIME OF EXAM: 11:15 a.m. FINDINGS: Two views of the right hip show normal femoroacetabular alignment. Joint space is well maintained. The femoral head and neck are intact. No fractures are seen. Right-sided rami are intact. IMPRESSION: No acute bony abnormality is detected. Dictated by: Dictated on workstation # [id number]
== END ==
LOC: RAD 10:14
PROVIDERS: ATTEND Nurse Practitioner Family
DX: M47.817 Spondylosis without myelopathy or radiculopathy, lumbosacral region (principal); R06.2 Wheezing; R05.9 Cough, unspecified
CPT/HCPCS: 71046; 72100; 73502

== ENCOUNTER → 2021-04-17 | Outpatient (CLI) | payer BC ==
--- NOTE | 2021-04-17 15:57 | Diagnostic Imaging Report ---
EXAM: Right knee radiograph. EXAM DATE: 04/17/2021. COMPARISON: None. HISTORY: Right knee pain after fall. TECHNIQUE: 3 views the right knee. FINDINGS: There is no acute fracture, dislocation or destructive osseous process. Joint spaces are normal. Soft tissues are normal. IMPRESSION: No acute osseous abnormality of the right knee. Dictated by: Dictated on workstation # [id number]
== END ==
LOC: RAD 15:02
PROVIDERS: ATTEND Family Medicine
DX: M25.561 Pain in right knee (principal); W19.XXXA Unspecified fall, initial encounter
CPT/HCPCS: 73562

== ENCOUNTER → 2021-04-17 | Outpatient (CLI) | payer BC ==
--- NOTE | 2021-04-17 15:56 | Diagnostic Imaging Report ---
EXAM: Right hip radiograph. EXAM DATE: 04/17/2021. COMPARISON: 03/30/2021. HISTORY: Right hip pain. TECHNIQUE: 2 views of right hip. FINDINGS: There is no acute fracture, dislocation or destructive osseous process. Joint spaces are normal. The soft tissues are normal. IMPRESSION: No acute osseous abnormality of the right hip. Dictated by: Dictated on workstation # [id number]
== END ==
LOC: RAD 14:58
PROVIDERS: ATTEND Nurse Practitioner Family
DX: M25.551 Pain in right hip (principal)
CPT/HCPCS: 73502

== ENCOUNTER → 2021-04-21 | Outpatient (CLI) | payer BC ==
[~2021-04-21] VITALS: Ht 162.6 cm; Wt 49.6 kg
[~2021-04-21] MED LIST changes: +CLIN-144 PO; -CLIN300C12 PO
== END | disposition home or self-care (01) ==
LOC: PREOP 10:49
PROVIDERS: ATTEND Surgery
DX: Z01.818 Encounter for other preprocedural examination (principal)

== ENCOUNTER 2021-04-22 11:06 | Day surgery (SDC) | payer BC ==
[2021-04-22] VITALS (11 sets, daily range): BP systolic 122–152; BP diastolic 55–80
[~2021-04-22] VITALS: Ht 162.6 cm; Wt 49.6 kg
[2021-04-22] MEDS ORDERED: NS IV 500 ML 500 ML ONE (11:21)
[2021-04-22] MEDS ORDERED: fentaNYL INJ 100 MCG/2 ML AMP IVP ONE (11:30)
[2021-04-22] MEDS ORDERED: LIDOCAINE JELLY 2% 6 ML SYRINGE MM PRN (11:30)
[2021-04-22] MEDS ORDERED: NS IV 500 ML 500 ML IV PRN (11:30)
[2021-04-22] MEDS ORDERED: MIDAZOLAM 5 MG/5 ML (VERSED) VIAL IV ONE (11:30)
[2021-04-22] MEDS ORDERED: HURRICAINE EXT TUBE (BENZOCAINE) XX PRN (11:30)
[2021-04-22] MEDS ORDERED: ONDANSETRON 4 MG/2 ML (SDV) Z0FRAN IVP PRN (13:15)
[2021-04-22] MEDS ORDERED: ONDANSETRON 4 MG (ZOFRAN) ORAL DISSOLVE TAB PO PRN (13:15)
--- NOTE | 2021-04-22 13:15 | Progress Note-Pre Operative ---
Pre-Operative Progress Note H&P Reviewed The H&P was reviewed, patient examined and no changes noted. Date Seen by Provider: Apr 22, 2021 Time Seen by Provider: 13:00 Date H&P Reviewed: Apr 22, 2021 Time H&P Reviewed: 13:00 Pre-Operative Diagnosis: dysphagia, achalasia GARCÍA BROWN MD Apr 22, 2021 13:15
--- NOTE | 2021-04-22 13:17 | Discharge Inst-Surgical ---
D/C Lap Instructions-STEPHANIE Follow Up Activity as tolerated High Fiber Diet 25g or more per day Avoid Alcohol, Caffeine, Spicy [place] and Acid foods. Drink 64 fluid oz or more of fluids per day. Symptoms to Report: Fever over 101 degree F, Nausea/Vomiting If any problems/questions: Contact your physician or go to Emergency Room GARCÍA BROWN MD Apr 22, 2021 13:17
[2021-04-22] MEDS ORDERED: MIDAZOLAM 5 MG/5 ML (VERSED) VIAL ONE (13:41)
[2021-04-22] MEDS ORDERED: fentaNYL INJ 100 MCG/2 ML AMP ONE (13:42)
--- NOTE | 2021-04-22 14:21 | Progress Note-Post Operative ---
Post-Operative Progess Note Surgeon (s)/Blood Bank Coordinator (s) Surgeon GARCÍA BROWN MD Blood Bank Coordinator: none Pre-Operative Diagnosis dysphagia, achalasia Post-Operative Diagnosis reflux esophagitis(stage 2), mild dist esoph stricture, intact HH repair, severe diffuse gastritis. Procedure & Operative Findings Date of Procedure 04/22/21 Procedure Performed/Findings EGD with bx and balloon dilatation. Anesthesia Type cs Estimated Blood Loss Estimated blood loss (mL): minimal Specimens/Packing Specimens Removed ge jxn, antrum GARCÍA BROWN MD Apr 22, 2021 14:21
--- NOTE | 2021-04-22 19:34 | OPERATIVE REPORT ---
DATE OF SERVICE: 04/22/2021 ATTENDING PRIMARY CARE PHYSICIAN: Sandy Casanova MD PREOPERATIVE DIAGNOSIS: Dysphagia with history of achalasia. POSTOPERATIVE DIAGNOSES: Reflux esophagitis stage II, mild distal esophageal stricture, intact previous hiatal hernia repair, severe gastritis. No distal obstructions. PROCEDURE: EGD with biopsy and balloon dilatation. SURGEON: García Brown MD ANESTHESIA: Conscious sedation. ESTIMATED BLOOD LOSS: Minimal. FINDINGS: Same as postoperative diagnosis. DISPOSITION: The patient tolerated the procedure well. INDICATIONS: The patient is a 60-year-old female known to us. She has had issues with dysphagia for many years. She states that she was diagnosed with achalasia around 15 years ago. She underwent multiple EGDs as well as balloon dilatations initially frequently; however, over time, this did improve. She also reports receiving Botox injection approximately 5 to 7 years ago, which also did help her a significant amount of time. She also does have a history of gastroesophageal reflux disease and status post hiatal hernia repair as well as a Torin fundoplication in 1999. She has had recurrent dysphagia, especially for breads and pastas. She has also been under a significant amount of stress lately and has lost some weight. DESCRIPTION OF PROCEDURE: The patient was brought to the endoscopy suite, laid in the left lateral decubitus position. After adequate IV pain and sedative medications and conscious sedation anesthesia, the mouthpiece was applied. The endoscope was placed in the mouth, visualizing the pharynx and hypopharyngeal region. Vocal cords, epiglottis and vallecula identified and appeared to be normal. The endoscope was then gently intubated into esophageal opening and esophagus insufflated. The endoscope was then advanced to the first, second and third portion of esophagus at the level of the GE junction, a reflux esophagitis stage II identified. There was a mild distal esophageal stricture also identified. A biopsy was taken with forceps with visualization of good hemostasis. The endoscope was then advanced in the stomach and endoscope retroflexed visualizing an intact previous hiatal hernia repair. There was a severe gastritis, which was diffuse throughout the stomach. No formal ulcerations, polyps, or any neoplasms. A biopsy was taken of the antrum to rule out H. pylori with visualization of good hemostasis. The endoscope was then advanced to the pylorus and the first and second portion of the duodenum, which appeared normal with no distal obstructions. The balloon was then placed in the stomach and pulled back to the area of stricture. We then proceeded integrated stepwise fashion from 2, 4, then 6 atmospheres of pressure or 20 mm in luminal diameter and left this in place for approximately 60 seconds. The balloon was then desufflated and removed with visualization of good hemostasis as well as no mucosal tears. The endoscope was then slowly withdrawn while taking a second look and suctioning of residual air with no additional findings. The patient tolerated the procedure well. We will recommend the necessary lifestyle and dietary changes for her gastritis as well as the achalasia and distal esophageal stricture, which encompasses smoking cessation as well as avoidance of caffeinated beverages, spicy, greasy and acidic foods as well as taking small and more frequent meals and avoidance of eating at night. She is currently on Protonix 40 mg daily; however, this does not seem to be effective enough and we will also add omeprazole 40 mg daily to be taken at a separate time during the day. If she does have recurrent dysphagia, we will have her follow up for repeat dilatation. Job ID: [id number] DocumentID: [id number] Dictated Date: 04/22/2021 14:12:56 [employer] Date: 04/22/2021 19:32:48 Dictated By: GARCÍA BROWN MD
== END 2021-04-22 14:55 | disposition home or self-care (01) ==
LOC: ENDO 11:06
PROVIDERS: ATTEND Surgery
DX: K21.00 Gastro-esophageal reflux disease with esophagitis, without bleeding (principal); K22.2 Esophageal obstruction; K29.70 Gastritis, unspecified, without bleeding; K22.0 Achalasia of cardia; E78.5 Hyperlipidemia, unspecified; G62.9 Polyneuropathy, unspecified; E03.9 Hypothyroidism, unspecified; F32.A Depression, unspecified; M19.90 Unspecified osteoarthritis, unspecified site; K91.1 Postgastric surgery syndromes; K31.84 Gastroparesis; B00.9 Herpesviral infection, unspecified; F17.210 Nicotine dependence, cigarettes, uncomplicated; Z88.0 Allergy status to penicillin; Z79.899 Other long term (current) drug therapy; Z79.890 Hormone replacement therapy; Z88.2 Allergy status to sulfonamides; Z20.822 Contact with and (suspected) exposure to COVID-19
CPT/HCPCS: 87636

== ENCOUNTER → 2021-04-22 | Outpatient (CLI) | payer BC ==
--- NOTE | 2021-04-22 10:27 | Diagnostic Imaging Report ---
PROCEDURE: MRI lumbar spine. INDICATION: Right hip pain. No known injury. TECHNIQUE: Multiplanar and multisequence magnetic resonance imagine was performed of the lumbar spine without contrast. CORRELATION STUDY: 04/05/2011. FINDINGS: Trace retrolisthesis of L1 on L2 and L2 on L3 along with trace anterolisthesis of L4 on L5. Also, very mild leftward curvature and/or rotation of the lumbar spine. Alignment is otherwise anatomic. The lumbar vertebral body heights are maintained and without geographic lesion. The conus appears unremarkable. L1-L2: Mild loss of disc space height with minimal broad-based disc bulge. Minimal flattening of the ventral thecal sac without significant canal or foraminal narrowing. L2-L3/L3-L4: Obxs-kg-gamjxrox loss of disc space height at both levels. Broad-based disc bulge is present. Slight flattening of the ventral thecal sac. Also, mild effacement of the perineural fat. There is abnormal mass-like density within the right aspect of the spinal canal posterior to L3 vertebral body extending into the right L3-L4 foramina. Fairly similar signal intensity to the disc space on T1 but is of increased signal intensity on the T2 sequences. This essentially fills the right foramina and measures approximately 13 x 9 x 16 mm. Additional neuroforamina with mild effacement of the perineural fat. L4-L5: Mild loss of disc space height. Ligamentum and facet hypertrophy, slightly greater on the right. There is presence of mild bilateral foraminal narrowing with slight abutment of the exiting nerve root. High-degree spinal canal stenosis is not present. L5-S1: Mild facet hypertrophy. Disc space height and signal intensity are fairly well maintained. Very mild bilateral foraminal narrowing, left slightly greater than right. Probable bilateral renal cortical cysts, largest on the left at 3 cm in size. IMPRESSION: 1. Abnormal mass in the right aspect of the spinal canal posterior to L3 vertebral body extending into the right L3-L4 foramina. Likely reflective of sequestered disc fragment. However, it does not completely follow disc signal intensity and alternative mass including potential neoplasm is not excluded. Correlation with post contrast-enhanced imaging is recommended. This does result in significant mass effect upon the right ventrolateral spinal canal and essentially complete filling of the foramina. Dictated by: Dictated on workstation # [id number]
== END ==
LOC: RAD 08:45
PROVIDERS: ATTEND Nurse Practitioner Family
DX: M25.551 Pain in right hip (principal); M54.50 Low back pain, unspecified; R22.2 Localized swelling, mass and lump, trunk
CPT/HCPCS: 72148

== ENCOUNTER → 2021-05-05 | Outpatient (CLI) | payer BC ==
[~2021-05-05] MED LIST changes: +GADOTERATE 0.5 MMOL/ML (CLARISCAN) 15 ML VIAL IV ONE
--- NOTE | 2021-05-05 16:17 | Diagnostic Imaging Report ---
PROCEDURE: MRI lumbar spine with contrast. TECHNIQUE: Multiplanar, multisequence MRI of the lumbar spine was performed with contrast. INDICATION: Further evaluation of mass seen on prior MRI lumbar spine. COMPARISON: MRI lumbar spine on 04/22/2021. FINDINGS: The soft tissue mass in the spinal canal at the L3 level right of midline is again visualized. This demonstrates central non-enhancement and appears contiguous with the L2-L3 intervertebral disc. No other areas of abnormal enhancement are seen in the lumbar spine. IMPRESSION: 1. Findings most consistent with extruded disc material at the L3 level right of midline. No enhancing soft tissue mass is seen to suggest neoplasm. Recommend follow-up as indicated. Dictated by: Dictated on workstation # [id number]
== END ==
LOC: RAD 14:45
PROVIDERS: ATTEND Nurse Practitioner Family
DX: R93.7 Abnormal findings on diagnostic imaging of other parts of musculoskeletal system (principal)
CPT/HCPCS: 72158

== ENCOUNTER → 2022-08-24 | Outpatient (CLI) | payer MEDICAID ==
[~2022-08-24] MED LIST changes: -CHOL4PAC PO; +CHOL4POW14 PO; -GADOTERATE 0.5 MMOL/ML (CLARISCAN) 15 ML VIAL IV ONE; +HOLD METFORMIN - RECEIVED CONTRAST 20 ML VIAL IV SCH; +IOHEXOL 350 MG/ML 100 ML (OMNIPAQUE 350) VIAL IV ONE; +NS 100 ML (IVPB) BAG IV ONE
--- NOTE | 2022-08-24 16:50 | Diagnostic Imaging Report ---
EXAMINATION: CT abdomen and pelvis with and without intravenous contrast. TECHNIQUE: Precontrast acquisitions were acquired through the abdomen and pelvis. Multiple contiguous axial images were obtained through the abdomen and pelvis after the administration of intravenous contrast. All CT scans use one or more of the following dose optimizing techniques: automated exposure control, MA and/or KvP adjustment based on patient size and exam type or iterative reconstruction. HISTORY: Hematuria. COMPARISON: 05/27/2020. FINDINGS: Limited views of the lower thorax are unremarkable. The liver is normal without focal lesion. There is no biliary ductal dilation. Gallbladder is absent. Pancreas is normal. Spleen is normal. Adrenal glands are normal. Simple cyst is seen in the left kidney. There is a 1 mm stone in the lower pole of the right kidney. There is no hydronephrosis. Urinary bladder is normal. Ureters are not well opacified. No ureteral stone is seen. No suspicious renal lesion. Calyces are normal. Bowel is normal in caliber without obstruction or inflammation. The appendix is normal. No free fluid or air. No abdominal or pelvic lymphadenopathy. Aorta is normal in caliber without aneurysm. There is no suspicious osseus lesion. IMPRESSION: Nonobstructing 1 mm right lower pole renal stone. Dictated by: Dictated on workstation # [id number]
== END ==
LOC: RAD 14:20
PROVIDERS: ATTEND Urology
DX: N20.0 Calculus of kidney (principal)
CPT/HCPCS: 74178

== ENCOUNTER → 2022-11-16 | Outpatient (CLI) | payer OTHER ==
[~2022-11-16] MED LIST changes: -HOLD METFORMIN - RECEIVED CONTRAST 20 ML VIAL IV SCH; -IOHEXOL 350 MG/ML 100 ML (OMNIPAQUE 350) VIAL IV ONE; -NS 100 ML (IVPB) BAG IV ONE
--- NOTE | 2022-11-16 10:43 | Diagnostic Imaging Report ---
EXAMINATION: AP, lateral, and spot view of the lumbar spine obtained. HISTORY: [facility]-LOW BACK PAIN COMPARISON: MRI of the lumbar spine on 05/05/2021. FINDINGS: Mild retrolisthesis of L1 on L2 and L2 on L3. No acute osseous findings. Moderate multilevel disc height loss. Aortic calcifications. Moderate facet arthropathy at L3-L4, L4-L5, and L5-S1. Included views of the abdomen demonstrates nondistended bowel. IMPRESSION: No acute osseous findings. Moderate degenerative changes in the lumbar spine. Dictated by: Dictated on workstation # [id number]
== END ==
LOC: RAD 08:53
PROVIDERS: ATTEND Family Medicine
DX: M47.816 Spondylosis without myelopathy or radiculopathy, lumbar region (principal)
CPT/HCPCS: 72100

== ENCOUNTER → 2023-03-30 | Outpatient (CLI) | payer SELFPAY ==
--- NOTE | 2023-03-30 12:42 | Diagnostic Imaging Report ---
PROCEDURE: MRI lumbar spine. TECHNIQUE: Multiplanar, multisequence MRI of the lumbar spine was performed without contrast. INDICATION: Chronic low back pain with surgery 2020. Recent problems with bowel incontinence. EXAMINATION: MRI lumbar spine without contrast 03/30/2023. COMPARISON: 05/05/2021 FINDINGS: There is grade 1 retrolisthesis at L2-L3 with remaining alignment is maintained. Vertebral heights preserved. Tip of the conus unremarkable in appearance and location. L1-L2: There is intervertebral disc space narrowing and disc desiccation. There is bilateral facet and ligamentum flavum hypertrophy. Left paracentral bulging disc with an annular tear noted. There is no significant central stenosis. There is moderate bilateral neural foraminal narrowing. L2-L3: There is intervertebral disc space narrowing and disc desiccation. There is bilateral facet and ligamentum flavum hypertrophy. There is a broad-based central bulging disc with secondary mild to moderate central stenosis and narrowing of the lateral recesses. There is severe bilateral neural foraminal stenosis right worse than left. Endplate changes consistent with Modic type I disease. L3-L4: There is intervertebral disc space narrowing and disc desiccation. There is bilateral facet and ligamentum flavum hypertrophy. There is a mild broad-based bulging disc. No significant central stenosis appreciated. There is moderate right and moderate to severe left neural foraminal stenosis. L4-L5: There is a broad-based bulging disc with bilateral facet and ligamentum flavum hypertrophy. There is flattening the ventral thecal sac without significant central stenosis. There is severe bilateral neural foraminal narrowing L5-S1: Disc desiccation with a tiny central disc protrusion is noted. Bowel facet and ligamentum flavum hypertrophy noted. No central stenosis is seen. There is severe left and moderate right neural foraminal narrowing. The visualized intra-abdominal structures demonstrate a large cystic lesion incompletely imaged left kidney. No acute abnormalities appreciated. IMPRESSION: 1. Multilevel diffuse degenerative findings as detailed above. Dictated by: Dictated on workstation # [id number]
== END ==
LOC: RAD 09:03
PROVIDERS: ATTEND Family Medicine
DX: M51.36 Other intervertebral disc degeneration, lumbar region (principal); M24.28 Disorder of ligament, vertebrae; M48.061 Spinal stenosis, lumbar region without neurogenic claudication; N39.41 Urge incontinence; R15.2 Fecal urgency
CPT/HCPCS: 72148

== ENCOUNTER → 2023-04-25 | Outpatient (CLI) | payer SELFPAY ==
--- NOTE | 2023-04-25 14:35 | Diagnostic Imaging Report ---
PROCEDURE: US Renal Bilateral. TECHNIQUE: Multiple real-time grayscale images were obtained over the kidneys in various projections bilaterally. INDICATION: Left renal cyst noted on recent MRI. COMPARISON: Correlation is made with prior CT from 08/24/2022 as well as MRI from 03/30/2023. FINDINGS: Right kidney measures 9.9 x 3.9 x 4.1 cm, and left kidney measures 9.8 x 5.2 x 5.1 cm. Cortical thickness and echogenicity is normal bilaterally. There is a cyst in the left kidney, approximately 3.6 cm, stable when compared with prior CT. No calculi or hydronephrosis is identified. Bladder volume is 49 mL. Bilateral ureteral jets are visualized. No post-void volume is identified. IMPRESSION: Simple left renal cyst, stable since CT from 08/24/2022. No hydronephrosis is detected. Dictated by: Dictated on workstation # [id number]
== END ==
LOC: RAD 09:00
PROVIDERS: ATTEND Family Medicine
DX: N28.1 Cyst of kidney, acquired (principal)
CPT/HCPCS: 76770

== ENCOUNTER → 2023-05-24 | Outpatient (RCR) | payer SELFPAY | END | disposition home or self-care (01) | PROVIDERS: ATTEND Family Medicine | DX: M50.30 Other cervical disc degeneration, unspecified cervical region (principal); M48.00 Spinal stenosis, site unspecified ==